=== PATIENT | male | born 1955 | race Caucasian/White ===

== ENCOUNTER 2020-04-12 | Outpatient (REF) | payer MEDICARE, OTHER, SELFPAY ==
[2020-04-12 10:28] LABS: MANUAL DIFF FLAG NO
[2020-04-12 10:44] LABS: Basophils Percent Auto 0.4 % (0-2); Eosinophils Absolute Auto 0.3 X10*3/uL (0.0-0.4); Eosinophils Percent Auto 4.6 % (0-4); Hematocrit 39.9 % (42-52); Hemoglobin 12.8 g/dl (14.0-18.0); Imm Gran Abs Auto 0.03 X10*3/uL (0.00-0.03); Imm Gran Pct Auto 0.4 % (0.0-0.4); Lymphocytes Absolute Auto 0.9 X10*3/uL (1.2-4.9); Lymphocytes Percent Auto 13.4 % (20-40); Mean Corpuscular HGB Conc 32.1 g/dl (31.0-36.0); Mean Corpuscular Hemoglobin 34.2 pg (27.0-33.0); Mean Corpuscular Volume 106.7 fL (80-98); Mean Platelet Volume 11.4 fL (9.4-12.4); Monocytes Absolute Auto 0.6 X10*3/uL (0.1-1.2); Monocytes Percent Auto 8.8 % (2-11); Neutrophils Percent Auto 72.4 % (45-73); Platelet Count 146 X10*3/uL (160-400); Red Blood Count 3.74 X10*6/uL (4.60-5.80); Red Cell Distribution Width 13.9 % (11.0-16.0); White Blood Count 6.9 X10*3/uL (4.8-10.8)
[2020-04-12 11:10] LABS: Alanine Aminotransferase 16 U/L (0-40); Albumin Level 3.7 g/dL (3.5-5.0); Alkaline Phosphatase 77 U/L (39-117); Anion Gap 10 (12-20); Aspartate Amino Transferase 17 U/L (5-37); Bilirubin Direct 0.4 mg/dL (0.0-0.5); Bilirubin Total 0.8 mg/dL (0.0-1.0); Blood Urea Nitrogen 13 mg/dL (9-16); Calcium 8.7 mg/dL (8.4-10.2); Carbon Dioxide 35 mmol/L (22-29); Chloride 98 mmol/L (96-108); Estimated Average Glucose 117 mg/dL; Estimated Glomerular Filt Rate > 60; Glucose Random 106 mg/dL (60-115); Hemoglobin A1c % 5.7 %; Sodium 139 mmol/L (135-145); Total Protein 6.7 g/dL (6.5-8.0); Uric Acid 4.1 mg/dL (3.4-7.0)
== END 2020-04-12 00:01 ==
LOC: HO.LHD
PROVIDERS: Visit Provider Internal Medicine
DX: R53.83 Other fatigue (principal); E11.9 Type 2 diabetes mellitus without complications; M10.9 Gout, unspecified
CPT/HCPCS: 36415; 80053; 80076; 83036; 84550; 85025

== ENCOUNTER 2020-06-13 07:25 | Outpatient (REF) | payer MEDICARE, OTHER, SELFPAY ==
[2020-06-13 11:54] LABS: Basophils Percent Auto 0.3 % (0-2); Eosinophils Absolute Auto 0.1 X10*3/uL (0.0-0.4); Eosinophils Percent Auto 1.6 % (0-4); Hematocrit 37.2 % (42-52); Hemoglobin 12.2 g/dl (14.0-18.0); Imm Gran Abs Auto 0.02 X10*3/uL (0.00-0.03); Imm Gran Pct Auto 0.3 % (0.0-0.4); Lymphocytes Absolute Auto 0.6 X10*3/uL (1.2-4.9); Lymphocytes Percent Auto 8.1 % (20-40); MANUAL DIFF FLAG SCAN; Mean Corpuscular HGB Conc 32.8 g/dl (31.0-36.0); Mean Corpuscular Hemoglobin 34.6 pg (27.0-33.0); Mean Corpuscular Volume 105.4 fL (80-98); Mean Platelet Volume 11.5 fL (9.4-12.4); Monocytes Absolute Auto 0.6 X10*3/uL (0.1-1.2); Monocytes Percent Auto 8.7 % (2-11); Neutrophils Absolute Auto 5.7 X10*3/uL (2.0-8.3); Platelet Count 159 X10*3/uL (160-400); Red Blood Count 3.53 X10*6/uL (4.60-5.80); Red Cell Distribution Width 14.3 % (11.0-16.0); SCAN SMEAR FLAG 1
[2020-06-13 12:22] LABS: Alanine Aminotransferase 15 U/L (0-40); Albumin Level 3.3 g/dL (3.5-5.0); Alkaline Phosphatase 77 U/L (39-117); Anion Gap 13 (12-20); Aspartate Amino Transferase 17 U/L (5-37); Bilirubin Total 0.7 mg/dL (0.0-1.0); Blood Urea Nitrogen 19 mg/dL (9-16); Calcium 8.6 mg/dL (8.4-10.2); Carbon Dioxide 34 mmol/L (22-29); Chloride 92 mmol/L (96-108); Estimated Glomerular Filt Rate > 60; Glucose Random 142 mg/dL (60-115); Potassium 4.5 mmol/L (3.3-5.1); Sodium 134 mmol/L (135-145); Total Protein 6.1 g/dL (6.5-8.0)
[2020-06-13 12:34] LABS: SLIDE REVIEW VERIFIED
== END 2020-06-13 07:26 | disposition home or self-care (01) ==
LOC: HO.LHD 07:25
PROVIDERS: Visit Provider Internal Medicine
DX: Z13.89 Encounter for screening for other disorder (principal)
CPT/HCPCS: 36415; 80053; 85025

== ENCOUNTER 2020-06-16 11:39 | Inpatient (IN) | payer MEDICARE, MEDICAID, SELFPAY ==
[2020-06-16] VITALS (17 sets, daily range): BP systolic 109–163; BP diastolic 54–116; PULSE 64–96; RESP 13–40; TEMP 35.6–36.7; O2SAT 80–99; BMI 64.2; BMI 65.3
--- NOTE | ~2020-06-16 | XR_ITS ---
EXAMINATION: XR ABDOMEN KUB CLINICAL INDICATION: Abdominal distention COMPARISON: None TECHNIQUE: AP view of the abdomen. XR/XR KUB FINDINGS/IMPRESSION: The study is nondiagnostic due to patient body habitus. The upper abdomen is not visualized. No definite evidence of obstruction in the lower abdomen and pelvis.
--- NOTE | ~2020-06-16 | XR_ITS ---
EXAMINATION: XR CHEST CLINICAL INFORMATION: SOB. Cardiomegaly. COMPARISON: None TECHNIQUE: Frontal view of the chest was obtained. FINDINGS: There is moderate to significant cardiomegaly with increased vascularity consistent CHF. The upper lungs are clear. There is moderate opacity left lung base likely effusion. No gross bony abnormality seen. XR/XR chest 1V IMPRESSION: Cardiomegaly with CHF.
[2020-06-16] MEDS: Furosemide 40 MG/4 ML VIAL IVPUSH (11:55)
--- NOTE | 2020-06-16 11:56 | ECG_ITS ---
Test Reason : DYSPNEA Blood Pressure : / mmHG Vent. Rate : 077 BPM Atrial Rate : 375 BPM P-R Int : 000 ms QRS Dur : 094 ms QT Int : 392 ms P-R-T Axes : 000 060 -14 degrees QTc Int : 443 ms Atrial fibrillation Low voltage QRS Cannot rule out Anterior infarct , age undetermined Abnormal ECG When compared with ECG of 11-JAN-2016 20:01, Minimal criteria for Anterior infarct are now Present Nonspecific T wave abnormality no longer evident in Lateral leads Referred By: Carlie Sutton Electronically Signed By:Barry Rae
[2020-06-16 12:06] LABS: Basophils Percent Auto 0.1 % (0-2); Eosinophils Percent Auto 0.1 % (0-4); Hematocrit 41.7 % (42-52); Hemoglobin 13.7 g/dl (14.0-18.0); Imm Gran Abs Auto 0.05 X10*3/uL (0.00-0.03); Imm Gran Pct Auto 0.5 % (0.0-0.4); Lymphocytes Absolute Auto 0.5 X10*3/uL (1.2-4.9); Lymphocytes Percent Auto 4.8 % (20-40); MANUAL DIFF FLAG SCAN; Mean Corpuscular HGB Conc 32.9 g/dl (31.0-36.0); Mean Corpuscular Hemoglobin 34.6 pg (27.0-33.0); Mean Corpuscular Volume 105.3 fL (80-98); Mean Platelet Volume 11.4 fL (9.4-12.4); Monocytes Absolute Auto 0.6 X10*3/uL (0.1-1.2); Neutrophils Absolute Auto 9.2 X10*3/uL (2.0-8.3); Neutrophils Percent Auto 88.5 % (45-73); Platelet Count 208 X10*3/uL (160-400); Red Blood Count 3.96 X10*6/uL (4.60-5.80); Red Cell Distribution Width 14.3 % (11.0-16.0); SCAN SMEAR FLAG 1; White Blood Count 10.4 X10*3/uL (4.8-10.8)
--- NOTE | 2020-06-16 12:07 | PC.NURSE ---
patient awake/alert, editor applied, ekg performed, iv access obtained/labs drawn, daughter at bedside states pt is a daily drinker of significant amounts of alcohol, 40 iv lasix given per verbal order by dr. stanton, RT at bedside, will continue to monitor.
[2020-06-16 12:12] LABS: VBG Base Excess 8.9 mmol/L; VBG HCO3 39 mmol/L (22-26); VBG pCO2 81 mmHg; VBG pH 7.29 (7.32-7.43); VBG pO2 40 mmHg
[2020-06-16 12:13] LABS: Venous Blood Gas Refer to POC result
[2020-06-16 12:20] LABS: Prothrombin Time 70.2 SEC (10.8-13.0)
[2020-06-16 12:22] LABS: INTERNATIONAL NORM RATIO 5.8 (0.9-1.1)
[2020-06-16 12:23] LABS: D Dimer < 200 NG/ML
[2020-06-16 12:29] LABS: SLIDE REVIEW VERIFIED
[2020-06-16 12:35] LABS: Alanine Aminotransferase 17 U/L (0-40); Albumin Level 3.8 g/dL (3.5-5.0); Alkaline Phosphatase 84 U/L (39-117); Anion Gap 14 (12-20); Aspartate Amino Transferase 22 U/L (5-37); Bilirubin Direct 0.3 mg/dL (0.0-0.5); Bilirubin Total 0.5 mg/dL (0.0-1.0); Blood Urea Nitrogen 17 mg/dL (9-16); Carbon Dioxide 34 mmol/L (22-29); Chloride 90 mmol/L (96-108); Creatinine Clr Calc Pharmacy 181.3; Estimated Glomerular Filt Rate > 60; Glucose Random 137 mg/dL (60-115); Potassium 4.7 mmol/L (3.3-5.1); Sodium 133 mmol/L (135-145); Total Protein 7.1 g/dL (6.5-8.0)
[2020-06-16 12:41] LABS: B Type Natriuretic Peptide 722 pg/mL (<100); Troponin-I High Sensitivity 58.8 ng/L (<3.5-35.0)
--- NOTE | 2020-06-16 12:54 | ED.GENADULT ---
HPI - General Adult General Chief complaint: Upper Respiratory Symptoms Stated complaint: SOB ON CPAP,NO COVID CONCERN Time Seen by Provider: 06/16/20 11:53 Source: EMS Mode of arrival: EMS Limitations: other History of Present Illness HPI narrative: Patient comes to emergency room complaining of shortness of breath. Patient is brought by EMS. Patient has history of CHF, denies history of COPD. Per EMS, patient was found at home, oxygen saturation in the high 70s, started on CPAP. Patient is awake and alert, denies chest pain, only complaining of shortness of breath. Related Data Home Medications Medication Instructions Recorded Confirmed allopurinol 1 tab PO DAILY 06/16/20 06/16/20 diltiazem HCl 180 mg PO BID 06/16/20 06/16/20 furosemide 1 tab PO DAILY 06/16/20 06/16/20 lisinopril 1 tab PO DAILY 06/16/20 06/16/20 lorazepam 1 tab PO TID PRN 06/16/20 06/16/20 metformin 1 tab PO BID 06/16/20 06/16/20 metoprolol tartrate 1 tab PO BID 06/16/20 06/16/20 oxycodone 5 tab PO NEEDED 06/16/20 06/16/20 oxycodone [OxyContin] 1 tab PO BID 06/16/20 06/16/20 oxycodone myristate [Xtampza ER] 1 cap PO BID 06/16/20 06/16/20 simvastatin 1 tab PO BEDTIME 06/16/20 06/16/20 warfarin 1 tab PO BEDTIME 06/16/20 06/16/20 warfarin 2 mg PO BEDTIME 06/16/20 06/16/20 Allergies Allergy/AdvReac Type Severity Reaction Status Date / Time codeine [Codeine] Allergy Intermediate RASH Verified 06/16/20 11:48 Review of Systems Review of Systems: Constitutional : No Weight loss, No Fever, No Chills ENT/Mouth : No Hearing loss, No Ear Pain, No Nasal Congestion, No Sinus Pain, No Hoarseness, No sore throat, No Rhinorrhea, No Swallowing Difficulty Eyes: No Eye Pain, No Swelling, No Redness, No Foreign Body, No Discharge, No Vision Changes Cardiovascular : No Chest Pain, complaining of shortness of breath, worsening orthopnea, decrease exercise tolerance Respiratory : No Cough, No Sputum, No Wheezing, No Smoke Exposure, complaining of dyspnea Gastrointestinal : No Nausea, No Vomiting, No Diarrhea, No Constipation, No abdominal Pain, No Hematochezia, No Melena Genitourinary : no irregular bleeding, No Dysuria, No Urinary Frequency, No Hematuria, No Urinary Incontinence, No Urgency, No Flank Pain, No Urinary Flow Changes, No Hesitancy Musculoskeletal : No joint pain, No Myalgias, No Joint Swelling Skin : No Skin Lesions, No rash Neuro : Complaining of chronic paresthesias in lower extremities Psych : No Anxiety/Panic, No Depression, No SI/HI Heme/Lymph: Easy bruising, patient on Coumadin Endocrine :No Temperature Intolerance PMFSH Past Medical History Medical History Afib Back pain with history of spinal surgery CHF (congestive heart failure) Diabetes History of gout HTN (hypertension) Hypercholesterolemia Knee osteoarthritis Morbid obesity Peripheral neuropathy Social History Social History Alcohol intake: current Alcohol intake frequency: 3 or more drinks per day Smoking Status: Never smoker Use of substances other than those prescribed or required for medical reasons: No Advance Directives: No Advance Directives Information Provided: No Physical Exam Vital Signs: Vital Signs: Last Vital Signs Temp 98.0 F 06/16/20 16:00 Pulse 73 06/16/20 16:00 Resp 30 H 06/16/20 16:00 BP 146/65 H 06/16/20 16:00 Pulse Ox 96 06/16/20 16:00 Body Mass Index 65.3 Appearance: Alert. Oriented X3. In mild to moderate respiratory distress, on BiPAP states he feels much better Eyes: Pupils equal, round and reactive to light. ENT: Pharynx normal. Neck: Normal inspection. Neck supple. CVS: S1-S2, occasional runs of AFib with RVR lasting approximately 10-20 seconds and self resolve Respiratory: In [id number] respiratory distress. Bibasilar crackles, No Wheezing. No rales Abdomen: Soft and nontender. No rigidity. No distention. good BS x4 Skin: Skin warm and dry. Extremities: +3 pitting edema bilaterally. Neuro: Cranial nerves 2-12 grossly intact Course Course Course Narrative: The patient and EMS, patient does not have history of asthma or COPD. Patient was put on BiPAP initially and given 60 mg of Lasix which improved his oxygen saturation and his mental status.. Patient was on BiPAP for 1 hour, patient is more alert, awake. Patient on 6 L. lactic acid and blood culture still pending. Patient's daughter is at bedside, she confirmed that the patient does not have history of COPD or asthma. Chest x-ray shows CHF with cardiomegaly, no suspicion of pneumonia or sepsis at this time. After the 1 hour of BiPAP, patient was on 4-6 L of nasal cannula. Patient gradually became more somnolent. Oxygen remained stable, oxygen 93% on 4 L nasal cannula, blood pressure 116/78, sepsis not suspected. Patient is once again is on BiPAP. I discussed the patient with Dr. Hinton, patient admitted to the ICU. Troponin of 58 likely secondary to demand ischemia. Troponin 2. Is pending On physical exam it was noted that the patient has abdominal distension, no abdominal tenderness. The KUB was nondiagnostic due to patient's body habitus. Patient does not fit through either of our CT scans, patient to be monitored clinically. Until now, patient has not been complaining of abdominal pain. Medical Decision Making Lab Data Result diagrams: 06/16/20 15:35 06/16/20 11:59 Labs: Lab Results 06/16/20 06/16/20 06/16/20 Range/Units 11:59 11:59 11:59 WBC 10.4 (4.8-10.8) X10*3/uL RBC 3.96 L (4.60-5.80) X10*6/uL Hgb 13.7 L (14.0-18.0) g/dl Hct 41.7 L (42-52) % MCV 105.3 H (80-98) fL MCH 34.6 H (27.0-33.0) pg MCHC 32.9 (31.0-36.0) g/dl RDW 14.3 (11.0-16.0) % Plt Count 208 D (160-400) X10*3/uL MPV 11.4 (9.4-12.4) fL Immature Gran % (Auto) 0.5 H (0.0-0.4) % Neut % (Auto) 88.5 H (45-73) % Lymph % (Auto) 4.8 L (20-40) % [place] % (Auto) 6.0 (2-11) % Eos % (Auto) 0.1 (0-4) % Baso % (Auto) 0.1 (0-2) % Lymph # (Auto) 0.5 L (1.2-4.9) X10*3/uL [place] # (Auto) 0.6 (0.1-1.2) X10*3/uL Eos # (Auto) 0.0 (0.0-0.4) X10*3/uL Baso # (Auto) 0.0 (0.0-0.2) X10*3/uL Abs Immat Gran (auto) 0.05 H (0.00-0.03) X10*3/uL Absolute Neuts (auto) 9.2 H (2.0-8.3) X10*3/uL Absolute Nucleated RBC 0.000 (0.0-0.012) X10*3/uL Nucleated RBC % (auto) 0.0 (0.0-0.2) /100WBC Smear Tech's Comments VERIFIED PT 70.2 H (10.8-13.0) SEC INR 5.8 H* (0.9-1.1) D-Dimer < 200 NG/ML VBG pH VBG pCO2 mmHg VBG pO2 mmHg VBG HCO3 (22-26) mmol/L VBG O2 Saturation % VBG Base Excess mmol/L Sodium 133 L (135-145) mmol/L Potassium 4.7 (3.3-5.1) mmol/L Chloride 90 L (96-108) mmol/L Carbon Dioxide 34 H (22-29) mmol/L Anion Gap 14 (12-20) BUN 17 H (9-16) mg/dL Creatinine 0.79 (0.5-1.4) mg/dL Estim Creat Clear Calc 181.3 Estimated GFR > 60 Random Glucose 137 H (60-115) mg/dL Lactic Acid (0.5-2.0) mmol/L Calcium 9.0 (8.4-10.2) mg/dL Total Bilirubin 0.5 (0.0-1.0) mg/dL Direct Bilirubin 0.3 (0.0-0.5) mg/dL AST 22 (5-37) U/L ALT 17 (0-40) U/L Alkaline Phosphatase 84 (39-117) U/L Troponin I High Sens (<3.5-35.0) ng/L B-Natriuretic Peptide (<100) pg/mL Total Protein 7.1 (6.5-8.0) g/dL Albumin 3.8 (3.5-5.0) g/dL Urine Color Urine Appearance Urine pH (5.0-8.0) Ur Specific [place] (1.005-1.025) Urine Protein (NEG-TRACE) MG/DL Urine Glucose (UA) (NEG) MG/DL Urine Ketones (NEG) MG/DL Urine Blood (NEG) Urine Nitrite (NEG) Ur Leukocyte Esterase (NEG) Urine RBC (0) /HPF Urine WBC (0-4) /HPF Ur Squamous Epith Cells /LPF Urine Bacteria /LPF Urine Mucus /LPF Ethyl Alcohol mg/dL Coronavirus (PCR) (Negative) Influenza Type A (PCR) (Negative) Influenza Type B (PCR) (Negative) RSV RNA Qual (PCR) (Negative) 06/16/20 06/16/20 06/16/20 Range/Units 11:59 11:59 12:02 WBC (4.8-10.8) X10*3/uL RBC (4.60-5.80) X10*6/uL Hgb (14.0-18.0) g/dl Hct (42-52) % MCV (80-98) fL MCH (27.0-33.0) pg MCHC (31.0-36.0) g/dl RDW (11.0-16.0) % Plt Count (160-400) X10*3/uL MPV (9.4-12.4) fL Immature Gran % (Auto) (0.0-0.4) % Neut % (Auto) (45-73) % Lymph % (Auto) (20-40) % [place] % (Auto) (2-11) % Eos % (Auto) (0-4) % Baso % (Auto) (0-2) % Lymph # (Auto) (1.2-4.9) X10*3/uL [place] # (Auto) (0.1-1.2) X10*3/uL Eos # (Auto) (0.0-0.4) X10*3/uL Baso # (Auto) (0.0-0.2) X10*3/uL Abs Immat Gran (auto) (0.00-0.03) X10*3/uL Absolute Neuts (auto) (2.0-8.3) X10*3/uL Absolute Nucleated RBC (0.0-0.012) X10*3/uL Nucleated RBC % (auto) (0.0-0.2) /100WBC Smear Tech's Comments PT (10.8-13.0) SEC INR (0.9-1.1) D-Dimer NG/ML VBG pH Cancelled VBG pCO2 mmHg VBG pO2 mmHg VBG HCO3 (22-26) mmol/L VBG O2 Saturation % VBG Base Excess mmol/L Sodium (135-145) mmol/L Potassium (3.3-5.1) mmol/L Chloride (96-108) mmol/L Carbon Dioxide (22-29) mmol/L Anion Gap (12-20) BUN (9-16) mg/dL Creatinine (0.5-1.4) mg/dL Estim Creat Clear Calc Estimated GFR Random Glucose (60-115) mg/dL Lactic Acid (0.5-2.0) mmol/L Calcium (8.4-10.2) mg/dL Total Bilirubin (0.0-1.0) mg/dL Direct Bilirubin (0.0-0.5) mg/dL AST (5-37) U/L ALT (0-40) U/L Alkaline Phosphatase (39-117) U/L Troponin I High Sens 58.8 H (<3.5-35.0) ng/L B-Natriuretic Peptide 722 H (<100) pg/mL Total Protein (6.5-8.0) g/dL Albumin (3.5-5.0) g/dL Urine Color Urine Appearance Urine pH (5.0-8.0) Ur Specific [place] (1.005-1.025) Urine Protein (NEG-TRACE) MG/DL Urine Glucose (UA) (NEG) MG/DL Urine Ketones (NEG) MG/DL Urine Blood (NEG) Urine Nitrite (NEG) Ur Leukocyte Esterase (NEG) Urine RBC (0) /HPF Urine WBC (0-4) /HPF Ur Squamous Epith Cells /LPF Urine Bacteria /LPF Urine Mucus /LPF Ethyl Alcohol < 10 mg/dL Coronavirus (PCR) (Negative) Influenza Type A (PCR) (Negative) Influenza Type B (PCR) (Negative) RSV RNA Qual (PCR) (Negative) 06/16/20 06/16/20 06/16/20 Range/Units 12:04 12:45 13:12 WBC (4.8-10.8) X10*3/uL RBC (4.60-5.80) X10*6/uL Hgb (14.0-18.0) g/dl Hct (42-52) % MCV (80-98) fL MCH (27.0-33.0) pg MCHC (31.0-36.0) g/dl RDW (11.0-16.0) % Plt Count (160-400) X10*3/uL MPV (9.4-12.4) fL Immature Gran % (Auto) (0.0-0.4) % Neut % (Auto) (45-73) % Lymph % (Auto) (20-40) % [place] % (Auto) (2-11) % Eos % (Auto) (0-4) % Baso % (Auto) (0-2) % Lymph # (Auto) (1.2-4.9) X10*3/uL [place] # (Auto) (0.1-1.2) X10*3/uL Eos # (Auto) (0.0-0.4) X10*3/uL Baso # (Auto) (0.0-0.2) X10*3/uL Abs Immat Gran (auto) (0.00-0.03) X10*3/uL Absolute Neuts (auto) (2.0-8.3) X10*3/uL Absolute Nucleated RBC (0.0-0.012) X10*3/uL Nucleated RBC % (auto) (0.0-0.2) /100WBC Smear Tech's Comments PT (10.8-13.0) SEC INR (0.9-1.1) D-Dimer NG/ML VBG pH 7.29 L VBG pCO2 81 mmHg VBG pO2 40 mmHg VBG HCO3 39 H (22-26) mmol/L VBG O2 Saturation 61.0 % VBG Base Excess 8.9 mmol/L Sodium (135-145) mmol/L Potassium (3.3-5.1) mmol/L Chloride (96-108) mmol/L Carbon Dioxide (22-29) mmol/L Anion Gap (12-20) BUN (9-16) mg/dL Creatinine (0.5-1.4) mg/dL Estim Creat Clear Calc Estimated GFR Random Glucose (60-115) mg/dL Lactic Acid (0.5-2.0) mmol/L Calcium (8.4-10.2) mg/dL Total Bilirubin (0.0-1.0) mg/dL Direct Bilirubin (0.0-0.5) mg/dL AST (5-37) U/L ALT (0-40) U/L Alkaline Phosphatase (39-117) U/L Troponin I High Sens (<3.5-35.0) ng/L B-Natriuretic Peptide (<100) pg/mL Total Protein (6.5-8.0) g/dL Albumin (3.5-5.0) g/dL Urine Color YELLOW Urine Appearance CLEAR Urine pH 6.5 (5.0-8.0) Ur Specific [place] 1.025 (1.005-1.025) Urine Protein TRACE (NEG-TRACE) MG/DL Urine Glucose (UA) NEG (NEG) MG/DL Urine Ketones NEG (NEG) MG/DL Urine Blood NEG (NEG) Urine Nitrite NEG (NEG) Ur Leukocyte Esterase NEG (NEG) Urine RBC 0 (0) /HPF Urine WBC 0-2 (0-4) /HPF Ur Squamous Epith Cells 1+ /LPF Urine Bacteria NONE /LPF Urine Mucus TRACE /LPF Ethyl Alcohol mg/dL Coronavirus (PCR) NEGATIVE (Negative) Influenza Type A (PCR) NEGATIVE (Negative) Influenza Type B (PCR) NEGATIVE (Negative) RSV RNA Qual (PCR) NEGATIVE (Negative) 06/16/20 06/16/20 Range/Units 14:18 14:22 WBC (4.8-10.8) X10*3/uL RBC (4.60-5.80) X10*6/uL Hgb (14.0-18.0) g/dl Hct (42-52) % MCV (80-98) fL MCH (27.0-33.0) pg MCHC (31.0-36.0) g/dl RDW (11.0-16.0) % Plt Count (160-400) X10*3/uL MPV (9.4-12.4) fL Immature Gran % (Auto) (0.0-0.4) % Neut % (Auto) (45-73) % Lymph % (Auto) (20-40) % [place] % (Auto) (2-11) % Eos % (Auto) (0-4) % Baso % (Auto) (0-2) % Lymph # (Auto) (1.2-4.9) X10*3/uL [place] # (Auto) (0.1-1.2) X10*3/uL Eos # (Auto) (0.0-0.4) X10*3/uL Baso # (Auto) (0.0-0.2) X10*3/uL Abs Immat Gran (auto) (0.00-0.03) X10*3/uL Absolute Neuts (auto) (2.0-8.3) X10*3/uL Absolute Nucleated RBC (0.0-0.012) X10*3/uL Nucleated RBC % (auto) (0.0-0.2) /100WBC Smear Tech's Comments PT (10.8-13.0) SEC INR (0.9-1.1) D-Dimer NG/ML VBG pH 7.29 L VBG pCO2 75 mmHg VBG pO2 45 mmHg VBG HCO3 37 H (22-26) mmol/L VBG O2 Saturation 71.0 % VBG Base Excess 7.1 mmol/L Sodium (135-145) mmol/L Potassium (3.3-5.1) mmol/L Chloride (96-108) mmol/L Carbon Dioxide (22-29) mmol/L Anion Gap (12-20) BUN (9-16) mg/dL Creatinine (0.5-1.4) mg/dL Estim Creat Clear Calc Estimated GFR Random Glucose (60-115) mg/dL Lactic Acid 1.7 (0.5-2.0) mmol/L Calcium (8.4-10.2) mg/dL Total Bilirubin (0.0-1.0) mg/dL Direct Bilirubin (0.0-0.5) mg/dL AST (5-37) U/L ALT (0-40) U/L Alkaline Phosphatase (39-117) U/L Troponin I High Sens (<3.5-35.0) ng/L B-Natriuretic Peptide (<100) pg/mL Total Protein (6.5-8.0) g/dL Albumin (3.5-5.0) g/dL Urine Color Urine Appearance Urine pH (5.0-8.0) Ur Specific [place] (1.005-1.025) Urine Protein (NEG-TRACE) MG/DL Urine Glucose (UA) (NEG) MG/DL Urine Ketones (NEG) MG/DL Urine Blood (NEG) Urine Nitrite (NEG) Ur Leukocyte Esterase (NEG) Urine RBC (0) /HPF Urine WBC (0-4) /HPF Ur Squamous Epith Cells /LPF Urine Bacteria /LPF Urine Mucus /LPF Ethyl Alcohol mg/dL Coronavirus (PCR) (Negative) Influenza Type A (PCR) (Negative) Influenza Type B (PCR) (Negative) RSV RNA Qual (PCR) (Negative) Imaging Data Chest x-ray: Radiologist's impression: FINDINGS: There is moderate to significant cardiomegaly with increased vascularity consistent CHF. The upper lungs are clear. There is moderate opacity left lung base likely effusion. No gross bony abnormality seen. XR/XR chest 1V IMPRESSION: Cardiomegaly with CHF. ECG Data Attestation: I personally reviewed and interpreted this ECG as follows: (Inhalation, heart rate 77, no ST segment depression or elevation) Critical Care Time Critical Care Time Total Critical Care Time: 120 Discharge Plan Discharge Clinical Impression: Respiratory failure CHF (congestive heart failure) Qualifiers: Heart failure type: other Qualified Code(s): I50.9 - Heart failure, unspecified Patient Disposition: Admitted As Inpatient
[2020-06-16 13:20] LABS: Glucose Urine UA NEG (NEG); Leukocyte Esterase Urine NEG (NEG); Nitrite Urine NEG (NEG); PH 6.5 (5.0-8.0); Specific Gravity - Urine 1.025 (1.005-1.025); Urine Blood NEG (NEG); Urine Ketones NEG (NEG); Urine Protein TRACE MG/DL (NEG-TRACE)
[2020-06-16 13:21] LABS: Appearance Urine CLEAR; Color Urine YELLOW
[2020-06-16] MEDS: LORazepam 1 MG TABLET PO (13:22)
[2020-06-16] MEDS: oxyCODONE HCl Immed Release 5 MG TABLET PO (13:22)
[2020-06-16 13:26] LABS: Mucus Urine TRACE /LPF; RBC Urine 0 /HPF (0); Squamous Epithelial Cell Urine 1+ /LPF; WBC Urine 0-2 /HPF (0-4)
[2020-06-16 13:28] LABS: Influenza A PCR NEGATIVE (Negative); Influenza B PCR NEGATIVE (Negative); Resp Syncy Virus RNA Qual PCR NEGATIVE (Negative); SARS COV2 PCR INHOUSE NEGATIVE (Negative)
--- NOTE | 2020-06-16 14:22 | PC.NURSE ---
patient a&ox3, daughter at bedside pt afib 60s-80s on organizational development specialist, 91% on NC, labs drawn by phlebotomy, will continue to monitor.
[2020-06-16 14:27] LABS: Venous Blood Gas Refer to POC result
[2020-06-16 14:29] LABS: VBG Base Excess 7.1 mmol/L; VBG HCO3 37 mmol/L (22-26); VBG pCO2 75 mmHg; VBG pH 7.29 (7.32-7.43); VBG pO2 45 mmHg
[2020-06-16 14:42] LABS: Lactic Acid 1.7 mmol/L (0.5-2.0)
[2020-06-16 15:45] LABS: Hematocrit 40.9 % (42-52); Hemoglobin 13.3 g/dl (14.0-18.0); Imm Gran Abs Auto 0.04 X10*3/uL (0.00-0.03); Imm Gran Pct Auto 0.4 % (0.0-0.4); Lymphocytes Absolute Auto 0.4 X10*3/uL (1.2-4.9); Lymphocytes Percent Auto 4.2 % (20-40); MANUAL DIFF FLAG SCAN; Mean Corpuscular HGB Conc 32.5 g/dl (31.0-36.0); Mean Corpuscular Hemoglobin 34.5 pg (27.0-33.0); Mean Corpuscular Volume 106.2 fL (80-98); Mean Platelet Volume 11.1 fL (9.4-12.4); Monocytes Absolute Auto 0.5 X10*3/uL (0.1-1.2); Monocytes Percent Auto 4.9 % (2-11); Neutrophils Absolute Auto 9.5 X10*3/uL (2.0-8.3); Neutrophils Percent Auto 90.5 % (45-73); Platelet Count 203 X10*3/uL (160-400); Red Blood Count 3.85 X10*6/uL (4.60-5.80); Red Cell Distribution Width 14.2 % (11.0-16.0); SCAN SMEAR FLAG 1; White Blood Count 10.5 X10*3/uL (4.8-10.8)
[2020-06-16 15:52] LABS: Ethanol < 10 mg/dL
[2020-06-16] MEDS: Heparin Sodium,Porcine 5,000 UNIT/ML VIAL 5000 UNIT SUBCUT (16:10)
--- NOTE | 2020-06-16 16:16 | PC.NURSE ---
patients daughter left, girlfriend isaiah now in room, patient put back on bipap by RT, pvc monitor afib 70s, vitals stable, chong cath inserted and emptied/documented to begin 1hr I&O, will continue to monitor.
[2020-06-16 16:26] LABS: Troponin-I High Sensitivity 60.4 ng/L (<3.5-35.0)
[2020-06-16] MEDS: Furosemide 500 MG in Container,Empty 0 ML IVCONT (17:44)
--- NOTE | 2020-06-16 17:45 | PC.NURSE ---
pharmacy mixed furosomide and brought to ed, now hanging per order
--- NOTE | 2020-06-16 19:05 | PC.NURSE ---
patient currently sleeping, son at bedside, pt afib on monitor ranging [id number], vss, chong cath patient/draining, will continue to monitor.
[2020-06-16 19:10] LABS: VBG HCO3 39 mmol/L (22-26); VBG pCO2 80 mmHg; VBG pH 7.29 (7.32-7.43); VBG pO2 40 mmHg
[2020-06-16 19:10] LABS: Venous Blood Gas Refer to POC result
--- NOTE | 2020-06-16 19:32 | PC.NURSE ---
poc 100, insulin held, SUGAR LABORATORY ASSISTANT in ICU aware, son at bedside spoke with SUGAR LABORATORY ASSISTANT, will continue to monitor.
[2020-06-16 19:38] LABS: Glucose, Whole Blood 100 mg/dL (60-115)
--- NOTE | 2020-06-16 20:10 | P.HPCC_ITS ---
History of Present Illness Date of Service: 06/16/20 Chief Complaint: Shortness of breath This is a 64-year-old male with a past medical history of congestive heart failure ( last known echo EF 55-60%), atrial fibrillation ( Coumadin), morbid obesity, COPD, diabetes mellitus, hypertension, peripheral neuropathy and osteoarthritis Who presented to the emergency room after family called EMS due to patient being extremely short of breath. Per EMS patient saturations were in the 70s at home, was placed on CPAP. VBGS: 7.29/81/40/39. Laboratory date significant: Na133, Chloride 90, Bicarb 34, BNP 722. Imaging: Chest Xray: Consisted with CHF exacerbation ABD Xray: no acute abnormality In the ER he received Lasix 40 mg and placed on BiPAP. He will be admitted into the ICU for management of Congestive heart failure exacerbation require BiPAP support. Review of Systems Review of Systems: Patient on BiPAP not able to performed PMFSH Past Medical History Medical History Afib Back pain with history of spinal surgery CHF (congestive heart failure) Diabetes History of gout HTN (hypertension) Hypercholesterolemia Knee osteoarthritis Morbid obesity Peripheral neuropathy Social History Social History Alcohol intake: current Alcohol intake frequency: 3 or more drinks per day Smoking Status: Never smoker Use of substances other than those prescribed or required for medical reasons: No Advance Directives: No Advance Directives Information Provided: No Meds Allergies Allergy/AdvReac Type Severity Reaction Status Date / Time codeine [Codeine] Allergy Intermediate RASH Verified 06/16/20 11:48 Active Medications: Current Medications Generic Name Dose Route Start Last Admin Trade Name Jakeq PRN Reason Stop Dose Admin Heparin Sodium (Porcine) 5,000 unit 06/16/20 16:00 06/16/20 16:10 Heparin Sodium,Porcine 5,000 Unit/Ml Vial SUBCUT 5,000 unit Q8H MARIANELA Administration Furosemide 500 mg/ IV 50 mls @ 0.5 mls/hr 06/16/20 15:30 06/16/20 17:44 Miscellaneous Supplies IVCONT 5 mg/hr .Q24H MARIANELA 0.5 mls/hr Administration 5 MG/HR Insulin Human Lispro 0 unit 06/16/20 18:00 06/16/20 19:32 Insulin Lispro 100 Unit/Ml 3 Ml Vial SUBCUT Not Given Q6H MARIANELA Protocol Ondansetron HCl 4 mg 06/16/20 15:21 Ondansetron Hcl 4 Mg/2 Ml Vial IVPUSH Q8H PRN Nausea Pharmacy Consult 1 each 06/16/20 14:54 Consult Rx Perform Med Rec MISCELLANE ONCE PRN Consult order Home Medications Medication Instructions Recorded Confirmed Last Taken Type allopurinol 1 tab PO DAILY 06/16/20 06/16/20 Unknown History diltiazem HCl 180 mg PO BID 06/16/20 06/16/20 Unknown History furosemide 1 tab PO DAILY 06/16/20 06/16/20 Unknown History lisinopril 1 tab PO DAILY 06/16/20 06/16/20 Unknown History lorazepam 1 tab PO TID PRN 06/16/20 06/16/20 Unknown History metformin 1 tab PO BID 06/16/20 06/16/20 Unknown History metoprolol tartrate 1 tab PO BID 06/16/20 06/16/20 Unknown History oxycodone 5 tab PO NEEDED 06/16/20 06/16/20 Unknown History oxycodone [OxyContin] 1 tab PO BID 06/16/20 06/16/20 Unknown History oxycodone myristate [Xtampza ER] 1 cap PO BID 06/16/20 06/16/20 Unknown History simvastatin 1 tab PO BEDTIME 06/16/20 06/16/20 Unknown History warfarin 1 tab PO BEDTIME 06/16/20 06/16/20 Unknown History warfarin 2 mg PO BEDTIME 06/16/20 06/16/20 Unknown History Physical Exam Vital Signs: Vital Signs: Last Vital Signs Temp 96.1 F L 06/16/20 17:02 Pulse 89 06/16/20 18:58 Resp 24 H 06/16/20 18:58 BP 140/55 H 06/16/20 18:58 Pulse Ox 95 06/16/20 18:58 Body Mass Index 65.3 General: comfortable on BIPAP, A&Ox3 Head: Normocephalic. Eyes: Pupils are equal, round and reactive to light. Extraocular muscles intact. Ear, Nose and Throat: mucous membranes moist. Ears and nose without masses, lesions or deformities. Trachea midline. Neck: Supple, Full range of motion. Respiratory: Lungs with rhonchi throughout. On BIPAP Cardiovascular: S1 S2 regular. No murmurs, rubs or gallops. Gastrointestinal: Abdomen potruding but soft, non-tender. Normal bowel sounds. Genitourinary: Joaquin catheter Extremities: Lymphedema in bilateral lower extremities Results Labs CBC and Chem 7: 06/16/20 15:35 06/16/20 11:59 Labs: Laboratory Results - last 24 hr 06/16/20 06/16/20 06/16/20 11:59 11:59 11:59 MCV 105.3 H MCH 34.6 H MCHC 32.9 RDW 14.3 Plt Count 208 D MPV 11.4 Immature Gran % (Auto) 0.5 H Neut % (Auto) 88.5 H Lymph % (Auto) 4.8 L Blaine % (Auto) 6.0 Eos % (Auto) 0.1 Baso % (Auto) 0.1 Lymph # (Auto) 0.5 L Blaine # (Auto) 0.6 Eos # (Auto) 0.0 Baso # (Auto) 0.0 Abs Immat Gran (auto) 0.05 H Absolute Neuts (auto) 9.2 H Absolute Nucleated RBC 0.000 Nucleated RBC % (auto) 0.0 Smear Tech's Comments VERIFIED PT 70.2 H INR 5.8 H* D-Dimer < 200 VBG pH VBG pCO2 VBG pO2 VBG HCO3 VBG O2 Saturation VBG Base Excess Anion Gap 14 Estim Creat Clear Calc 181.3 Estimated GFR > 60 POC Glucose Random Glucose 137 H Lactic Acid Calcium 9.0 Total Bilirubin 0.5 Direct Bilirubin 0.3 AST 22 ALT 17 Alkaline Phosphatase 84 Troponin I High Sens B-Natriuretic Peptide Total Protein 7.1 Albumin 3.8 Urine Color Urine Appearance Urine pH Ur Specific [place] Urine Protein Urine Glucose (UA) Urine Ketones Urine Blood Urine Nitrite Ur Leukocyte Esterase Urine RBC Urine WBC Ur Squamous Epith Cells Urine Bacteria Urine Mucus Ethyl Alcohol Coronavirus (PCR) Influenza Type A (PCR) Influenza Type B (PCR) RSV RNA Qual (PCR) 06/16/20 06/16/20 06/16/20 11:59 11:59 12:02 MCV MCH MCHC RDW Plt Count MPV Immature Gran % (Auto) Neut % (Auto) Lymph % (Auto) Blaine % (Auto) Eos % (Auto) Baso % (Auto) Lymph # (Auto) Blaine # (Auto) Eos # (Auto) Baso # (Auto) Abs Immat Gran (auto) Absolute Neuts (auto) Absolute Nucleated RBC Nucleated RBC % (auto) Smear Tech's Comments PT INR D-Dimer VBG pH Cancelled VBG pCO2 VBG pO2 VBG HCO3 VBG O2 Saturation VBG Base Excess Anion Gap Estim Creat Clear Calc Estimated GFR POC Glucose Random Glucose Lactic Acid Calcium Total Bilirubin Direct Bilirubin AST ALT Alkaline Phosphatase Troponin I High Sens 58.8 H B-Natriuretic Peptide 722 H Total Protein Albumin Urine Color Urine Appearance Urine pH Ur Specific [place] Urine Protein Urine Glucose (UA) Urine Ketones Urine Blood Urine Nitrite Ur Leukocyte Esterase Urine RBC Urine WBC Ur Squamous Epith Cells Urine Bacteria Urine Mucus Ethyl Alcohol < 10 Coronavirus (PCR) Influenza Type A (PCR) Influenza Type B (PCR) RSV RNA Qual (PCR) 06/16/20 06/16/20 06/16/20 12:04 12:45 13:12 MCV MCH MCHC RDW Plt Count MPV Immature Gran % (Auto) Neut % (Auto) Lymph % (Auto) [place] % (Auto) Eos % (Auto) Baso % (Auto) Lymph # (Auto) [place] # (Auto) Eos # (Auto) Baso # (Auto) Abs Immat Gran (auto) Absolute Neuts (auto) Absolute Nucleated RBC Nucleated RBC % (auto) Smear Tech's Comments PT INR D-Dimer VBG pH 7.29 L VBG pCO2 81 VBG pO2 40 VBG HCO3 39 H VBG O2 Saturation 61.0 VBG Base Excess 8.9 Anion Gap Estim Creat Clear Calc Estimated GFR POC Glucose Random Glucose Lactic Acid Calcium Total Bilirubin Direct Bilirubin AST ALT Alkaline Phosphatase Troponin I High Sens B-Natriuretic Peptide Total Protein Albumin Urine Color YELLOW Urine Appearance CLEAR Urine pH 6.5 Ur Specific [place] 1.025 Urine Protein TRACE Urine Glucose (UA) NEG Urine Ketones NEG Urine Blood NEG Urine Nitrite NEG Ur Leukocyte Esterase NEG Urine RBC 0 Urine WBC 0-2 Ur Squamous Epith Cells 1+ Urine Bacteria NONE Urine Mucus TRACE Ethyl Alcohol Coronavirus (PCR) NEGATIVE Influenza Type A (PCR) NEGATIVE Influenza Type B (PCR) NEGATIVE RSV RNA Qual (PCR) NEGATIVE 06/16/20 06/16/20 06/16/20 14:18 14:22 15:35 MCV MCH MCHC RDW Plt Count MPV Immature Gran % (Auto) Neut % (Auto) Lymph % (Auto) [place] % (Auto) Eos % (Auto) Baso % (Auto) Lymph # (Auto) [place] # (Auto) Eos # (Auto) Baso # (Auto) Abs Immat Gran (auto) Absolute Neuts (auto) Absolute Nucleated RBC Nucleated RBC % (auto) Smear Tech's Comments PT INR D-Dimer VBG pH 7.29 L VBG pCO2 75 VBG pO2 45 VBG HCO3 37 H VBG O2 Saturation 71.0 VBG Base Excess 7.1 Anion Gap Estim Creat Clear Calc Estimated GFR POC Glucose Random Glucose Lactic Acid 1.7 Calcium Total Bilirubin Direct Bilirubin AST ALT Alkaline Phosphatase Troponin I High Sens 60.4 H B-Natriuretic Peptide Total Protein Albumin Urine Color Urine Appearance Urine pH Ur Specific [place] Urine Protein Urine Glucose (UA) Urine Ketones Urine Blood Urine Nitrite Ur Leukocyte Esterase Urine RBC Urine WBC Ur Squamous Epith Cells Urine Bacteria Urine Mucus Ethyl Alcohol Coronavirus (PCR) Influenza Type A (PCR) Influenza Type B (PCR) RSV RNA Qual (PCR) 06/16/20 06/16/20 06/16/20 15:35 19:01 19:29 MCV 106.2 H MCH 34.5 H MCHC 32.5 RDW 14.2 Plt Count 203 MPV 11.1 Immature Gran % (Auto) 0.4 Neut % (Auto) 90.5 H Lymph % (Auto) 4.2 L [place] % (Auto) 4.9 Eos % (Auto) 0.0 Baso % (Auto) 0.0 Lymph # (Auto) 0.4 L [place] # (Auto) 0.5 Eos # (Auto) 0.0 Baso # (Auto) 0.0 Abs Immat Gran (auto) 0.04 H Absolute Neuts (auto) 9.5 H Absolute Nucleated RBC 0.000 Nucleated RBC % (auto) 0.0 Smear Tech's Comments PT INR D-Dimer VBG pH 7.29 L VBG pCO2 80 VBG pO2 40 VBG HCO3 39 H VBG O2 Saturation 67.0 VBG Base Excess 9.0 Anion Gap Estim Creat Clear Calc Estimated GFR POC Glucose 100 Random Glucose Lactic Acid Calcium Total Bilirubin Direct Bilirubin AST ALT Alkaline Phosphatase Troponin I High Sens B-Natriuretic Peptide Total Protein Albumin Urine Color Urine Appearance Urine pH Ur Specific [place] Urine Protein Urine Glucose (UA) Urine Ketones Urine Blood Urine Nitrite Ur Leukocyte Esterase Urine RBC Urine WBC Ur Squamous Epith Cells Urine Bacteria Urine Mucus Ethyl Alcohol Coronavirus (PCR) Influenza Type A (PCR) Influenza Type B (PCR) RSV RNA Qual (PCR) Imaging Radiologist's Impressions: Impressions Chest X-Ray 06/16/20 11:56 IMPRESSION: Cardiomegaly with CHF. KUB X-Ray 06/16/20 16:17 FINDINGS/IMPRESSION: The study is nondiagnostic due to patient body habitus. The upper abdomen is not visualized. No definite evidence of obstruction in the lower abdomen and pelvis. Assessment and Plan (1) CHF (congestive heart failure): Qualifiers: Heart failure type: other Qualified Code(s): I50.9 - Heart failure, unspecified Status: Acute 64-year-old male with a history of noncompliance, now with Congestive heart failure exacerbation Plan: Neuro: No acute issues Cardiac: Congestive heart failure exacerbation- Elevated BNP, no significant abnormalities in laboratory data. According to son, he is very non compliant wit h medication regimen. chest x-ray does show some congestion. Last recorded echo from January of 2016 it did show EF of 55-60%. Will place on lasix drip. Echo in the morning Pulmonary: Acute hypercapnic respiratory failure- Patient was in acute respiratory distress whe arrived to ED. Placed on BiPAP. Will cont to diuresed and wean from BiPAP as tolerated/ Renal: No acute issues Endo: No acute issues. GI: No acute issues. Heme/Onc: No acute issues. Psych: No acute issues. Miscellaneous: No acute issues. Prophylaxis: Heparin diet : NPO CODE: FULL VERONICA Critical care time: x 60 min of critical care (2) Morbid obesity: Status: Acute (3) Hypercapnic respiratory failure: Status: Acute (4) Uncontrolled hypertension: Status: Acute
[2020-06-16 21:10] LABS: Glucose, Whole Blood 131 mg/dL (60-115)
--- NOTE | 2020-06-16 21:45 | PC.NURSE ---
This RN called daughter Maxim to give an update at [id number]. Mailbox on cell phone is full.
[2020-06-16] MEDS: Nystatin Powder 15 GM BOTTLE 1 APPL TOPICAL (22:22)
[2020-06-17] VITALS (25 sets, daily range): BP systolic 118–170; BP diastolic 47–95; PULSE 48–111; RESP 18–35; TEMP 35.6–36.8; O2SAT 87–97
[2020-06-17 00:01] LABS: Glucose, Whole Blood 115 mg/dL (60-115)
[2020-06-17 06:13] LABS: VBG Base Excess 10.1 mmol/L; VBG HCO3 37 mmol/L (22-26); VBG pCO2 63 mmHg; VBG pH 7.38 (7.32-7.43); VBG pO2 51 mmHg
[2020-06-17 06:14] LABS: Glucose, Whole Blood 94 mg/dL (60-115)
[2020-06-17 06:16] LABS: Venous Blood Gas Refer to POC result
[2020-06-17 06:29] LABS: Prothrombin Time 92.5 SEC (10.8-13.0)
[2020-06-17 06:34] LABS: INTERNATIONAL NORM RATIO 7.6 (0.9-1.1)
[2020-06-17 06:47] LABS: Alanine Aminotransferase 15 U/L (0-40); Albumin Level 3.4 g/dL (3.5-5.0); Alkaline Phosphatase 73 U/L (39-117); Anion Gap 12 (12-20); Aspartate Amino Transferase 17 U/L (5-37); Bilirubin Total 0.4 mg/dL (0.0-1.0); Blood Urea Nitrogen 17 mg/dL (9-16); Calcium 8.9 mg/dL (8.4-10.2); Carbon Dioxide 38 mmol/L (22-29); Chloride 93 mmol/L (96-108); Creatinine Clr Calc Pharmacy 181.3; Estimated Glomerular Filt Rate > 60; Glucose Random 109 mg/dL (60-115); Magnesium 1.4 mg/dL (1.6-2.6); Phosphorus 3.8 mg/dL (2.7-4.5); Potassium 4.6 mmol/L (3.3-5.1); Sodium 138 mmol/L (135-145); Total Protein 6.3 g/dL (6.5-8.0)
[2020-06-17] MEDS: Phytonadione (Vit K1) 5 MG in 0.9 % Sodium Chloride 50 ML 50.5 MG IV (07:20)
[2020-06-17 07:56] LABS: Glucose, Whole Blood 105 mg/dL (60-115)
[2020-06-17] MEDS: Nystatin Powder 15 GM BOTTLE 1 APPL TOPICAL ×2 (08:08→20:04)
--- NOTE | 2020-06-17 08:41 | MHC.CM.PN ---
CM spoke with adiel Pan by phone [phone] who reports patient lives with S.O., amb with a walker and uses a scooter for distance. No HCP on file, patient is not able to sign one today r/t Bipap and sedated. Discussed discharge plan which will be home no services. Family will provide transport. CM will continue to follow for discharge needs.
[2020-06-17] MEDS: Magnesium Sulfate/H2O 2 GM/50 ML PIGGYBACK IV ×2 (09:40→20:13)
--- NOTE | 2020-06-17 11:08 | P.PNCC_ITS ---
Subjective Subjective Date of Service: 06/17/20 Interval History: 64-year-old gentleman with underlying history of morbid obesity, diabetes, hypertension, congestive heart failure, COPD, peripheral neuropathy admitted on 06/16/2020 with several day history of progressive dyspnea secondary to exacerbation of underlying congestive heart failure initially requiring BiPAP support and coagulopathy. Patient has been started on diuretic and transferred to intensive care unit. Overnight he has been titrated off BiPAP. He has received vitamin K and FFP correction of his underlying elevated INR. Physical Exam Vital Signs: Vital Signs: Last Vital Signs Temp 97.7 F 06/17/20 10:23 Pulse 107 H 06/17/20 10:23 Resp 31 H 06/17/20 10:23 BP 131/64 06/17/20 10:23 Pulse Ox 89 L 06/17/20 10:23 Body Mass Index 65.3 Const: General: no acute distress, alert and awake Nutritional Appearance: obese and Edematous Eyes: Sclerae: sclerae normal EOM: EOMs intact bilaterally Neck: Neck: Yes no lymphadenopathy, Yes trachea midline and Yes supple Resp: Effort & Inspection: normal respiratory effort and no respiratory distress Auscultation: crackles (Diffuse bilateral) Cardio: Rate: tachycardic Rhythm: abnormal rhythm irregularly irregular Heart sounds: no gallops, no murmurs and no rubs GI: Palpation (GI): Soft to palpation and Other GI palpation findings present ( Nontender) Auscultation: normal bowel sounds Extrem: General: No clubbing, No cyanosis and Yes pedal edema (2+ bilateral) Objective Data Labs CBC & Chem 7: 06/16/20 15:35 06/17/20 05:52 Labs: Laboratory Results - last 24 hr 06/16/20 06/16/20 06/16/20 11:59 11:59 11:59 WBC 10.4 RBC 3.96 L Hgb 13.7 L Hct 41.7 L MCV 105.3 H MCH 34.6 H MCHC 32.9 RDW 14.3 Plt Count 208 D MPV 11.4 Immature Gran % (Auto) 0.5 H Neut % (Auto) 88.5 H Lymph % (Auto) 4.8 L [place] % (Auto) 6.0 Eos % (Auto) 0.1 Baso % (Auto) 0.1 Lymph # (Auto) 0.5 L [place] # (Auto) 0.6 Eos # (Auto) 0.0 Baso # (Auto) 0.0 Abs Immat Gran (auto) 0.05 H Absolute Neuts (auto) 9.2 H Absolute Nucleated RBC 0.000 Nucleated RBC % (auto) 0.0 Smear Tech's Comments VERIFIED PT 70.2 H INR 5.8 H* D-Dimer < 200 VBG pH VBG pCO2 VBG pO2 VBG HCO3 VBG O2 Saturation VBG Base Excess Sodium 133 L Potassium 4.7 Chloride 90 L Carbon Dioxide 34 H Anion Gap 14 BUN 17 H Creatinine 0.79 Estim Creat Clear Calc 181.3 Estimated GFR > 60 POC Glucose Random Glucose 137 H Lactic Acid Calcium 9.0 Phosphorus Magnesium Total Bilirubin 0.5 Direct Bilirubin 0.3 AST 22 ALT 17 Alkaline Phosphatase 84 Troponin I High Sens B-Natriuretic Peptide Total Protein 7.1 Albumin 3.8 Urine Color Urine Appearance Urine pH Ur Specific [place] Urine Protein Urine Glucose (UA) Urine Ketones Urine Blood Urine Nitrite Ur Leukocyte Esterase Urine RBC Urine WBC Ur Squamous Epith Cells Urine Bacteria Urine Mucus Ethyl Alcohol Coronavirus (PCR) Influenza Type A (PCR) Influenza Type B (PCR) RSV RNA Qual (PCR) Blood Type Antibody Screen 06/16/20 06/16/20 06/16/20 11:59 11:59 12:02 WBC RBC Hgb Hct MCV MCH MCHC RDW Plt Count MPV Immature Gran % (Auto) Neut % (Auto) Lymph % (Auto) [place] % (Auto) Eos % (Auto) Baso % (Auto) Lymph # (Auto) [place] # (Auto) Eos # (Auto) Baso # (Auto) Abs Immat Gran (auto) Absolute Neuts (auto) Absolute Nucleated RBC Nucleated RBC % (auto) Smear Tech's Comments PT INR D-Dimer VBG pH Cancelled VBG pCO2 VBG pO2 VBG HCO3 VBG O2 Saturation VBG Base Excess Sodium Potassium Chloride Carbon Dioxide Anion Gap BUN Creatinine Estim Creat Clear Calc Estimated GFR POC Glucose Random Glucose Lactic Acid Calcium Phosphorus Magnesium Total Bilirubin Direct Bilirubin AST ALT Alkaline Phosphatase Troponin I High Sens 58.8 H B-Natriuretic Peptide 722 H Total Protein Albumin Urine Color Urine Appearance Urine pH Ur Specific [place] Urine Protein Urine Glucose (UA) Urine Ketones Urine Blood Urine Nitrite Ur Leukocyte Esterase Urine RBC Urine WBC Ur Squamous Epith Cells Urine Bacteria Urine Mucus Ethyl Alcohol < 10 Coronavirus (PCR) Influenza Type A (PCR) Influenza Type B (PCR) RSV RNA Qual (PCR) Blood Type Antibody Screen 06/16/20 06/16/20 06/16/20 12:04 12:45 13:12 WBC RBC Hgb Hct MCV MCH MCHC RDW Plt Count MPV Immature Gran % (Auto) Neut % (Auto) Lymph % (Auto) [place] % (Auto) Eos % (Auto) Baso % (Auto) Lymph # (Auto) [place] # (Auto) Eos # (Auto) Baso # (Auto) Abs Immat Gran (auto) Absolute Neuts (auto) Absolute Nucleated RBC Nucleated RBC % (auto) Smear Tech's Comments PT INR D-Dimer VBG pH 7.29 L VBG pCO2 81 VBG pO2 40 VBG HCO3 39 H VBG O2 Saturation 61.0 VBG Base Excess 8.9 Sodium Potassium Chloride Carbon Dioxide Anion Gap BUN Creatinine Estim Creat Clear Calc Estimated GFR POC Glucose Random Glucose Lactic Acid Calcium Phosphorus Magnesium Total Bilirubin Direct Bilirubin AST ALT Alkaline Phosphatase Troponin I High Sens B-Natriuretic Peptide Total Protein Albumin Urine Color YELLOW Urine Appearance CLEAR Urine pH 6.5 Ur Specific [place] 1.025 Urine Protein TRACE Urine Glucose (UA) NEG Urine Ketones NEG Urine Blood NEG Urine Nitrite NEG Ur Leukocyte Esterase NEG Urine RBC 0 Urine WBC 0-2 Ur Squamous Epith Cells 1+ Urine Bacteria NONE Urine Mucus TRACE Ethyl Alcohol Coronavirus (PCR) NEGATIVE Influenza Type A (PCR) NEGATIVE Influenza Type B (PCR) NEGATIVE RSV RNA Qual (PCR) NEGATIVE Blood Type Antibody Screen 06/16/20 06/16/20 06/16/20 14:18 14:22 15:35 WBC RBC Hgb Hct MCV MCH MCHC RDW Plt Count MPV Immature Gran % (Auto) Neut % (Auto) Lymph % (Auto) [place] % (Auto) Eos % (Auto) Baso % (Auto) Lymph # (Auto) [place] # (Auto) Eos # (Auto) Baso # (Auto) Abs Immat Gran (auto) Absolute Neuts (auto) Absolute Nucleated RBC Nucleated RBC % (auto) Smear Tech's Comments PT INR D-Dimer VBG pH 7.29 L VBG pCO2 75 VBG pO2 45 VBG HCO3 37 H VBG O2 Saturation 71.0 VBG Base Excess 7.1 Sodium Potassium Chloride Carbon Dioxide Anion Gap BUN Creatinine Estim Creat Clear Calc Estimated GFR POC Glucose Random Glucose Lactic Acid 1.7 Calcium Phosphorus Magnesium Total Bilirubin Direct Bilirubin AST ALT Alkaline Phosphatase Troponin I High Sens 60.4 H B-Natriuretic Peptide Total Protein Albumin Urine Color Urine Appearance Urine pH Ur Specific [place] Urine Protein Urine Glucose (UA) Urine Ketones Urine Blood Urine Nitrite Ur Leukocyte Esterase Urine RBC Urine WBC Ur Squamous Epith Cells Urine Bacteria Urine Mucus Ethyl Alcohol Coronavirus (PCR) Influenza Type A (PCR) Influenza Type B (PCR) RSV RNA Qual (PCR) Blood Type Antibody Screen 06/16/20 06/16/20 06/16/20 15:35 19:01 19:29 WBC 10.5 RBC 3.85 L Hgb 13.3 L Hct 40.9 L MCV 106.2 H MCH 34.5 H MCHC 32.5 RDW 14.2 Plt Count 203 MPV 11.1 Immature Gran % (Auto) 0.4 Neut % (Auto) 90.5 H Lymph % (Auto) 4.2 L [place] % (Auto) 4.9 Eos % (Auto) 0.0 Baso % (Auto) 0.0 Lymph # (Auto) 0.4 L [place] # (Auto) 0.5 Eos # (Auto) 0.0 Baso # (Auto) 0.0 Abs Immat Gran (auto) 0.04 H Absolute Neuts (auto) 9.5 H Absolute Nucleated RBC 0.000 Nucleated RBC % (auto) 0.0 Smear Tech's Comments PT INR D-Dimer VBG pH 7.29 L VBG pCO2 80 VBG pO2 40 VBG HCO3 39 H VBG O2 Saturation 67.0 VBG Base Excess 9.0 Sodium Potassium Chloride Carbon Dioxide Anion Gap BUN Creatinine Estim Creat Clear Calc Estimated GFR POC Glucose 100 Random Glucose Lactic Acid Calcium Phosphorus Magnesium Total Bilirubin Direct Bilirubin AST ALT Alkaline Phosphatase Troponin I High Sens B-Natriuretic Peptide Total Protein Albumin Urine Color Urine Appearance Urine pH Ur Specific [place] Urine Protein Urine Glucose (UA) Urine Ketones Urine Blood Urine Nitrite Ur Leukocyte Esterase Urine RBC Urine WBC Ur Squamous Epith Cells Urine Bacteria Urine Mucus Ethyl Alcohol Coronavirus (PCR) Influenza Type A (PCR) Influenza Type B (PCR) RSV RNA Qual (PCR) Blood Type Antibody Screen 06/16/20 06/16/20 06/17/20 21:06 23:57 05:52 WBC RBC Hgb Hct MCV MCH MCHC RDW Plt Count MPV Immature Gran % (Auto) Neut % (Auto) Lymph % (Auto) [place] % (Auto) Eos % (Auto) Baso % (Auto) Lymph # (Auto) [place] # (Auto) Eos # (Auto) Baso # (Auto) Abs Immat Gran (auto) Absolute Neuts (auto) Absolute Nucleated RBC Nucleated RBC % (auto) Smear Tech's Comments PT INR D-Dimer VBG pH VBG pCO2 VBG pO2 VBG HCO3 VBG O2 Saturation VBG Base Excess Sodium 138 Potassium 4.6 Chloride 93 L Carbon Dioxide 38 H Anion Gap 12 BUN 17 H Creatinine 0.79 Estim Creat Clear Calc 181.3 Estimated GFR > 60 POC Glucose 131 H 115 Random Glucose 109 Lactic Acid Calcium 8.9 Phosphorus 3.8 Magnesium 1.4 L* Total Bilirubin 0.4 Direct Bilirubin AST 17 ALT 15 Alkaline Phosphatase 73 Troponin I High Sens B-Natriuretic Peptide Total Protein 6.3 L Albumin 3.4 L Urine Color Urine Appearance Urine pH Ur Specific [place] Urine Protein Urine Glucose (UA) Urine Ketones Urine Blood Urine Nitrite Ur Leukocyte Esterase Urine RBC Urine WBC Ur Squamous Epith Cells Urine Bacteria Urine Mucus Ethyl Alcohol Coronavirus (PCR) Influenza Type A (PCR) Influenza Type B (PCR) RSV RNA Qual (PCR) Blood Type Antibody Screen 06/17/20 06/17/20 06/17/20 05:52 06:06 06:11 WBC RBC Hgb Hct MCV MCH MCHC RDW Plt Count MPV Immature Gran % (Auto) Neut % (Auto) Lymph % (Auto) [place] % (Auto) Eos % (Auto) Baso % (Auto) Lymph # (Auto) [place] # (Auto) Eos # (Auto) Baso # (Auto) Abs Immat Gran (auto) Absolute Neuts (auto) Absolute Nucleated RBC Nucleated RBC % (auto) Smear Tech's Comments PT 92.5 H D INR 7.6 H* D D-Dimer VBG pH 7.38 VBG pCO2 63 VBG pO2 51 VBG HCO3 37 H VBG O2 Saturation 85.0 VBG Base Excess 10.1 Sodium Potassium Chloride Carbon Dioxide Anion Gap BUN Creatinine Estim Creat Clear Calc Estimated GFR POC Glucose 94 Random Glucose Lactic Acid Calcium Phosphorus Magnesium Total Bilirubin Direct Bilirubin AST ALT Alkaline Phosphatase Troponin I High Sens B-Natriuretic Peptide Total Protein Albumin Urine Color Urine Appearance Urine pH Ur Specific [place] Urine Protein Urine Glucose (UA) Urine Ketones Urine Blood Urine Nitrite Ur Leukocyte Esterase Urine RBC Urine WBC Ur Squamous Epith Cells Urine Bacteria Urine Mucus Ethyl Alcohol Coronavirus (PCR) Influenza Type A (PCR) Influenza Type B (PCR) RSV RNA Qual (PCR) Blood Type Antibody Screen 06/17/20 06/17/20 07:53 07:54 WBC RBC Hgb Hct MCV MCH MCHC RDW Plt Count MPV Immature Gran % (Auto) Neut % (Auto) Lymph % (Auto) [place] % (Auto) Eos % (Auto) Baso % (Auto) Lymph # (Auto) [place] # (Auto) Eos # (Auto) Baso # (Auto) Abs Immat Gran (auto) Absolute Neuts (auto) Absolute Nucleated RBC Nucleated RBC % (auto) Smear Tech's Comments PT INR D-Dimer VBG pH VBG pCO2 VBG pO2 VBG HCO3 VBG O2 Saturation VBG Base Excess Sodium Potassium Chloride Carbon Dioxide Anion Gap BUN Creatinine Estim Creat Clear Calc Estimated GFR POC Glucose 105 Random Glucose Lactic Acid Calcium Phosphorus Magnesium Total Bilirubin Direct Bilirubin AST ALT Alkaline Phosphatase Troponin I High Sens B-Natriuretic Peptide Total Protein Albumin Urine Color Urine Appearance Urine pH Ur Specific [place] Urine Protein Urine Glucose (UA) Urine Ketones Urine Blood Urine Nitrite Ur Leukocyte Esterase Urine RBC Urine WBC Ur Squamous Epith Cells Urine Bacteria Urine Mucus Ethyl Alcohol Coronavirus (PCR) Influenza Type A (PCR) Influenza Type B (PCR) RSV RNA Qual (PCR) Blood Type AB Negative Antibody Screen NEGATIVE Progress Note: A&P Assessment and plan (1) Acute respiratory failure with hypoxia and hypercapnia: Status: Acute Assessment and Plan: Assessment: 64-year-old gentleman with underlying morbid obesity, AFib, congestive heart failure, NATI, diabetes mellitus admitted with progressive dyspnea secondary to acute exacerbation of underlying chronic congestive heart failure and coagulopathy. Plan: Neuro: No acute issues. Cardiac: Acute on chronic congestive heart failure improving with diuresis. 2D echocardiogram is pending. Underlying AFib, continue rate controlled, Coumadin held secondary to supratherapeutic INR. Pulmonary: Acute hypoxic and hypercapnic respiratory failure secondary to exacerbation of underlying congestive heart failure. Titrated off BiPAP. Underlying obstructive sleep apnea, continue with CPAP as needed for naps and at night. Renal: No acute issues. Endo: No acute issues. GI: No acute issues. ID: No acute issues Heme/Onc: Coagulopathy with elevated INR. Coumadin held. FFP and vitamin K given. Continue to monitor. Psych: No acute issues. Miscellaneous: No acute issues. Prophylaxis: INR is supratherapeutic Diet: Cardiac / diabetic Critical care time spent: 60 (2) Obstructive sleep apnea: Status: Acute (3) CHF (congestive heart failure): Status: Acute (4) Hypertension: Status: Acute (5) Morbid obesity: Status: Acute (6) Afib: Status: Acute (7) Diabetes: Status: Acute (8) Coagulopathy: Status: Acute Time Spent With Patient Total time spent with greater than 50% in coordination of care (as documented) at patient's floor/unit and/or counseling patient:: 0 Critical Care Time Critical Care Time (minutes): 60
[2020-06-17] MEDS: dilTIAZem HCL CD 240 MG CAP.ER.DEG PO (11:31)
[2020-06-17] MEDS: traMADoL HCL 50 MG TABLET PO ×2 (11:32→18:00)
[2020-06-17 12:24] LABS: Glucose, Whole Blood 105 mg/dL (60-115)
[2020-06-17 18:02] LABS: Glucose, Whole Blood 114 mg/dL (60-115)
[2020-06-17 19:17] LABS: Magnesium 1.5 mg/dL (1.6-2.6)
[2020-06-17 19:26] LABS: Anion Gap 13 (12-20); Blood Urea Nitrogen 15 mg/dL (9-16); Calcium 8.5 mg/dL (8.4-10.2); Carbon Dioxide 35 mmol/L (22-29); Chloride 93 mmol/L (96-108); Estimated Glomerular Filt Rate > 60; Glucose Random 104 mg/dL (60-115); Sodium 137 mmol/L (135-145)
[2020-06-17 23:47] LABS: Glucose, Whole Blood 107 mg/dL (60-115)
[2020-06-18] VITALS (12 sets, daily range): BP systolic 112–164; BP diastolic 65–93; PULSE 101–112; RESP 18–22; TEMP 36.1–36.9; O2SAT 93–95; BMI 63.9
[2020-06-18] MEDS: traMADoL HCL 50 MG TABLET PO ×2 (00:56→07:56)
[2020-06-18 05:51] LABS: Glucose, Whole Blood 92 mg/dL (60-115)
[2020-06-18 06:13] LABS: Basophils Percent Auto 0.4 % (0-2); Eosinophils Percent Auto 0.5 % (0-4); Hematocrit 38.5 % (42-52); Hemoglobin 12.7 g/dl (14.0-18.0); Imm Gran Abs Auto 0.03 X10*3/uL (0.00-0.03); Imm Gran Pct Auto 0.4 % (0.0-0.4); Lymphocytes Absolute Auto 0.7 X10*3/uL (1.2-4.9); Lymphocytes Percent Auto 8.3 % (20-40); MANUAL DIFF FLAG SCAN; Mean Corpuscular Hemoglobin 34.6 pg (27.0-33.0); Mean Corpuscular Volume 104.9 fL (80-98); Mean Platelet Volume 10.8 fL (9.4-12.4); Monocytes Absolute Auto 0.8 X10*3/uL (0.1-1.2); Monocytes Percent Auto 9.7 % (2-11); Neutrophils Absolute Auto 6.7 X10*3/uL (2.0-8.3); Neutrophils Percent Auto 80.7 % (45-73); Platelet Count 190 X10*3/uL (160-400); Red Blood Count 3.67 X10*6/uL (4.60-5.80); Red Cell Distribution Width 14.1 % (11.0-16.0); SCAN SMEAR FLAG 1; White Blood Count 8.3 X10*3/uL (4.8-10.8)
[2020-06-18 06:16] LABS: Venous Blood Gas Refer to POC result
[2020-06-18 06:17] LABS: VBG Base Excess 17.6 mmol/L; VBG HCO3 42 mmol/L (22-26); VBG pCO2 50 mmHg; VBG pH 7.53 (7.32-7.43); VBG pO2 72 mmHg
[2020-06-18 06:38] LABS: SLIDE REVIEW VERIFIED
[2020-06-18 06:46] LABS: Albumin Level 3.1 g/dL (3.5-5.0); Anion Gap 15 (12-20); Blood Urea Nitrogen 14 mg/dL (9-16); Calcium 8.3 mg/dL (8.4-10.2); Carbon Dioxide 36 mmol/L (22-29); Chloride 92 mmol/L (96-108); Creatinine Clr Calc Pharmacy 190.8; Estimated Glomerular Filt Rate > 60; Glucose Random 100 mg/dL (60-115); Magnesium 1.4 mg/dL (1.6-2.6); Phosphorus 2.9 mg/dL (2.7-4.5); Potassium 4.6 mmol/L (3.3-5.1); Sodium 138 mmol/L (135-145)
[2020-06-18] MEDS: dilTIAZem HCL CD 240 MG CAP.ER.DEG PO (07:50)
[2020-06-18] MEDS: Magnesium Sulfate/H2O 2 GM/50 ML PIGGYBACK IV (07:50)
[2020-06-18] MEDS: oxyCODONE HCl ER 10 MG TAB.ER.12H 20 MG PO ×2 (09:27→21:01)
[2020-06-18 09:30] LABS: INTERNATIONAL NORM RATIO 1.4 (0.9-1.1); Prothrombin Time 16.8 SEC (10.8-13.0)
[2020-06-18] MEDS: Nystatin Powder 15 GM BOTTLE 1 APPL TOPICAL ×2 (10:08→21:02)
--- NOTE | 2020-06-18 10:55 | P.CONCA_ITS ---
History of Present Illness History of Present Illness Date of Service: 06/18/20 Requesting physician: Juan J Gruber Consult reason: atrial fibrillation and congestive heart failure Chief complaint: acute hypercapnic respiratory failure Narrative: Thank you for inviting us in consult on Juan for congestive heart failure and atrial fibrillation. He is a pleasant 64-year-old man who was brought into the hospital 2 days ago with respiratory failure both hypoxic and hypercapnic with decompensated congestive heart failure. He was then admitted to ICU treated with BiPAP and diuresed and has diuresed about 8 L since admission with improving clinical status. He was then transferred to cardiac floor yesterday for further management. Remains on IV Lasix drip at 5 mg an hour diuresing adequately. Remains in atrial fibrillation with slightly rapid ventricular response. He continues to be short of breath but denies any shortness of breath. He says he has been short of breath for many years with minimal exertion. He is minimally functional at home especially in the last 3 weeks not been able to walk too much because of significant weight gain of about 60 lb in the last 5 months. He has had significantly worsening leg edema over the last few months progressing to his presentation. He says recently his OxyContin was switched to another medication and after starting this medications he started having hallucinations and altered mental status and was therefore brought to the emergency room. Currently hemodynamically stable. He says that he has had atrial fibrillation since 1986 and had initially tried cardioversion but this has failed. He has been morbidly obese all his life. He says he has not been diagnosed with sleep apnea. He has had prior history of congestive heart failure on 20 mg of Lasix. He is chronically anticoagulated with warfarin, he said this has been very difficult to manage as outpatient with mu ltiple testing and labile INRs Review of Systems 2 Constitutional: Constitutional: Denies body ache(s), Denies chills, Reports daytime sleepiness, Reports fatigue, Denies fever(s) and Reports lethargy Cardiovascular: Cardiovascular: Reports Abdominal Distension, Denies chest pain, Reports leg edema, Denies lightheadedness, Denies Loss of Consciousness, Denies palpitations, Reports dyspnea on exertion and Denies orthopnea Respiratory: Respiratory: Denies chest congestion and Reports dyspnea on exertion Gastrointestinal: Gastrointestinal: Reports no additional gastrointestinal complaints Genitourinary: Genitourinary: Reports no additional male genitourinary complaints Musculoskeletal: Musculoskeletal: Reports no additional musculoskeletal complaints Neurologic: Reports system reviewed and no additional complaints, except as documented Psychiatric: Psychiatric: Reports no additional psychiatric complaints Endocrine: Endocrine: Reports no additional endocrine complaints, Reports fatigue and Denies palpitations Hematologic/Lymphatic: Hematologic/Lymphatic: Reports no additional hematologic/lymphatic complaints [facility] Past Medical History Medical History Afib Back pain with history of spinal surgery CHF (congestive heart failure) Diabetes History of gout HTN (hypertension) Hypercholesterolemia Knee osteoarthritis Morbid obesity Peripheral neuropathy Social History Social History Household Members: Significant Other Household Members Other:: girl friend Unable to assess alcohol history related to: Unable to respond Alcohol intake: current Alcohol intake frequency: 3 or more drinks per day Smoking Status: Never smoker Use of substances other than those prescribed or required for medical reasons: Unable to respond Currently Displaying Signs/Symptoms of Drug Intoxication Withdrawal: No Advance Directives: No Advance Directives Information Provided: No Do you have thoughts of harming others: None Do you have a plan to hurt others: No Plan Recently lost weight without trying: Unsure service: No Current occupational status: disabled Meds Allergies Allergy/AdvReac Type Severity Reaction Status Date / Time codeine [Codeine] Allergy Intermediate RASH Verified 06/16/20 11:48 Active Medications: Current Medications Generic Name Dose Route Start Last Admin Trade Name Freq PRN Reason Stop Dose Admin Diltiazem HCl 240 mg 06/17/20 11:20 06/18/20 07:50 Diltiazem Hcl Cd 240 Mg Cap.Er.Deg PO 240 mg DAILY MARIANELA Administration Protocol Furosemide 500 mg/ IV 50 mls @ 0.5 mls/hr 06/16/20 15:30 06/17/20 16:40 Miscellaneous Supplies IVCONT Not Given .Q24H MARIANELA 5 MG/HR Insulin Human Lispro 0 unit 06/16/20 18:00 06/18/20 05:48 Insulin Lispro 100 Unit/Ml 3 Ml Vial SUBCUT Not Given Q6H MARIANELA Protocol Nystatin 1 appl 06/16/20 21:00 06/18/20 10:08 Nystatin Powder 15 Gm Bottle TOPICAL 1 appl BID MARIANELA Administration Protocol Ondansetron HCl 4 mg 06/16/20 15:21 Ondansetron Hcl 4 Mg/2 Ml Vial IVPUSH Q8H PRN Nausea Oxycodone HCl 20 mg 06/18/20 09:00 06/18/20 09:27 Oxycodone Hcl Er 10 Mg Tab.Er.12h PO 20 mg BID MARIANELA Administration Oxycodone HCl 10 mg 06/18/20 08:53 Oxycodone Hcl Immed Release 5 Mg Tablet PO Q6H PRN breakthrough pain Pharmacy Consult 1 each 06/16/20 14:54 Consult Rx Perform Med Rec MISCELLANE ONCE PRN Consult order Tramadol HCl 50 mg 06/17/20 11:07 06/18/20 07:56 Tramadol Hcl 50 Mg Tablet PO 50 mg Q6H PRN Administration Pain, Moderate (Pain Scale 4-6 Home Medications Medication Instructions Recorded Confirmed Last Taken Type allopurinol 1 tab PO DAILY 06/16/20 06/16/20 Unknown History diltiazem HCl 180 mg PO BID 06/16/20 06/16/20 Unknown History furosemide 1 tab PO DAILY 06/16/20 06/16/20 Unknown History lisinopril 1 tab PO DAILY 06/16/20 06/16/20 Unknown History lorazepam 1 tab PO TID PRN 06/16/20 06/16/20 Unknown History metformin 1 tab PO BID 06/16/20 06/16/20 Unknown History metoprolol tartrate 1 tab PO BID 06/16/20 06/16/20 Unknown History oxycodone 5 tab PO NEEDED 06/16/20 06/16/20 Unknown History oxycodone [OxyContin] 1 tab PO BID 06/16/20 06/16/20 Unknown History oxycodone myristate [Xtampza ER] 1 cap PO BID 06/16/20 06/16/20 Unknown History simvastatin 1 tab PO BEDTIME 06/16/20 06/16/20 Unknown History warfarin 1 tab PO BEDTIME 06/16/20 06/16/20 Unknown History warfarin 2 mg PO BEDTIME 06/16/20 06/16/20 Unknown History Physical Exam Vital Signs: Vital Signs: Last Vital Signs Temp 98 F 06/18/20 07:04 Pulse 101 H 06/18/20 07:50 Resp 22 H 06/18/20 07:04 BP 143/85 H 06/18/20 07:50 Pulse Ox 95 06/18/20 07:04 Body Mass Index 63.9 Const: General: cooperative, alert, awake and acute distress mild and respiratory Nutritional Appearance: obese morbidly obese Orientation/ consciousness: patient oriented x3 HENMT: Head: Yes normocephalic and Yes atraumatic Neck: Neck: Yes trachea midline, Yes supple and Yes JVD (Difficult to evaluate but appears to the angle of jaw) Chest: Chest palpation & inspection: normal inspection of the chest Resp: Effort & Inspection: decreased respiratory effort and other (Limited evaluation patient could not sit up in bed, no rales or wheezing an) Cardio: Jugular venous distension: JVD Rate: tachycardic Rhythm: abnormal rhythm irregularly irregular Heart sounds: S1 normal heart sound present and S2 normal heart sound present GI: Inspection: Yes distended and Yes other (Abdominal wall edema) Auscultation: normal bowel sounds Skin: General skin exam: no rashes or lesions noted Neuro: General: patient oriented x3 Extrem: General: Yes edema (Significant bilateral edema) and Yes venous stasis dermatitis Psych: Appearance: grossly normal Results Labs and Meds Result diagrams: 06/18/20 06:05 06/18/20 06:05 Lab results: Laboratory Results - last 24 hr 06/17/20 06/17/20 06/17/20 07:54 12:19 17:58 WBC RBC Hgb Hct MCV MCH MCHC RDW Plt Count MPV Immature Gran % (Auto) Neut % (Auto) Lymph % (Auto) [place] % (Auto) Eos % (Auto) Baso % (Auto) Lymph # (Auto) [place] # (Auto) Eos # (Auto) Baso # (Auto) Abs Immat Gran (auto) Absolute Neuts (auto) Absolute Nucleated RBC Nucleated RBC % (auto) Smear Tech's Comments PT INR VBG pH VBG pCO2 VBG pO2 VBG HCO3 VBG O2 Saturation VBG Base Excess Sodium Potassium Chloride Carbon Dioxide Anion Gap BUN Creatinine Estim Creat Clear Calc Estimated GFR POC Glucose 105 114 Random Glucose Calcium Phosphorus Magnesium Albumin Blood Type AB Negative Antibody Screen NEGATIVE 06/17/20 06/17/20 06/18/20 18:25 23:42 05:47 WBC RBC Hgb Hct MCV MCH MCHC RDW Plt Count MPV Immature Gran % (Auto) Neut % (Auto) Lymph % (Auto) [place] % (Auto) Eos % (Auto) Baso % (Auto) Lymph # (Auto) [place] # (Auto) Eos # (Auto) Baso # (Auto) Abs Immat Gran (auto) Absolute Neuts (auto) Absolute Nucleated RBC Nucleated RBC % (auto) Smear Tech's Comments PT INR VBG pH VBG pCO2 VBG pO2 VBG HCO3 VBG O2 Saturation VBG Base Excess Sodium 137 Potassium 4.0 Chloride 93 L Carbon Dioxide 35 H Anion Gap 13 BUN 15 Creatinine 0.77 Estim Creat Clear Calc 186.0 Estimated GFR > 60 POC Glucose 107 92 Random Glucose 104 Calcium 8.5 Phosphorus Magnesium 1.5 L Albumin Blood Type Antibody Screen 06/18/20 06/18/20 06/18/20 06:05 06:05 06:11 WBC 8.3 RBC 3.67 L Hgb 12.7 L Hct 38.5 L MCV 104.9 H MCH 34.6 H MCHC 33.0 RDW 14.1 Plt Count 190 MPV 10.8 Immature Gran % (Auto) 0.4 Neut % (Auto) 80.7 H Lymph % (Auto) 8.3 L [place] % (Auto) 9.7 Eos % (Auto) 0.5 Baso % (Auto) 0.4 Lymph # (Auto) 0.7 L [place] # (Auto) 0.8 Eos # (Auto) 0.0 Baso # (Auto) 0.0 Abs Immat Gran (auto) 0.03 Absolute Neuts (auto) 6.7 Absolute Nucleated RBC 0.000 Nucleated RBC % (auto) 0.0 Smear Tech's Comments VERIFIED PT INR VBG pH 7.53 H VBG pCO2 50 VBG pO2 72 VBG HCO3 42 H VBG O2 Saturation 94.0 VBG Base Excess 17.6 Sodium 138 Potassium 4.6 Chloride 92 L Carbon Dioxide 36 H Anion Gap 15 BUN 14 Creatinine 0.74 Estim Creat Clear Calc 190.8 Estimated GFR > 60 POC Glucose Random Glucose 100 Calcium 8.3 L Phosphorus 2.9 Magnesium 1.4 L* Albumin 3.1 L Blood Type Antibody Screen 06/18/20 09:08 WBC RBC Hgb Hct MCV MCH MCHC RDW Plt Count MPV Immature Gran % (Auto) Neut % (Auto) Lymph % (Auto) [place] % (Auto) Eos % (Auto) Baso % (Auto) Lymph # (Auto) [place] # (Auto) Eos # (Auto) Baso # (Auto) Abs Immat Gran (auto) Absolute Neuts (auto) Absolute Nucleated RBC Nucleated RBC % (auto) Smear Tech's Comments PT 16.8 H D INR 1.4 H VBG pH VBG pCO2 VBG pO2 VBG HCO3 VBG O2 Saturation VBG Base Excess Sodium Potassium Chloride Carbon Dioxide Anion Gap BUN Creatinine Estim Creat Clear Calc Estimated GFR POC Glucose Random Glucose Calcium Phosphorus Magnesium Albumin Blood Type Antibody Screen Assessment and Plan (1) CHF (congestive heart failure): Qualifiers: Heart failure type: other Qualified Code(s): I50.9 - Heart failure, unspecified Status: Acute Decompensated congestive heart failure gradually progressive with about 60 lb weight gain over the last 5 months most likely fluid gain as per the patient has responded well to IV Lasix drip and has diuresed about 8 L over the last 2 days. Predominant heart failure is right-sided which is not surprising given his significant Pickwickian body habitus as well as chronic atrial fibrillation likelihood of underlying sleep apnea, highly likely that he has significant RV enlargement and dysfunction as well as possibly secondary tricuspid regurgitation with biatrial enlargement. He remains significantly fluid overloaded at current time. Will continue IV Lasix drip at 5 mg an hour. CHF education should be provided. Strict intake and output chart along with daily weights should be pursued. Please get him out of bed to chair if possible if not physical therapy consult will need to be obtained eventually once his fluid status has improved. Given his significant heart failure syndrome, would add Aldactone 25 mg to his regimen which has shown with some benefit in patients with diastolic heart failure. Echocardiogram with definity will need to be obtained later today. Will need workup for sleep apnea and most likely require CPAP/BiPAP therapy as outpatient. Also with recent data I think he would benefit with Jardiance therapy at 10 mg as a diuretic agent and to avoid hospitalization future. Management of heart failure was discussed with patient detail as he shows some understanding. Please provide him with educational material. (2) Respiratory failure: Status: Acute Respiratory failure most likely due to underlying significant pulmonary restrictive disorder related to significant obesity. He most likely has underlying Pickwickian syndrome and with chronic cor pulmonale with right-sided heart failure. Would require eventually CPAP BiPAP therapy for significant slee p apnea. Management from pulmonary perspective. In the long run would benefit from significant weight loss. (3) Afib: Status: Acute Atrial fibrillation which is chronic and as per him since 1986. Unlikely to have rhythm control approach in this gentleman. Better rate control should be pursued. His rate is slightly elevated current point in time would consider digitalization with digoxin 0.25 mg IV q.6 x3 doses. Gradually uptitrate metoprolol therapy. He has had been on warfarin for many years and has had labile INRs. Switch him to direct oral anticoagulant with Xarelto 20 mg daily for more predictable oral anticoagulation. This was discussed with him. He is agreeable. Will follow with the patient.
--- NOTE | 2020-06-18 11:00 | P.CDIC_ITS ---
CDI Concurrent Query Service Date: 08/04/20 Documentation Clarification: Please clarify if you are treating a proba ble/suspected/likely or confirmed: Acute on Chronic Diastolic CHF Acute on Chronic Systolic CHF Acute on Chronic Diastolic and Systolic CHF Provider Response: Acute on Chronic Diastolic and/or Systolic CHF PLEASE DO NOT DELETE/MODIFY EXISTING CONTENT Additional information is needed in order to code to the highest accuracy and appropriate Severity of Illness (SOI). Please clarify the information noted below in your progress notes and discharge summary. Risk Factors/Clinical Indicators/Treatments 64 year old male admitted with upper respiratory symptoms, shortness of breath SAT 70s. PMH: CHF, Atrial Fibrillation, DM, Morbid Obesity, HTN CXR: CHF with cardiomegaly Treated with BiPAP, CPAP, Lasix drip Elevated INR ECHO pending CDS: Dee Wilkinson RN Contact Number: [phone] Please Review the information above and exercise your independent professional judgment in responding to the query. If you concur, pleas document in the PROGRESS NOTES and DISCHARGE SUMMARY. If you do not agree with the query, please document in the query above. THIS QUERY IS PART OF THE PERMANENT MEDICAL RECORD
--- NOTE | 2020-06-18 11:11 | CA_ITS ---
Transthoracic Echocardiogram Patient (Last, First, Middle): Juan Chester M Gender: Male Date of : 1955 Age: 64 Procedure Date: 06/18/2020 Procedure Type: Transthoracic Echocardiogram [place] [facility] [place]: 182.88 cm Weight: 183.71 kg BSA: 2.88 m2 Heart Rate: bpm BP: 118 / 60 mmHg Wet Pour Mixer: Referring MD: Aguila Hinton MD [employer] Room Servicer: Carl Gorman MD Symptoms: DOCKERY Study Quality: Technically Difficult due to obesity ECG Rhythm: Atrial Fibrillation Conclusions: - 1. Technically extremely limited study despite use of definity due to body habitus and off axis views 2. LV systolic function appears marginally depressed with LVEF of 45-50%, diastolic function is not well characterized 3. Limited evaluation of remainder of the cardiac chambers especially right sided chambers. 4. Severely dilated left atrium 5. Limited evaluation of cardiac valves 6. Significantly elevated right atrial pressures as noted by significantly dilated IVC with no collapse Findings Procedure Information Contrast agent, definity, is being given per protocol without apparent complications. Left Ventricle The left ventricle was not well visualized. The visually estimated ejection fraction is between 45-50%. Diastolic function is indeterminate on the basis of available data. Right Ventricle The right ventricle was not well visualized. Atria The left atrium is severely dilated. Interatrial shunt cannot be excluded. The right atrium was not well visualized. Aortic Valve The aortic valve was not well visualized. There is no aortic valve stenosis. There is no aortic valve regurgitation. Mitral Valve The mitral valve was not well visualized. There is no mitral valve regurgitation. There is no mitral valve stenosis. Pulmonic Valve The pulmonic valve was not well visualized. Tricuspid Valve The tricuspid valve was not well visualized. Significantly elevated right atrial pressure. Great Vessels The aorta was not well visualized. The pulmonary artery was not well visualized. Venous The inferior vena cava is severely dilated and does not collapse with inspiration. Pericardium/Pleural The pericardium was not well visualized. Prior Study Comparison No prior study available for comparison. Measurements 2D Linear Measurements IVSd: 1.52 0.6-0.9/0.6-1.0 cm LVIDd: 5.49 3.9-5.3/4.2-5.9 cm LVIDd Index: 1.91 2.4-3.2/2.2-3.1 cm/m2 LVIDs: 4.15 2.0-3.6 cm LVPWd: 1.43 0.7-1.1 cm Ao Root: 3.50 2.1-3.5 cm LA Diam: 6.40 2.7-3.8/3.0-4.0 cm LAIDs Index: 2.22 1.5-2.3 cm/m2 LV Mass: 453.17 67-162/88-224 g LV Mass Index: 157.35 43-95/49-115 g/m2 LVOT Diam: 2.10 3.0+(-)1.3 cm Mitral Valve MV Pk E: 0.66 MV Decel Time: 180.00 E'Medial: 7.64 E/E' Med: 8.60 PHT: 53.00 MVA PHT: 4.15 Decel Williams: 3.66 Aortic Valve AoV Pk Nils: 1.44 AoV Mn Nils: 0.91 AoV VTI: 0.25 AoV Pk Grad: 8.00 Aov Mn Grad: 4.00 LIZ Cont.VTI: 1.72 LVOT LVOT Pk Nils: 0.66 LVOT Mn Nils: 0.45 LVOT VTI: 0.12 LVOT Pk Grad: 2.00 LVOT Mn Grad: 1.00 LVOT Diam: 2.10 LVOT Area: 3.46 Diastolic Function MV Pk E: 0.66 E'Medial: 7.64 E/E' Med: 8.60 Tricuspid Valve TR Pk Nils: 1.62 TR Pk Grad: 10.00 Great Vessels Aorta Ao Root-2D: 3.50 2.0-3.7 cm Pulmonary Valve PV Pk Nils: 0.98 Peak PV Grad: 4.00 Updated in Other Vendor System with Status of Final Carl Gorman MD electronically signed on 06/18/2020 1:52:34 PM with status of Final
[2020-06-18 11:33] LABS: Glucose, Whole Blood 108 mg/dL (60-115)
--- NOTE | 2020-06-18 11:36 | MHC.CM.PN ---
Per ROUNDS discussion, Patient is not yet medically cleared for dc (IV Digoxin, IV Lasix). The goal for dc is to return home, and CM will continue to follow for possible need to adjust the dc plan.
[2020-06-18] MEDS: Digoxin 0.5 MG/2 ML AMPUL 0.25 MG IVPUSH ×3 (12:08→23:16)
[2020-06-18] MEDS: Rivaroxaban 20 MG TABLET PO (12:08)
[2020-06-18] MEDS: Spironolactone 25 MG TABLET PO (12:09)
[2020-06-18] MEDS: Furosemide 500 MG in Container,Empty 0 ML IVCONT (16:23)
--- NOTE | 2020-06-18 16:23 | HO.PM.IMPN ---
Subjective Subjective Date of Service: 06/18/20 Interval History: stepped down from ICU to [facility] yesterday breathing improved remains on furosemide gtt and -8L this admission so far no chest pain significant edema Physical Exam Vital Signs: Vital Signs: Last Vital Signs Temp 97.7 F 06/18/20 15:50 Pulse 108 H 06/18/20 15:50 Resp 20 06/18/20 15:50 BP 112/80 06/18/20 15:50 Pulse Ox 93 06/18/20 15:50 Body Mass Index 63.9 Gen: mild respiratory distress HEENT: sclera anicteric, moist mucus membranes Neck: supple Lungs: diminished air entry at bases bilaterally Heart: irregular, distant heart sounds due to body habitus Abd: morbidly obese Ext: 3+ bilateral lower extremity edema Skin: warm/well-perfused, chronic venous stasis dermatitis Neuro: alert and oriented x3, no focal findings Psych: appropriate affect Objective Data Current Medications Generic Name Dose Route Start Last Admin Trade Name Freq PRN Reason Stop Dose Admin Digoxin 0.25 mg 06/18/20 11:15 06/18/20 12:08 Digoxin 0.5 Mg/2 Ml Ampul IVPUSH 06/18/20 23:16 0.25 mg Q6H MARIANELA Administration Diltiazem HCl 240 mg 06/17/20 11:20 06/18/20 07:50 Diltiazem Hcl Cd 240 Mg Cap.Er.Deg PO 240 mg DAILY MARIANELA Administration Protocol Furosemide 500 mg/ IV 50 mls @ 0.5 mls/hr 06/16/20 15:30 06/17/20 16:40 Miscellaneous Supplies IVCONT Not Given .Q24H MARIANELA 5 MG/HR Insulin Human Lispro 0 unit 06/16/20 18:00 06/18/20 12:16 Insulin Lispro 100 Unit/Ml 3 Ml Vial SUBCUT Not Given Q6H MARIANELA Protocol Nystatin 1 appl 06/16/20 21:00 06/18/20 10:08 Nystatin Powder 15 Gm Bottle TOPICAL 1 appl BID MARIANELA Administration Protocol Ondansetron HCl 4 mg 06/16/20 15:21 Ondansetron Hcl 4 Mg/2 Ml Vial IVPUSH Q8H PRN Nausea Oxycodone HCl 20 mg 06/18/20 09:00 06/18/20 09:27 Oxycodone Hcl Er 10 Mg Tab.Er.12h PO 20 mg BID MARIANELA Administration Oxycodone HCl 10 mg 06/18/20 08:53 Oxycodone Hcl Immed Release 5 Mg Tablet PO Q6H PRN breakthrough pain Pharmacy Consult 1 each 06/16/20 14:54 Consult Rx Perform Med Rec MISCELLANE ONCE PRN Consult order Rivaroxaban 20 mg 06/18/20 11:15 06/18/20 12:08 Rivaroxaban 20 Mg Tablet PO 20 mg DAILY MARIANELA Administration Spironolactone 25 mg 06/18/20 11:15 06/18/20 12:09 Spironolactone 25 Mg Tablet PO 25 mg DAILY MARIANELA Administration Protocol Tramadol HCl 50 mg 06/17/20 11:07 06/18/20 07:56 Tramadol Hcl 50 Mg Tablet PO 50 mg Q6H PRN Administration Pain, Moderate (Pain Scale 4-6 Labs CBC & Chem 7: 06/18/20 06:05 06/18/20 06:05 Labs: Laboratory Results - last 24 hr 06/17/20 06/17/20 06/17/20 07:54 17:58 18:25 WBC RBC Hgb Hct MCV MCH MCHC RDW Plt Count MPV Immature Gran % (Auto) Neut % (Auto) Lymph % (Auto) [place] % (Auto) Eos % (Auto) Baso % (Auto) Lymph # (Auto) [place] # (Auto) Eos # (Auto) Baso # (Auto) Abs Immat Gran (auto) Absolute Neuts (auto) Absolute Nucleated RBC Nucleated RBC % (auto) Smear Tech's Comments PT INR VBG pH VBG pCO2 VBG pO2 VBG HCO3 VBG O2 Saturation VBG Base Excess Sodium 137 Potassium 4.0 Chloride 93 L Carbon Dioxide 35 H Anion Gap 13 BUN 15 Creatinine 0.77 Estim Creat Clear Calc 186.0 Estimated GFR > 60 POC Glucose 114 Random Glucose 104 Calcium 8.5 Phosphorus Magnesium 1.5 L Albumin Blood Type AB Negative Antibody Screen NEGATIVE 06/17/20 06/18/20 06/18/20 23:42 05:47 06:05 WBC 8.3 RBC 3.67 L Hgb 12.7 L Hct 38.5 L MCV 104.9 H MCH 34.6 H MCHC 33.0 RDW 14.1 Plt Count 190 MPV 10.8 Immature Gran % (Auto) 0.4 Neut % (Auto) 80.7 H Lymph % (Auto) 8.3 L [place] % (Auto) 9.7 Eos % (Auto) 0.5 Baso % (Auto) 0.4 Lymph # (Auto) 0.7 L [place] # (Auto) 0.8 Eos # (Auto) 0.0 Baso # (Auto) 0.0 Abs Immat Gran (auto) 0.03 Absolute Neuts (auto) 6.7 Absolute Nucleated RBC 0.000 Nucleated RBC % (auto) 0.0 Smear Tech's Comments VERIFIED PT INR VBG pH VBG pCO2 VBG pO2 VBG HCO3 VBG O2 Saturation VBG Base Excess Sodium Potassium Chloride Carbon Dioxide Anion Gap BUN Creatinine Estim Creat Clear Calc Estimated GFR POC Glucose 107 92 Random Glucose Calcium Phosphorus Magnesium Albumin Blood Type Antibody Screen 06/18/20 06/18/20 06/18/20 06:05 06:11 09:08 WBC RBC Hgb Hct MCV MCH MCHC RDW Plt Count MPV Immature Gran % (Auto) Neut % (Auto) Lymph % (Auto) [place] % (Auto) Eos % (Auto) Baso % (Auto) Lymph # (Auto) [place] # (Auto) Eos # (Auto) Baso # (Auto) Abs Immat Gran (auto) Absolute Neuts (auto) Absolute Nucleated RBC Nucleated RBC % (auto) Smear Tech's Comments PT 16.8 H D INR 1.4 H VBG pH 7.53 H VBG pCO2 50 VBG pO2 72 VBG HCO3 42 H VBG O2 Saturation 94.0 VBG Base Excess 17.6 Sodium 138 Potassium 4.6 Chloride 92 L Carbon Dioxide 36 H Anion Gap 15 BUN 14 Creatinine 0.74 Estim Creat Clear Calc 190.8 Estimated GFR > 60 POC Glucose Random Glucose 100 Calcium 8.3 L Phosphorus 2.9 Magnesium 1.4 L* Albumin 3.1 L Blood Type Antibody Screen 06/18/20 11:00 WBC RBC Hgb Hct MCV MCH MCHC RDW Plt Count MPV Immature Gran % (Auto) Neut % (Auto) Lymph % (Auto) [place] % (Auto) Eos % (Auto) Baso % (Auto) Lymph # (Auto) [place] # (Auto) Eos # (Auto) Baso # (Auto) Abs Immat Gran (auto) Absolute Neuts (auto) Absolute Nucleated RBC Nucleated RBC % (auto) Smear Tech's Comments PT INR VBG pH VBG pCO2 VBG pO2 VBG HCO3 VBG O2 Saturation VBG Base Excess Sodium Potassium Chloride Carbon Dioxide Anion Gap BUN Creatinine Estim Creat Clear Calc Estimated GFR POC Glucose 108 Random Glucose Calcium Phosphorus Magnesium Albumin Blood Type Antibody Screen Microbiology Microbiology Results: Microbiology 06/16/20 14:30 Blood - Venous Blood Culture - Preliminary No growth after 24 hours. 06/16/20 14:15 Blood - Venous Blood Culture - Preliminary No growth after 24 hours. Assessment and Plan (1) Acute respiratory failure with hypoxia and hypercapnia: Status: Acute (2) Afib: Status: Acute (3) CHF (congestive heart failure): Status: Acute Assessment and Plan: hospital d#3 64yo M with CHF, AF, morbid obesity, DM, HTN, peripheral neuropathy, chronic back pain admitted to ICU with acute hypercapneic respiratory failure and acute decompensated HF, placed on BiPAP + furosemide gtt [place] [facility] [place] # ADHF - TTE today. 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 continue BiPAP at night, will need outpt sleep study # morbid obesity - consider outpt bariatrics evaluation # hypoMg - replete # gout - continue allopurinol # DM2 - correction-dose lispro, check A1c # VTE ppx - rivaroxaban # dispo - PT eval
[2020-06-18 16:36] LABS: Glucose, Whole Blood 90 mg/dL (60-115)
[2020-06-18] MEDS: oxyCODONE HCl Immed Release 5 MG TABLET 10 MG PO (18:01)
--- NOTE | 2020-06-18 18:32 | PC.NURSE ---
Patient complaining of 15/10 pain to his right lower extremity this morning; hospitalist notified, Oxycodone ordered to reflect baseline medication use at home. Patient reports relief with oxycodone, about a 9/10 pain level, which is acceptable to the patient. Bariatric bed supplied to patient to increase comfort so that patient may roll more freely. Patient in a-fib with pulse in the 110s-120s. Patient had de-sat episode while sleeping while on 2L of O2; O2 as low as 83%; patient awoken, patient reported no distress, and encouraged to deep breathe; O2 SAT back to 93%. No further issues.
[2020-06-18] MEDS: Atorvastatin Calcium 20 MG TABLET PO (21:01)
[2020-06-18 21:17] LABS: Glucose, Whole Blood 119 mg/dL (60-115)
[2020-06-18 23:25] LABS: Glucose, Whole Blood 98 mg/dL (60-115)
[2020-06-19] VITALS (13 sets, daily range): BP systolic 107–174; BP diastolic 62–96; PULSE 80–106; RESP 17–24; TEMP 36.2–36.8; O2SAT 93–98; BMI 67.8
[2020-06-19 05:22] LABS: Glucose, Whole Blood 110 mg/dL (60-115)
[2020-06-19 07:54] LABS: B Type Natriuretic Peptide 281 pg/mL (<100)
[2020-06-19 08:03] LABS: Estimated Average Glucose 126 mg/dL
[2020-06-19] MEDS: Rivaroxaban 20 MG TABLET PO (08:12)
[2020-06-19] MEDS: lisinopriL 5 MG TABLET PO (08:12)
[2020-06-19] MEDS: Nystatin Powder 15 GM BOTTLE 1 APPL TOPICAL ×2 (08:13→21:46)
[2020-06-19] MEDS: Spironolactone 25 MG TABLET PO (08:13)
[2020-06-19] MEDS: oxyCODONE HCl ER 10 MG TAB.ER.12H 20 MG PO ×2 (08:13→21:45)
[2020-06-19] MEDS: allopurinoL 300 MG TABLET PO (08:13)
[2020-06-19] MEDS: Metoprolol Tartrate 25 MG TABLET PO ×4 (08:13→21:41)
[2020-06-19 08:24] LABS: Anion Gap 15 (12-20); Blood Urea Nitrogen 14 mg/dL (9-16); Calcium 8.5 mg/dL (8.4-10.2); Carbon Dioxide 41 mmol/L (22-29); Chloride 89 mmol/L (96-108); Creatinine Clr Calc Pharmacy 176.9; Estimated Glomerular Filt Rate > 60; Glucose Random 89 mg/dL (60-115); Magnesium 1.2 mg/dL (1.6-2.6); Potassium 3.9 mmol/L (3.3-5.1); Sodium 141 mmol/L (135-145)
--- NOTE | 2020-06-19 08:57 | PM.PNCARD ---
Subjective Subjective Date of Service: 06/19/20 <AUGUSTINE Monroe - Last Filed: 06/19/20 16:11> 06/19/20 <Carl Gorman MD - Last Filed: 06/19/20 16:17> Principal diagnosis: CHF, Resp failure, chronic afib, HTN, orbid obesity <AUGUSTINE Monroe - Last Filed: 06/19/20 16:11> Interval history: Cardiology follow up for the above. Seen at 0850. Today he reports that breathing is comfortable at rest, wearing O2 cannula. Has sob with activity. Did not wear CPAP during night. Says he slept well. Feels his abdomen and legs are still swollen. No chest pains, no palpitation. Not lightheaded with standing. Has been up to commode during night. Joaquin cath in place. at bedside this am. <AUGUSTINE Monroe - Last Filed: 06/19/20 16:11> Review of Systems Review of Systems as above <AUGUSTINE Monroe - Last Filed: 06/19/20 16:11> Yes all other systems are reviewed and are negative <AUGUSTINE Monroe - Last Filed: 06/19/20 16:11> Physical Exam Vital Signs: Last Vital Signs Temp 98.3 F 06/19/20 07:15 Pulse 106 H 06/19/20 08:13 Resp 24 H 06/19/20 07:15 BP 174/86 H 06/19/20 08:13 Pulse Ox 97 06/19/20 07:15 Body Mass Index 67.8 <AUGUSTINE Monroe - Last Filed: 06/19/20 16:11> Const General: cooperative, no acute distress, alert and awake <AUGUSTINE Monroe - Last Filed: 06/19/20 16:11> Orientation/consciousness: patient oriented x3 <AUGUSTINE Monroe - Last Filed: 06/19/20 16:11> Neck Neck: Yes normal visual inspection and Yes no JVD <AUGUSTINE Monroe - Last Filed: 06/19/20 16:11> Resp Other: Lungs with scattered rales and expiratory wheezes noted posteriorly. Sat 97% on 2 liters. <Bell Martinez ZHAO Barr-C - Last Filed: 06/19/20 16:11> Effort & Inspection: normal respiratory effort, able to speak in complete sentences and not labored <Bell BarrZHAO-C - Last Filed: 06/19/20 16:11> Auscultation: no rhonchi <Bell MomoZHAO-C - Last Filed: 06/19/20 16:11> Cardio Other: Heart tones irregularly irregular, no murmur noted, rate elevated <Bell MomoZHAO-C - Last Filed: 06/19/20 16:11> Rate: regular rate <Bell MomoZHAO-C - Last Filed: 06/19/20 16:11> Heart sounds: S1 normal heart sound present and S2 normal heart sound present <Bell MomoZHOA-C - Last Filed: 06/19/20 16:11> GI Other: Morbidly obese abdomen, round, firm <Bell ZHAO Barr-C - Last Filed: 06/19/20 16:11> Neuro General: patient oriented x3 <Bell ZHAO Barr-C - Last Filed: 06/19/20 16:11> Extrem Other: Lower extremties with mildly pitting edema, venous stasis changes noted to skin color <Bell Martinez ZHAO Barr-C - Last Filed: 06/19/20 16:11> Results Labs and Meds Result diagrams: : 06/18/20 06:05 06/19/20 06:00 <Bell Martinez ZHAO Barr-C - Last Filed: 06/19/20 16:11> Lab results: Laboratory Results - last 24 hr 06/18/20 06/18/20 06/18/20 09:08 11:00 16:26 PT 16.8 H D INR 1.4 H Sodium Potassium Chloride Carbon Dioxide Anion Gap BUN Creatinine Estim Creat Clear Calc Estimated GFR POC Glucose 108 90 Random Glucose Estimat Average Glucose Hemoglobin A1c % Calcium Magnesium B-Natriuretic Peptide 06/18/20 06/18/20 06/19/20 20:36 23:21 05:18 PT INR Sodium Potassium Chloride Carbon Dioxide Anion Gap BUN Creatinine Estim Creat Clear Calc Estimated GFR POC Glucose 119 H 98 110 Random Glucose Estimat Average Glucose Hemoglobin A1c % Calcium Magnesium B-Natriuretic Peptide 06/19/20 06/19/20 06/19/20 06:00 06:00 06:00 PT INR Sodium 141 Potassium 3.9 Chloride 89 L Carbon Dioxide 41 H* Anion Gap 15 BUN 14 Creatinine 0.83 Estim Creat Clear Calc 176.9 Estimated GFR > 60 POC Glucose Random Glucose 89 Estimat Average Glucose 126 Hemoglobin A1c % 6.0 Calcium 8.5 Magnesium 1.2 L* B-Natriuretic Peptide 281 H <AUGUSTINE Monroe - Last Filed: 06/19/20 16:11> Progress Note: A&P Assessment and plan (1) Acute respiratory failure with hypoxia and hypercapnia: Status: Acute <AUGUSTINE Monroe - Last Filed: 06/19/20 16:11> Assessment and Plan: Admit with sob, decompensated acute congestive heart failure with hypoxic and hypercarbic respiratory failure. He has been undergoing diuresis and fluid balance neg 10.7 liters since admit. Echo yesterday shows TDS, EF 45-50%, severe LA dilation, RV difficult to assess, dilated IVC. Breathing comfortable at rest and still sob with activity. Has LE edema and rales/ wheezes on exam. O2 2liters with sat 97%. 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 Continue to diurese with IV lasix drip. Strict I+O monitoring. Close monitoring of electrolyte and kidney function with electrolyte replacement as warranted. Daily weights. CHF education prior to discharge. Will need outpt sleep study. Aldactone added yesterday. We will follow. <AUGUSTINE Monroe - Last Filed: 06/19/20 16:11> (2) CHF (congestive heart failure): Status: Acute <AUGUSTINE Monroe - Last Filed: 06/19/20 16:11> Assessment and Plan: Patient seen and examined, case discussed with Bell Barr. Patient is feeling better. Patient is diuresing well. Tolerating current medications. Slowly improving congestive heart failure still fluid overloaded. Continue Lasix drip. Agree with Diamox due to elevated CO2. Continue spironolactone therapy. Continue strict I&Os Q shift. Trend BMP and BNP. 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 Consider BiPAP therapy. Will follow with you of <Carl Gorman MD - Last Filed: 06/19/20 16:17> (3) Obstructive sleep apnea: Status: Acute <AUGUSTINE Monroe - Last Filed: 06/19/20 16:11> Assessment and Plan: Presumed, will need further eval as outpt <AUGUSTINE Monroe - Last Filed: 06/19/20 16:11> (4) Afib: Status: Acute <AUGUSTINE Monroe - Last Filed: 06/19/20 16:11> Assessment and Plan: Chronic afib. Does not follow with cardiology. Rates elevated this admit. Home Diltiazem stopped due to HF. Home Metoprolol increased from BID up to QID. Recieved Digoxin load in last day. Tele shows afib rates 100-110 this am. No report of palpitation. Home Coumadin stopped due to Labile INRs. Has been started on Xarelto for anticoagulation. Continue current metoprolol and ongoing tele monitoring. Will start on daily Digoxin. <AUGUSTINE Monroe - Last Filed: 06/19/20 16:11> Chronic atrial fibrillation, or borderline rate control. Agree with maximizing metoprolol therapy. Switch to p.o. digoxin 0.25 mg daily. Continue full oral anticoagulation as prescribed. Will follow with you <Carl Gorman MD - Last Filed: 06/19/20 16:17> (5) Uncontrolled hypertension: Status: Acute <AUGUSTINE Monroe - Last Filed: 06/19/20 16:11> Assessment and Plan: Hx HTN. Home diltiazem was stopped. Aldactone 25mg daily was added. Metoprolol increased and continues on Lisinopril 5mg daily. BP elevated in last 12+ hours. This am 174/86. - now with improved readings. Continue to follow BP. <AUGUSTINE Monroe - Last Filed: 06/19/20 16:11> (6) Morbid obesity: Status: Acute <AUGUSTINE Monroe - Last Filed: 06/19/20 16:11> Fall Risk Details Current Medications: Current Medications Generic Name Dose Route Start Last Admin Trade Name Freq PRN Reason Stop Dose Admin Acetazolamide 250 mg 06/19/20 09:00 Acetazolamide 250 Mg Tablet PO BID [facility] Allopurinol 300 mg 06/19/20 09:00 06/19/20 08:13 Allopurinol 300 Mg Tablet PO 300 mg DAILY MARIANELA Administration Atorvastatin Calcium 20 mg 06/18/20 21:00 06/18/20 21:01 Atorvastatin Calcium 20 Mg Tablet PO 20 mg BEDTIME MARIANELA Administration Furosemide 500 mg/ IV 50 mls @ 0.5 mls/hr 06/16/20 15:30 06/18/20 16:23 Miscellaneous Supplies IVCONT 5 mg/hr .Q24H MARIANELA 0.5 mls/hr Administration 5 MG/HR Magnesium Sulfate 2 gm in 50 mls @ 25 mls/hr 06/19/20 08:33 IV 06/19/20 10:32 ONCE ONE Insulin Human Lispro 0 unit 06/16/20 18:00 06/19/20 05:19 Insulin Lispro 100 Unit/Ml 3 Ml Vial SUBCUT Not Given Q6H [facility] Protocol Lisinopril 5 mg 06/19/20 09:00 06/19/20 08:12 Lisinopril 5 Mg Tablet PO 5 mg DAILY MARIANELA Administration Protocol Lorazepam 0.5 mg 06/18/20 16:34 Lorazepam 0.5 Mg Tablet PO TID PRN Anxiety Magnesium Oxide 400 mg 06/19/20 17:30 Magnesium Oxide 400 Mg Tablet PO BIDPC [facility] Metoprolol Tartrate 25 mg 06/19/20 09:00 06/19/20 08:13 Metoprolol Tartrate 25 Mg Tablet PO 25 mg QID MARIANELA Administration Protocol Nystatin 1 appl 06/16/20 21:00 06/19/20 08:13 Nystatin Powder 15 Gm Bottle TOPICAL 1 appl BID [facility] Administration Protocol Ondansetron HCl 4 mg 06/16/20 15:21 Ondansetron Hcl 4 Mg/2 Ml Vial IVPUSH Q8H PRN Nausea Oxycodone HCl 20 mg 06/18/20 09:00 06/19/20 08:13 Oxycodone Hcl Er 10 Mg Tab.Er.12h PO 20 mg BID MARIANELA Administration Oxycodone HCl 10 mg 06/18/20 08:53 06/18/20 18:01 Oxycodone Hcl Immed Release 5 Mg Tablet PO 10 mg Q6H PRN Administration breakthrough pain Pharmacy Consult 1 each 06/16/20 14:54 Consult Rx Perform Med Rec MISCELLANE ONCE PRN Consult order Rivaroxaban 20 mg 06/18/20 11:15 06/19/20 08:12 Rivaroxaban 20 Mg Tablet PO 20 mg DAILY MARIANELA Administration Spironolactone 25 mg 06/18/20 11:15 06/19/20 08:13 Spironolactone 25 Mg Tablet PO 25 mg DAILY MARIANELA Administration Protocol Tramadol HCl 50 mg 06/17/20 11:07 06/18/20 07:56 Tramadol Hcl 50 Mg Tablet PO 50 mg Q6H PRN Administration Pain, Moderate (Pain Scale 4-6 <AUGUSTINE Monroe - Last Filed: 06/19/20 16:11> Time Spent With Patient Time: Total time spent is greater than 50% in coordination of care (as documented) at patient's floor/unit and/or counseling patient: 18 <AUGUSTINE Monroe - Last Filed: 06/19/20 16:11> Time with patient: 15 - 24 minutes <AUGUSTINE Monroe - Last Filed: 06/19/20 16:11>
[2020-06-19] MEDS: acetaZOLAMIDE 250 MG TABLET PO ×2 (09:35→21:41)
[2020-06-19] MEDS: Magnesium Sulfate/H2O 2 GM/50 ML PIGGYBACK IV (09:37)
[2020-06-19 12:19] LABS: Glucose, Whole Blood 97 mg/dL (60-115)
[2020-06-19] MEDS: Furosemide 500 MG in Container,Empty 0 ML IVCONT (14:50)
--- NOTE | 2020-06-19 15:28 | P.PNIM_ITS ---
Subjective Subjective Date of Service: 06/19/20 Interval History: breathing improved still quite swollen no chest pain Physical Exam Vital Signs: Vital Signs: Last Vital Signs Temp 97.7 F 06/19/20 15:15 Pulse 80 06/19/20 15:15 Resp 18 06/19/20 15:15 BP 141/62 H 06/19/20 15:15 Pulse Ox 98 06/19/20 15:15 Body Mass Index 67.8 Gen: mild respiratory distress HEENT: sclera anicteric, moist mucus membranes Neck: supple Lungs: diminished air entry at bases bilaterally Heart: irregular, distant heart sounds due to body habitus Abd: morbidly obese Ext: 2+ bilateral lower extremity edema Skin: warm/well-perfused, chronic venous stasis dermatitis Neuro: alert and oriented x3, no focal findings Psych: appropriate affect Objective Data Current Medications Generic Name Dose Route Start Last Admin Trade Name Freq PRN Reason Stop Dose Admin Acetazolamide 250 mg 06/19/20 09:00 06/19/20 09:35 Acetazolamide 250 Mg Tablet PO 250 mg BID MARIANELA Administration Allopurinol 300 mg 06/19/20 09:00 06/19/20 08:13 Allopurinol 300 Mg Tablet PO 300 mg DAILY MARIANELA Administration Atorvastatin Calcium 20 mg 06/18/20 21:00 06/18/20 21:01 Atorvastatin Calcium 20 Mg Tablet PO 20 mg BEDTIME MARIANELA Administration Furosemide 500 mg/ IV 50 mls @ 0.5 mls/hr 06/16/20 15:30 06/19/20 14:50 Miscellaneous Supplies IVCONT 5 mg/hr .Q24H MARIANELA 0.5 mls/hr Administration 5 MG/HR Insulin Human Lispro 0 unit 06/16/20 18:00 06/19/20 12:42 Insulin Lispro 100 Unit/Ml 3 Ml Vial SUBCUT Not Given Q6H MARIANELA Protocol Lisinopril 5 mg 06/19/20 09:00 06/19/20 08:12 Lisinopril 5 Mg Tablet PO 5 mg DAILY MARIANELA Administration Protocol Lorazepam 0.5 mg 06/18/20 16:34 Lorazepam 0.5 Mg Tablet PO TID PRN Anxiety Magnesium Oxide 400 mg 06/19/20 17:30 Magnesium Oxide 400 Mg Tablet PO BIDPC MARIANELA Metoprolol Tartrate 25 mg 06/19/20 09:00 06/19/20 13:11 Metoprolol Tartrate 25 Mg Tablet PO 25 mg QID MARIANELA Administration Protocol Nystatin 1 appl 06/16/20 21:00 06/19/20 08:13 Nystatin Powder 15 Gm Bottle TOPICAL 1 appl BID MARIANELA Administration Protocol Ondansetron HCl 4 mg 06/16/20 15:21 Ondansetron Hcl 4 Mg/2 Ml Vial IVPUSH Q8H PRN Nausea Oxycodone HCl 20 mg 06/18/20 09:00 06/19/20 08:13 Oxycodone Hcl Er 10 Mg Tab.Er.12h PO 20 mg BID MARIANELA Administration Oxycodone HCl 10 mg 06/18/20 08:53 06/18/20 18:01 Oxycodone Hcl Immed Release 5 Mg Tablet PO 10 mg Q6H PRN Administration breakthrough pain Pharmacy Consult 1 each 06/16/20 14:54 Consult Rx Perform Med Rec MISCELLANE ONCE PRN Consult order Rivaroxaban 20 mg 06/18/20 11:15 06/19/20 08:12 Rivaroxaban 20 Mg Tablet PO 20 mg DAILY MARIANELA Administration Spironolactone 25 mg 06/18/20 11:15 06/19/20 08:13 Spironolactone 25 Mg Tablet PO 25 mg DAILY [facility] Administration Protocol Tramadol HCl 50 mg 06/17/20 11:07 06/18/20 07:56 Tramadol Hcl 50 Mg Tablet PO 50 mg Q6H PRN Administration Pain, Moderate (Pain Scale 4-6 Labs CBC & Chem 7: 06/18/20 06:05 06/19/20 06:00 Labs: Laboratory Results - last 24 hr 06/18/20 06/18/20 06/18/20 16:26 20:36 23:21 Sodium Potassium Chloride Carbon Dioxide Anion Gap BUN Creatinine Estim Creat Clear Calc Estimated GFR POC Glucose 90 119 H 98 Random Glucose Estimat Average Glucose Hemoglobin A1c % Calcium Magnesium B-Natriuretic Peptide 06/19/20 06/19/20 06/19/20 05:18 06:00 06:00 Sodium 141 Potassium 3.9 Chloride 89 L Carbon Dioxide 41 H* Anion Gap 15 BUN 14 Creatinine 0.83 Estim Creat Clear Calc 176.9 Estimated GFR > 60 POC Glucose 110 Random Glucose 89 Estimat Average Glucose Hemoglobin A1c % Calcium 8.5 Magnesium 1.2 L* B-Natriuretic Peptide 281 H 06/19/20 06/19/20 06:00 12:15 Sodium Potassium Chloride Carbon Dioxide Anion Gap BUN Creatinine Estim Creat Clear Calc Estimated GFR POC Glucose 97 Random Glucose Estimat Average Glucose 126 Hemoglobin A1c % 6.0 Calcium Magnesium B-Natriuretic Peptide TTE 06/18/20 1. Technically extremely limited study despite use of definity due to body habitus and off axis views 2. LV systolic function appears marginally depressed with LVEF of 45-50%, diastolic function is not well characterized 3. Limited evaluation of remainder of the cardiac chambers especially right sided chambers. 4. Severely dilated left atrium 5. Limited evaluation of cardiac valves 6. Significantly elevated right atrial pressures as noted by significantly dilated IVC with no collapse Microbiology Microbiology Results: Microbiology 06/16/20 14:15 Blood - Venous Blood Culture - Preliminary No growth after 48 hours. 06/16/20 14:30 Blood - Venous Blood Culture - Preliminary No growth after 48 hours. Assessment and Plan (1) Acute respiratory failure with hypoxia and hypercapnia: Status: Acute (2) Afib: Status: Acute (3) CHF (congestive heart failure): Status: Acute Assessment and Plan: hospital d#4 64yo M with CHF, AF, morbid obesity, DM, HTN, peripheral neuropathy, chronic back pain admitted to ICU with acute hypercapneic respiratory failure and acute decompensated HF, placed on BiPAP + furosemide gtt stepped down to [facility] 06/17/20 # ADHF - continue furosemide gtt, overall negative 10.8 this admission - continue spironolactone - SGLT2 inhibitor [not on hospital formulary- will prescribe upon discharge empagliflozin 10 mg daily] - strict I/O, trend BNP, monitor BMP/Mg, low-Na diet - continue lisinopril, metoprolol # AF, chronic, with RVR # labile INR; changed AC from warfarin to rivaroxaban - digitalizated yesterday; increase metoprolol # acute/chronic hypercarbic respiratory failure - 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 continue BiPAP at night, will need outpt sleep study # morbid obesity - consider outpt bariatrics evaluation # hypoMg - replete PO+IV, recheck # metabolic alkalosis - acetazolamide # gout - continue allopurinol # DM2, HbA1c 6 - correction-dose lispro # VTE ppx - rivaroxaban # dispo - likely home with VNA once euvolemic
[2020-06-19] MEDS: Magnesium Oxide 400 MG TABLET PO (17:07)
[2020-06-19 17:09] LABS: Glucose, Whole Blood 109 mg/dL (60-115)
--- NOTE | 2020-06-19 17:19 | PM.EVENT ---
Event Note Date of Service: 06/19/20 Event Note: This 64 years old gentleman with morbid obesity, has been treated for acute on chronic diastolic congestive heart failure and also respiratory failure , He has typical features of obstructive sleep apnea/ chronic Hypoventilation syndrome. And probably has aggravation of congestive heart failure due to on treated NATI/HYPOVENTILATION SYNDROME . He claims that he remains physically active at home., has no sleep problem, and has not been told about sleep apnea before. ABGs have improved and his last pCO2 is 50. Venous blood gas sample shows metabolic alkalosis. Complete note to be dictated. Plan is to start him on Diamox 250 mg b.i.d., repeat a venous blood gas in the morning, if pCO2 is still elevated, then will tried to qualify him for BiPAP use. Otherwise we will need to do a complete polysomnogram study as soon as he is discharge from the hospital . He would definitely need to be on noninvasive ventilatory support at night times.
[2020-06-19 18:02] LABS: Venous Blood Gas Refer to POC result
[2020-06-19 18:04] LABS: VBG Base Excess 22.5 mmol/L; VBG HCO3 55 mmol/L (22-26); VBG pCO2 99 mmHg; VBG pH 7.35 (7.32-7.43); VBG pO2 35 mmHg
[2020-06-19] MEDS: Albuterol/Iprat 2.5/0.5MG 3 ML AMPUL.NEB INHALE (18:49)
[2020-06-19] MEDS: oxyCODONE HCl Immed Release 5 MG TABLET 10 MG PO (19:22)
[2020-06-19 19:53] LABS: Glucose, Whole Blood 113 mg/dL (60-115)
--- NOTE | 2020-06-19 20:24 | PC.NURSE ---
15:00-19:00; Upon assessment, pt denies sob, chest pain or dizziness. Pt obb in the recliner, assisted pt back to bed, and pt became very short of breath, wheezing noted, lung sounds dim throughout. made aware, new orders in for Duoneb and given by RT, with improvement. Joaquin cath in place, hematuria noted in Joaquin bag. New for patient. Pt on xarelto for afib. Dr. Gruber notified. Received orders for Urology consult and d/c xarelto. Orders placed by this RN. Report given to next nurse.
[2020-06-19] MEDS: Atorvastatin Calcium 20 MG TABLET PO (21:41)
[2020-06-19 23:58] LABS: Glucose, Whole Blood 111 mg/dL (60-115)
[2020-06-20] VITALS (13 sets, daily range): BP systolic 113–146; BP diastolic 62–91; PULSE 83–105; RESP 18–28; TEMP 36.6–37.1; O2SAT 93–102; BMI 67.2
[2020-06-20 05:49] LABS: Glucose, Whole Blood 82 mg/dL (60-115)
[2020-06-20 06:19] LABS: Venous Blood Gas Refer to POC result
[2020-06-20 06:20] LABS: VBG Base Excess 16.5 mmol/L; VBG HCO3 47 mmol/L (22-26); VBG pCO2 83 mmHg; VBG pH 7.35 (7.32-7.43); VBG pO2 31 mmHg
[2020-06-20 06:50] LABS: B Type Natriuretic Peptide 346 pg/mL (<100)
[2020-06-20 07:34] LABS: Anion Gap 12 (12-20); Blood Urea Nitrogen 18 mg/dL (9-16); Calcium 8.8 mg/dL (8.4-10.2); Carbon Dioxide 42 mmol/L (22-29); Chloride 89 mmol/L (96-108); Estimated Glomerular Filt Rate > 60; Glucose Random 92 mg/dL (60-115); Magnesium 1.5 mg/dL (1.6-2.6); Potassium 3.7 mmol/L (3.3-5.1); Sodium 139 mmol/L (135-145)
[2020-06-20 07:40] LABS: Glucose, Whole Blood 91 mg/dL (60-115)
[2020-06-20] MEDS: Magnesium Oxide 400 MG TABLET PO ×2 (09:02→16:35)
[2020-06-20] MEDS: Metoprolol Tartrate 25 MG TABLET PO ×4 (09:02→20:53)
[2020-06-20] MEDS: allopurinoL 300 MG TABLET PO (09:02)
[2020-06-20] MEDS: acetaZOLAMIDE 250 MG TABLET PO ×2 (09:03→20:53)
[2020-06-20] MEDS: oxyCODONE HCl ER 10 MG TAB.ER.12H 20 MG PO ×2 (09:03→20:53)
[2020-06-20] MEDS: lisinopriL 5 MG TABLET PO (09:03)
[2020-06-20] MEDS: Digoxin 0.25 MG TABLET PO (09:03)
[2020-06-20] MEDS: Spironolactone 25 MG TABLET PO (09:03)
[2020-06-20] MEDS: Nystatin Powder 15 GM BOTTLE 1 APPL TOPICAL ×2 (09:04→22:42)
[2020-06-20] MEDS: Magnesium Sulfate/H2O 2 GM/50 ML PIGGYBACK IV (09:05)
[2020-06-20 11:20] LABS: Glucose, Whole Blood 100 mg/dL (60-115)
--- NOTE | 2020-06-20 11:53 | PM.PNPUL ---
Subjective Subjective Date of Service: 06/20/20 Principal diagnosis: CHF, Resp failure, chronic afib, HTN, orbid obesity Interval history: Patient seen for pulmonary follow-up. He claims that he used BiPAP at night. Claims that it is somewhat uncomfortable but he was able to keep it on. He claims that his breathing is better, Denies any chest pain fever or chills. Remains generally weak and short of breath. His activity level is markedly limited, just between the bed and bedside recliner at this time. Objective Data Labs CBC & Chem 7: 06/18/20 06:05 06/20/20 06:08 Labs: Laboratory Results - last 24 hr 06/19/20 06/19/20 06/19/20 12:15 17:06 17:54 VBG pH 7.35 VBG pCO2 99 VBG pO2 35 VBG HCO3 55 H VBG O2 Saturation 57.0 VBG Base Excess 22.5 Sodium Potassium Chloride Carbon Dioxide Anion Gap BUN Creatinine Estim Creat Clear Calc Estimated GFR POC Glucose 97 109 Random Glucose Calcium Magnesium B-Natriuretic Peptide 06/19/20 06/19/20 06/20/20 19:49 23:54 05:45 VBG pH VBG pCO2 VBG pO2 VBG HCO3 VBG O2 Saturation VBG Base Excess Sodium Potassium Chloride Carbon Dioxide Anion Gap BUN Creatinine Estim Creat Clear Calc Estimated GFR POC Glucose 113 111 82 Random Glucose Calcium Magnesium B-Natriuretic Peptide 06/20/20 06/20/20 06/20/20 06:08 06:08 06:14 VBG pH 7.35 VBG pCO2 83 VBG pO2 31 VBG HCO3 47 H VBG O2 Saturation 50.0 VBG Base Excess 16.5 Sodium 139 Potassium 3.7 Chloride 89 L Carbon Dioxide 42 H* Anion Gap 12 BUN 18 H Creatinine 0.98 Estim Creat Clear Calc 149.0 Estimated GFR > 60 POC Glucose Random Glucose 92 Calcium 8.8 Magnesium 1.5 L B-Natriuretic Peptide 346 H 06/20/20 06/20/20 07:25 11:00 VBG pH VBG pCO2 VBG pO2 VBG HCO3 VBG O2 Saturation VBG Base Excess Sodium Potassium Chloride Carbon Dioxide Anion Gap BUN Creatinine Estim Creat Clear Calc Estimated GFR POC Glucose 91 100 Random Glucose Calcium Magnesium B-Natriuretic Peptide Microbiology Microbiology Results: Microbiology 06/16/20 14:15 Blood - Venous Blood Culture - Preliminary No growth after 48 hours. 06/16/20 14:30 Blood - Venous Blood Culture - Preliminary No growth after 48 hours. Review of Systems Review of Systems Yes all other systems are reviewed and are negative Constitutional: Denies snoring Reports system reviewed and no additional complaints, except as documented Cardiovascular: Reports leg edema and Reports dyspnea Respiratory: Reports dyspnea, Denies snoring, Denies stridor and Denies wheezing Gastrointestinal: Denies dyspepsia and Denies heartburn Musculoskeletal: Reports back pain and Reports myalgias Reports system reviewed and no additional complaints, except as documented Allergic/Immunologic: Denies wheezing Physical Exam Vital Signs: Vital Signs: Last Vital Signs Temp 97.9 F 06/20/20 10:57 Pulse 90 06/20/20 10:57 Resp 28 H 06/20/20 10:57 BP 113/62 06/20/20 10:57 Pulse Ox 93 06/20/20 10:57 Body Mass Index 67.2 Const: Other: He is morbidly obese, BMI 67 General: comfortable, no acute distress, alert and awake Orientation/consciousness: patient oriented x3 HENMT: Head: Yes normal to inspection General nose exam: No nasal polyps present and No nasal discharge present Face and sinus: Yes sinuses nontender Mouth: oropharynx abnormals (Oropharynx is very crowded, Mallampati class 4) Throat: Yes posterior oropharynx normal Eyes: General: appearance normal, both eyes and all related structures Neck: Neck: Yes normal visual inspection, Yes no lymphadenopathy, Yes trachea midline, Yes no JVD and Yes other (Neck size is 20 in. Extremely obese.) Thyroid: Thyroid normal Chest: Chest palpation & inspection: normal inspection of the chest and normal palpation of entire chest wall Resp: Other: Is breath sounds are greatly diminished because of gross obesity, but no wheezes rhonchi or crepitations are heard. Cardio: Palpation: PMI normal (PMI is not palpable.) Rate: regular rate Rhythm: regular rhythm Heart sounds: no gallops and no murmurs GI: Other: He has the very obese and protuberant abdomen Palpation (GI): Soft to palpation, nontender, No hepatosplenomegaly present and no masses Auscultation: normal bowel sounds Back/Spine/Pelvis: Other: Could not examine the spine because he is in bed in supine position. Skin: General skin exam: no rashes or lesions noted Neuro: General: patient oriented x3 and no focal motor deficits Cranial nerves: Yes CN's II-XII intact bilaterally Extrem: General: Yes normal to inspection, Yes no calf tenderness, Yes edema (1 + edema of legs .) and No venous stasis dermatitis Psych: Appearance: grossly normal Speech and movement: Normal speech and movement present Assessment and Plan Assessment and plan (1) Obstructive sleep apnea: Problem details: This patient has classical features suggesting that he has obstructive sleep apnea/hypoventilation syndrome. He is being educated about this condition on a daily basis. Status: Acute (2) Morbid obesity: Problem details: He has been morbidly obese over the course of many years. Once the acute condition is under control he would need to participate in some aggressive weight management program. Status: Acute (3) Acute respiratory failure with hypoxia and hypercapnia: Problem details: Patient has features of hypoventilation syndrome, with hypercapnia and hypoxemia. It had improved with the use of BiPAP. As he did not use BiPAP for 1 night his CO2, did climb up again. This morning venous blood gas shows pH 7.35 pCO2 83 and PE you to 31, bicarb level 47 is consistent with longstanding her respiratory failure. [place] ; patient needs to use BiPAP at least for 8 hours every day . He is educated and understand well. This the use of BiPAP, some oxygen supplementation, and weight loss is going to be his mainstay treatment. He is being educated as much as possible. Before he is ready for discharge to a rehab facility are home, will try to qualify him for BiPAP at home. This will require overnight oximetry recording on his usual FiO2 or at least 2 L/minutes . Status: Acute Time Spent With Patient Time: Total time spent is greater than 50% in coordination of care (as documented) at patient's floor/unit and/or counseling patient: Time with patient: 25 - 35 minutes
--- NOTE | 2020-06-20 12:25 | PC.NURSE ---
Patient stated he wanted to take a nap. Attempted to put Bipap machine on. Patient started coughing and refused Bipap. Educated on importance and need for Bipap machine. Patient verbalized understanding however still refused Bipap. Patient stated he will wait on taking a nap. Patient currently stating at 92% on 2.5L. No complaints of shortness of breath or difficulty breathing. Will reassess and reeducate patient on importance. Patient has no further complaints at this time.
[2020-06-20] MEDS: oxyCODONE HCl Immed Release 5 MG TABLET 10 MG PO (12:47)
--- NOTE | 2020-06-20 13:30 | P.PNCA_ITS ---
Subjective Subjective Date of Service: 06/20/20 <AUGUSTINE Monroe - Last Filed: 06/20/20 13:40> 06/20/20 <Carl Gorman MD - Last Filed: 06/20/20 15:25> Principal diagnosis: CHF, Resp failure, chronic afib, HTN, morbid obesity <TAINA Monroe - Last Filed: 06/20/20 13:40> Interval history: Cardiology follow up for the above. Seen at 0910. Today he reports not feeling as well as he had been. He states he slept with the mask on and does not feel he slept as well. Breathing is comfortable at rest. wearing O2 2 liters. No chest pains, palpitations. Legs looking less swollen. <AUGUSTINE Monroe - Last Filed: 06/20/20 13:40> Review of Systems Review of Systems as above <AUGUSTINE Monroe - Last Filed: 06/20/20 13:40> Physical Exam Vital Signs: Last Vital Signs Temp 97.9 F 06/20/20 10:57 Pulse 105 H 06/20/20 12:46 Resp 28 H 06/20/20 10:57 BP 115/68 06/20/20 12:46 Pulse Ox 93 06/20/20 10:57 Body Mass Index 67.2 <AUGUSTINE Monroe - Last Filed: 06/20/20 13:40> Const General: cooperative, no acute distress, alert and awake <AUGUSTINE Monroe - Last Filed: 06/20/20 13:40> Orientation/consciousness: patient oriented x3 <TAINA MonroeC - Last Filed: 06/20/20 13:40> Neck Other: no noted JVD <AUGUSTINE Monroe - Last Filed: 06/20/20 13:40> Resp Other: Lungs diminshed with some expiratory wheezes noted <TAINA MonroeC - Last Filed: 06/20/20 13:40> Effort & Inspection: normal respiratory effort, able to speak in complete sentences and not labored <TAINA MonroeC - Last Filed: 06/20/20 13:40> Auscultation: no crackles and no rhonchi <Bellnicki BarrZHAOC - Last Filed: 06/20/20 13:40> Cardio Other: Heart tones irregular irregular, rapid <Bell MomoZHAOC - Last Filed: 06/20/20 13:40> Rate: regular rate <[facility] Momo [facility] - Last Filed: 06/20/20 13:40> Heart sounds: S1 normal heart sound present, S2 normal heart sound present and no murmurs <Bell Momo [facility] - Last Filed: 06/20/20 13:40> GI Other: obese, round, nontender <[facility] Momo [facility] - Last Filed: 06/20/20 13: 40> Inspection: Yes normal to inspection <Bell Momo [facility] - Last Filed: 06/20/20 13:40> Neuro General: patient oriented x3 <Bell Momo, [facility] - Last Filed: 06/20/20 13:40> Extrem Other: venous stasis changes of lower extremeties. Has pitting edema that seems improving. <Bell MomoHZAOC - Last Filed: 06/20/20 13:40> Results Labs and Meds Result diagrams: : 06/18/20 06:05 06/20/20 06:08 <Bell Barr REVIEW COORDINATOR-C - Last Filed: 06/20/20 13:40> Lab results: Laboratory Results - last 24 hr 06/19/20 06/19/20 06/19/20 17:06 17:54 19:49 VBG pH 7.35 VBG pCO2 99 VBG pO2 35 VBG HCO3 55 H VBG O2 Saturation 57.0 VBG Base Excess 22.5 Sodium Potassium Chloride Carbon Dioxide Anion Gap BUN Creatinine Estim Creat Clear Calc Estimated GFR POC Glucose 109 113 Random Glucose Calcium Magnesium B-Natriuretic Peptide 06/19/20 06/20/20 06/20/20 23:54 05:45 06:08 VBG pH VBG pCO2 VBG pO2 VBG HCO3 VBG O2 Saturation VBG Base Excess Sodium 139 Potassium 3.7 Chloride 89 L Carbon Dioxide 42 H* Anion Gap 12 BUN 18 H Creatinine 0.98 Estim Creat Clear Calc 149.0 Estimated GFR > 60 POC Glucose 111 82 Random Glucose 92 Calcium 8.8 Magnesium 1.5 L B-Natriuretic Peptide 06/20/20 06/20/20 06/20/20 06:08 06:14 07:25 VBG pH 7.35 VBG pCO2 83 VBG pO2 31 VBG HCO3 47 H VBG O2 Saturation 50.0 VBG Base Excess 16.5 Sodium Potassium Chloride Carbon Dioxide Anion Gap BUN Creatinine Estim Creat Clear Calc Estimated GFR POC Glucose 91 Random Glucose Calcium Magnesium B-Natriuretic Peptide 346 H 06/20/20 11:00 VBG pH VBG pCO2 VBG pO2 VBG HCO3 VBG O2 Saturation VBG Base Excess Sodium Potassium Chloride Carbon Dioxide Anion Gap BUN Creatinine Estim Creat Clear Calc Estimated GFR POC Glucose 100 Random Glucose Calcium Magnesium B-Natriuretic Peptide <AUGUSTINE Monroe - Last Filed: 06/20/20 13:40> Progress Note: A&P Assessment and plan (1) Acute respiratory failure with hypoxia and hypercapnia: Status: Acute <AUGUSTINE Monroe - Last Filed: 06/20/20 13:40> Assessment and Plan: Admit with sob, decompensated acute congestive heart failure with hy poxic and hypercarbic respiratory failure. He has been undergoing diuresis and fluid balance neg 13 liters since admit. Echo 06/18 shows TDS, EF 45-50%, severe LA dilation, RV difficult to assess, dilated IVC. Breathing comfortable at rest and still sob with activity. Has LE edema, which looks less, and wheezes on exam. O2 2liters with sat 97%. 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 Continue to diurese with IV lasix drip. Strict I+O monitoring. Close monitoring of electrolyte and kidney function with electrolyte replacement as warranted. Daily weights. CHF education prior to discharge. Will need outpt sleep study. Ald actone added this admit. Pulmonology added Diamox. We will follow <AUGUSTINE Meraz - Last Filed: 06/20/20 13:40> (2) CHF (congestive heart failure): Status: Acute <AUGUSTINE Monroe - Last Filed: 06/20/20 13:40> Assessment and Plan: as above <AUGUSTINE Monroe - Last Filed: 06/20/20 13:40> Congestive heart failure predominantly right-sided heart failure secondary to Pickwickian syndrome and chronic respiratory failure related to morbid obesity and possibly untreated sleep apnea. He requires BiPAP therapy. Aggressive treatment of obesity. He requires continues diuresis. Continue Aldactone therapy. Watch electrolytes closely. Prognosis is guarded. <Carl Gorman MD - Last Filed: 06/20/20 15:25> (3) Obstructive sleep apnea: Problem details: This patient has classical features suggesting that he has obstructive sleep apnea/hypoventilation syndrome <AUGUSTINE Monroe - Last Filed: 06/20/20 13:40> Status: Acute <AUGUSTINE Monroe - Last Filed: 06/20/20 13:40> (4) Afib: Status: Acute <AUGUSTINE Monroe - Last Filed: 06/20/20 13:40> Assessment and Plan: Chronic afib. Does not follow with cardiology prior to admit. Rates elevated this admit. Home Diltiazem stopped due to HF. Home Metoprolol increased from BID up to QID. Recieved Digoxin load and started on daily Dig. Tele shows afib rates 90s - 105 this am. No report of palpitation. Home Coumadin stopped due to Labile INRs. Has been started on Xarelto for anticoagulation. Continue current metoprolol and ongoing tele monitoring. <AUGUSTINE Monroe - Last Filed: 06/20/20 13:40> Atrial fibrillation rate controlled. Continue current rate control strategy. Continue full oral anticoagulation with Xarelto. Has failed rhythm control in the past. Will follow the patient <Carl Gorman MD - Last Filed: 06/20/20 15:25> (5) Morbid obesity: Problem details: He has been morbidly obese Once the acute condition is under control he would need to participate in some aggressive weight management program. <AUGUSTINE Monroe - Last Filed: 06/20/20 13:40> Status: Acute <AUGUSTINE Monroe - Last Filed: 06/20/20 13:40> Fall Risk Details Current Medications: Current Medications Generic Name Dose Route Start Last Admin Trade Name Freq PRN Reason Stop Dose Admin Acetazolamide 250 mg 06/19/20 09:00 06/20/20 09:03 Acetazolamide 250 Mg Tablet PO 250 mg BID MARIANELA Administration Albuterol/Ipratropium 3 ml 06/19/20 18:25 06/19/20 18:49 Albuterol/Iprat 2.5/0.5mg 3 Ml Ampul.Neb INHALE 3 ml Q4H PRN Administration Wheezing Allopurinol 300 mg 06/19/20 09:00 06/20/20 09:02 Allopurinol 300 Mg Tablet PO 300 mg DAILY MARIANELA Administration Atorvastatin Calcium 20 mg 06/18/20 21:00 06/19/20 21:41 Atorvastatin Calcium 20 Mg Tablet PO 20 mg BEDTIME MARIANELA Administration Digoxin 0.25 mg 06/20/20 09:00 06/20/20 09:03 Digoxin 0.25 Mg Tablet PO 0.25 mg DAILY MARIANELA Administration Furosemide 500 mg/ IV 50 mls @ 0.5 mls/hr 06/16/20 15:30 06/20/20 11:12 Miscellaneous Supplies IVCONT 5 mg/hr .Q24H MARIANELA 0.5 mls/hr Infusion 5 MG/HR Insulin Human Lispro 0 unit 06/20/20 11:30 06/20/20 11:24 Insulin Lispro 100 Unit/Ml 3 Ml Vial SUBCUT Not Given QIDACHS [facility] Protocol Lisinopril 5 mg 06/19/20 09:00 06/20/20 09:03 Lisinopril 5 Mg Tablet PO 5 mg DAILY MARIANELA Administration Protocol Lorazepam 0.5 mg 06/18/20 16:34 Lorazepam 0.5 Mg Tablet PO TID PRN Anxiety Magnesium Oxide 400 mg 06/19/20 17:30 06/20/20 09:02 Magnesium Oxide 400 Mg Tablet PO 400 mg BIDPC MARIANELA Administration Metoprolol Tartrate 25 mg 06/19/20 09:00 06/20/20 12:46 Metoprolol Tartrate 25 Mg Tablet PO 25 mg QID MARIANELA Administration Protocol Nystatin 1 appl 06/16/20 21:00 06/20/20 09:04 Nystatin Powder 15 Gm Bottle TOPICAL 1 appl BID MARIANELA Administration Protocol Ondansetron HCl 4 mg 06/16/20 15:21 Ondansetron Hcl 4 Mg/2 Ml Vial IVPUSH Q8H PRN Nausea Oxycodone HCl 20 mg 06/18/20 09:00 06/20/20 09:03 Oxycodone Hcl Er 10 Mg Tab.Er.12h PO 20 mg BID MARIANELA Administration Oxycodone HCl 10 mg 06/18/20 08:53 06/20/20 12:47 Oxycodone Hcl Immed Release 5 Mg Tablet PO 10 mg Q6H PRN Administration breakthrough pain Pharmacy Consult 1 each 06/16/20 14:54 Consult Rx Perform Med Rec MISCELLANE ONCE PRN Consult order Spironolactone 25 mg 06/18/20 11:15 06/20/20 09:03 Spironolactone 25 Mg Tablet PO 25 mg DAILY MARIANELA Administration Protocol Tramadol HCl 50 mg 06/17/20 11:07 06/18/20 07:56 Tramadol Hcl 50 Mg Tablet PO 50 mg Q6H PRN Administration Pain, Moderate (Pain Scale 4-6 <AUGUSTINE Monroe - Last Filed: 06/20/20 13:40> Time Spent With Patient Time: Total time spent is greater than 50% in coordination of care (as docum ented) at patient's floor/unit and/or counseling patient: 19 <AUGUSTINE Monroe - Last Filed: 06/20/20 13:40> Time with patient: 15 - 24 minutes <AUGUSTINE Monroe - Last Filed: 06/20/20 13:40>
--- NOTE | 2020-06-20 15:23 | HO.PM.IMPN ---
Subjective Subjective Date of Service: 06/20/20 Interval History: c/o fatigue but not short of breath edema improved no chest pain or lightheadedness Physical Exam Vital Signs: Vital Signs: Last Vital Signs Temp 98.2 F 06/20/20 15:15 Pulse 83 06/20/20 15:15 Resp 18 06/20/20 15:15 BP 140/70 H 06/20/20 15:15 Pulse Ox 93 06/20/20 15:15 Body Mass Index 67.2 Gen: NAD HEENT: sclera anicteric, moist mucus membranes Neck: supple Lungs: diminished air entry at bases bilaterally Heart: irregular, distant heart sounds due to body habitus Abd: morbidly obese Ext: 2+ bilateral lower extremity edema Skin: warm/well-perfused, chronic venous stasis dermatitis Neuro: alert and oriented x3, no focal findings Psych: appropriate affect Objective Data Current Medications Generic Name Dose Route Start Last Admin Trade Name Freq PRN Reason Stop Dose Admin Acetazolamide 250 mg 06/19/20 09:00 06/20/20 09:03 Acetazolamide 250 Mg Tablet PO 250 mg BID MARIANELA Administration Albuterol/Ipratropium 3 ml 06/19/20 18:25 06/19/20 18:49 Albuterol/Iprat 2.5/0.5mg 3 Ml Ampul.Neb INHALE 3 ml Q4H PRN Administration Wheezing Allopurinol 300 mg 06/19/20 09:00 06/20/20 09:02 Allopurinol 300 Mg Tablet PO 300 mg DAILY MARIANELA Administration Atorvastatin Calcium 20 mg 06/18/20 21:00 06/19/20 21:41 Atorvastatin Calcium 20 Mg Tablet PO 20 mg BEDTIME MARIANELA Administration Digoxin 0.25 mg 06/20/20 09:00 06/20/20 09:03 Digoxin 0.25 Mg Tablet PO 0.25 mg DAILY MARIANELA Administration Furosemide 500 mg/ IV 50 mls @ 0.5 mls/hr 06/16/20 15:30 06/20/20 11:12 Miscellaneous Supplies IVCONT 5 mg/hr .Q24H MARIANELA 0.5 mls/hr Infusion 5 MG/HR Insulin Human Lispro 0 unit 06/20/20 11:30 06/20/20 11:24 Insulin Lispro 100 Unit/Ml 3 Ml Vial SUBCUT Not Given QIDACHS [facility] Protocol Lisinopril 5 mg 06/19/20 09:00 06/20/20 09:03 Lisinopril 5 Mg Tablet PO 5 mg DAILY MARIANELA Administration Protocol Lorazepam 0.5 mg 06/18/20 16:34 Lorazepam 0.5 Mg Tablet PO TID PRN Anxiety Magnesium Oxide 400 mg 06/19/20 17:30 06/20/20 09:02 Magnesium Oxide 400 Mg Tablet PO 400 mg BIDPC MARIANELA Administration Metoprolol Tartrate 25 mg 06/19/20 09:00 06/20/20 12:46 Metoprolol Tartrate 25 Mg Tablet PO 25 mg QID MARIANELA Administration Protocol Nystatin 1 appl 06/16/20 21:00 06/20/20 09:04 Nystatin Powder 15 Gm Bottle TOPICAL 1 appl BID [facility] Administration Protocol Ondansetron HCl 4 mg 06/16/20 15:21 Ondansetron Hcl 4 Mg/2 Ml Vial IVPUSH Q8H PRN Nausea Oxycodone HCl 20 mg 06/18/20 09:00 06/20/20 09:03 Oxycodone Hcl Er 10 Mg Tab.Er.12h PO 20 mg BID MARIANELA Administration Oxycodone HCl 10 mg 06/18/20 08:53 06/20/20 12:47 Oxycodone Hcl Immed Release 5 Mg Tablet PO 10 mg Q6H PRN Administration breakthrough pain Pharmacy Consult 1 each 06/16/20 14:54 Consult Rx Perform Med Rec MISCELLANE ONCE PRN Consult order Spironolactone 25 mg 06/18/20 11:15 06/20/20 09:03 Spironolactone 25 Mg Tablet PO 25 mg DAILY [facility] Administration Protocol Tramadol HCl 50 mg 06/17/20 11:07 06/18/20 07:56 Tramadol Hcl 50 Mg Tablet PO 50 mg Q6H PRN Administration Pain, Moderate (Pain Scale 4-6 Labs CBC & Chem 7: 06/18/20 06:05 06/20/20 06:08 Labs: Laboratory Results - last 24 hr 06/19/20 06/19/20 06/19/20 17:06 17:54 19:49 VBG pH 7.35 VBG pCO2 99 VBG pO2 35 VBG HCO3 55 H VBG O2 Saturation 57.0 VBG Base Excess 22.5 Sodium Potassium Chloride Carbon Dioxide Anion Gap BUN Creatinine Estim Creat Clear Calc Estimated GFR POC Glucose 109 113 Random Glucose Calcium Magnesium B-Natriuretic Peptide 06/19/20 06/20/20 06/20/20 23:54 05:45 06:08 VBG pH VBG pCO2 VBG pO2 VBG HCO3 VBG O2 Saturation VBG Base Excess Sodium 139 Potassium 3.7 Chloride 89 L Carbon Dioxide 42 H* Anion Gap 12 BUN 18 H Creatinine 0.98 Estim Creat Clear Calc 149.0 Estimated GFR > 60 POC Glucose 111 82 Random Glucose 92 Calcium 8.8 Magnesium 1.5 L B-Natriuretic Peptide 06/20/20 06/20/20 06/20/20 06:08 06:14 07:25 VBG pH 7.35 VBG pCO2 83 VBG pO2 31 VBG HCO3 47 H VBG O2 Saturation 50.0 VBG Base Excess 16.5 Sodium Potassium Chloride Carbon Dioxide Anion Gap BUN Creatinine Estim Creat Clear Calc Estimated GFR POC Glucose 91 Random Glucose Calcium Magnesium B-Natriuretic Peptide 346 H 06/20/20 11:00 VBG pH VBG pCO2 VBG pO2 VBG HCO3 VBG O2 Saturation VBG Base Excess Sodium Potassium Chloride Carbon Dioxide Anion Gap BUN Creatinine Estim Creat Clear Calc Estimated GFR POC Glucose 100 Random Glucose Calcium Magnesium B-Natriuretic Peptide Microbiology Microbiology Results: Microbiology 06/16/20 14:15 Blood - Venous Blood Culture - Preliminary No growth after 48 hours. 06/16/20 14:30 Blood - Venous Blood Culture - Preliminary No growth after 48 hours. Assessment and Plan (1) Obstructive sleep apnea: Problem details: This patient has classical features suggesting that he has obstructive sleep apnea/hypoventilation syndrome Status: Acute Assessment and Plan: hospital d#5 64yo M with CHF, AF, morbid obesity, DM, HTN, peripheral neuropathy, chronic back pain admitted to ICU with acute hypercapneic respiratory failure and acute decompensated HF, placed on BiPAP + furosemide gtt stepped down to IMC 06/17/20 # ADHF - continue furosemide gtt, overall negative 13L this admission - continue spironolactone - SGLT2 inhibitor [not on hospital formulary- will prescribe upon discharge empagliflozin 10 mg daily] - strict I/O, trend BNP, monitor BMP/Mg, low-Na diet - continue lisinopril, metoprolol # AF, chronic, with RVR # labile INR; changed AC from warfarin to rivaroxaban- held briefly for blood-tinged Joaquin but cleared up, so will resume - metoprolol, digoxin maintenance # acute/chronic hypercarbic respiratory failure - 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 continue BiPAP at night for 8hr, overnight oximetry - acetazolamide # morbid obesity - consider outpt bariatrics evaluation # hypoMg - replete PO+IV, recheck # gout - continue allopurinol # DM2, HbA1c 6 - correction-dose lispro # VTE ppx - rivaroxaban # dispo - likely home with VNA once euvolemic
[2020-06-20 16:29] LABS: Glucose, Whole Blood 83 mg/dL (60-115)
[2020-06-20] MEDS: Furosemide 500 MG in Container,Empty 0 ML IVCONT (16:34)
--- NOTE | 2020-06-20 16:38 | CONS_ITS ---
DATE OF SERVICE: 06/19/2020 HISTORY OF PRESENT ILLNESS: 64-year-old gentleman, admitted 2 days ago with acute congestive heart failure and has chronic atrial fibrillation. On his presentation, he had acute ventilatory failure with arterial blood gases being grossly abnormal, pH 7.29, pCO2 of 81, and pO2 of 40. This patient was treated overnight in the intensive care unit with the use of BiPAP and also with diuresis. As his congestive heart failure improved with the use of BiPAP, his blood gases also did improve and pCO2 came down to 63. The patient has been transferred to intermediate medical care level and I was asked to see him for pulmonary evaluation and management. Historically, this gentleman has had morbid obesity for many years. He has not been evaluated for sleep apnea. The patient tells me that he is told about possibility of sleep apnea only when he gets admitted to the hospital and not in between. He claims that he sleeps well at night and he is not aware of any snoring or any respiratory distress. During the daytime, he stays well alert. His mobility is limited because of his morbid obesity and congestive heart failure. This patient is being treated for chronic atrial fibrillation and cardiomyopathy with congestive heart failure. At this time on admission, he had abnormally elevated INR, which has been corrected by holding the anticoagulation. The patient denies smoking. He does do moderate amount of drinking. He is retired and stays mostly at home. REVIEW OF SYSTEMS: As recorded in many notes, basically includes shortness of breath and minimal effort and generalized weakness due to his morbid obesity with limited locomotion. PHYSICAL EXAMINATION: GENERAL: This 64-year-old gentleman is morbidly obese. His current BMI is noted as 67. HEENT: He has a very big round face and head. NECK: Neck size is 20 inches. Oropharynx is crowded. Mallampati scale 4. CHEST: Grossly obese. Percussion note is not perceptible. LUNGS: Breath sounds are diminished all over. There are few inspiratory crackles over the basilar areas. No wheezes. CARDIAC: Sounds are also distant. Rhythm is irregular. HEART: Sounds are not distinctly audible. No murmur. ABDOMEN: Grossly obese and protuberant. EXTREMITIES: Chronic stasis edema is present on both legs. LABORATORY DATA: Arterial blood gases on admission; pH 7.29, pCO2 of 81, pO2 of 40. Venous blood gas shows pCO2 of 63. Chest x-ray, small lung volumes, some congestive changes over the basilar areas, but no pneumonia. CLINICAL IMPRESSION: This patient has classical features of obstructive sleep apnea. I think he has had long-standing hypoventilation syndrome with chronic respiratory failure. The patient has exacerbation of his congestive heart failure mainly due to untreated obstructive sleep apnea and hypoventilation syndrome. The patient also uses oxycodone 20 mg b.i.d., small dose p.r.n. and this may be contributing to his hypoventilation syndrome. RECOMMENDATIONS: Basically, this gentleman needs lot of education about his morbid obesity and obstructive sleep apnea/hypoventilation syndrome. He is going to need use of BiPAP on a daily basis at nighttime for about 6 to 8 hours at least. He may need oxygen supplementation for the time being to keep O2 saturation just above 90 and not over oxygenating. Once he is stabilized, he would need to join an aggressive weight reduction program. Because of his markedly elevated bicarb levels, he can be treated with Diamox 250 mg b.i.d. at this time. We will monitor his blood gases on a daily basis and before he is discharged, we will try to qualify him for the ongoing use of noninvasive ventilatory support at home. Thank you very much for asking me to see this patient. MD ZURI Manzo/KANDY / [phone]
[2020-06-20 20:18] LABS: Glucose, Whole Blood 115 mg/dL (60-115)
[2020-06-20] MEDS: Atorvastatin Calcium 20 MG TABLET PO (20:53)
[2020-06-21] VITALS (10 sets, daily range): BP systolic 94–149; BP diastolic 55–87; PULSE 90–111; RESP 17–20; TEMP 36.3–36.6; O2SAT 90–95; BMI 65.7
[2020-06-21 06:37] LABS: Venous Blood Gas Refer to POC result
[2020-06-21 06:38] LABS: VBG Base Excess 20.3 mmol/L; VBG HCO3 51 mmol/L (22-26); VBG pCO2 86 mmHg; VBG pH 7.38 (7.32-7.43); VBG pO2 32 mmHg
[2020-06-21 07:03] LABS: B Type Natriuretic Peptide 495 pg/mL (<100)
[2020-06-21 07:21] LABS: Glucose, Whole Blood 75 mg/dL (60-115)
[2020-06-21 07:22] LABS: Anion Gap 11 (12-20); Blood Urea Nitrogen 21 mg/dL (9-16); Calcium 8.8 mg/dL (8.4-10.2); Carbon Dioxide 42 mmol/L (22-29); Chloride 91 mmol/L (96-108); Estimated Glomerular Filt Rate > 60; Glucose Random 94 mg/dL (60-115); Magnesium 1.8 mg/dL (1.6-2.6); Potassium 4.4 mmol/L (3.3-5.1); Sodium 140 mmol/L (135-145)
[2020-06-21 08:48] LABS: VBG Base Excess 19.3 mmol/L; VBG HCO3 49 mmol/L (22-26); VBG pCO2 85 mmHg; VBG pH 7.37 (7.32-7.43); VBG pO2 39 mmHg
[2020-06-21 08:48] LABS: Venous Blood Gas Refer to POC result
[2020-06-21] MEDS: lisinopriL 5 MG TABLET PO (08:53)
[2020-06-21] MEDS: Spironolactone 25 MG TABLET PO (08:53)
[2020-06-21] MEDS: acetaZOLAMIDE 250 MG TABLET PO ×2 (08:53→22:04)
[2020-06-21] MEDS: oxyCODONE HCl ER 10 MG TAB.ER.12H 20 MG PO ×2 (08:53→22:03)
[2020-06-21] MEDS: Digoxin 0.25 MG TABLET PO (08:54)
[2020-06-21] MEDS: allopurinoL 300 MG TABLET PO (08:54)
[2020-06-21] MEDS: Magnesium Oxide 400 MG TABLET PO ×2 (08:54→17:39)
[2020-06-21] MEDS: Rivaroxaban 20 MG TABLET PO (08:54)
[2020-06-21] MEDS: Metoprolol Tartrate 25 MG TABLET PO (08:54)
[2020-06-21] MEDS: Nystatin Powder 15 GM BOTTLE 1 APPL TOPICAL ×2 (08:59→22:06)
--- NOTE | 2020-06-21 10:08 | P.PNPL_ITS ---
Subjective Subjective Date of Service: 06/21/20 Principal diagnosis: CHF, Resp failure, chronic afib, HTN, morbid obesity Interval history: PATIENT SEEN FOR PULMONARY FOLLOW-UP. HE IS LYING DOWN SUPINE IN BED. DENIES ANY DISTRESS, COMPLAINS ABOUT DISCOMFORT TO AND INCONVENIENCE FROM USE OF BIPAP LAST NIGHT. CLAIMS THAT HE KEPT IT ON FOR MOST OF THE NIGHT, AT LEAST FOR 7 HOURS. Objective Data Labs CBC & Chem 7: 06/18/20 06:05 06/21/20 06:22 Labs: Laboratory Results - last 24 hr 06/20/20 06/20/20 06/20/20 11:00 16:21 20:11 VBG pH VBG pCO2 VBG pO2 VBG HCO3 VBG O2 Saturation VBG Base Excess Sodium Potassium Chloride Carbon Dioxide Anion Gap BUN Creatinine Estim Creat Clear Calc Estimated GFR POC Glucose 100 83 115 Random Glucose Calcium Magnesium B-Natriuretic Peptide 06/21/20 06/21/20 06/21/20 06:22 06:22 06:32 VBG pH 7.38 VBG pCO2 86 VBG pO2 32 VBG HCO3 51 H VBG O2 Saturation 47.0 VBG Base Excess 20.3 Sodium 140 Potassium 4.4 Chloride 91 L Carbon Dioxide 42 H* Anion Gap 11 L BUN 21 H Creatinine 1.09 Estim Creat Clear Calc 132.0 Estimated GFR > 60 POC Glucose Random Glucose 94 Calcium 8.8 Magnesium 1.8 B-Natriuretic Peptide 495 H 06/21/20 06/21/20 07:17 08:42 VBG pH 7.37 VBG pCO2 85 VBG pO2 39 VBG HCO3 49 H VBG O2 Saturation 62.0 VBG Base Excess 19.3 Sodium Potassium Chloride Carbon Dioxide Anion Gap BUN Creatinine Estim Creat Clear Calc Estimated GFR POC Glucose 75 Random Glucose Calcium Magnesium B-Natriuretic Peptide Microbiology Microbiology Results: Microbiology 06/16/20 14:15 Blood - Venous Blood Culture - Preliminary No growth after 48 hours. 06/16/20 14:30 Blood - Venous Blood Culture - Preliminary No growth after 48 hours. Review of Systems Review of Systems Yes all other systems are reviewed and are negative Cardiovascular: Denies chest pain and Reports dyspnea Respiratory: Reports cough (MILD INTERMITTENT . ) and Reports dyspnea Gastrointestinal: Reports no additional gastrointestinal complaints Genitourinary: Reports no additional male genitourinary complaints Musculoskeletal: Reports back pain, Reports myalgias and Reports muscle weakness Reports Abnormal speech present Physical Exam Vital Signs: Vital Signs: Last Vital Signs Temp 97.8 F 06/21/20 03:59 Pulse 108 H 06/21/20 08:54 Resp 19 06/21/20 03:59 BP 149/71 H 06/21/20 08:54 Pulse Ox 95 06/21/20 03:59 Body Mass Index 65.7 Const: Other: PATIENT MORBIDLY OBESE WITH VERY ROUND FACE. General: co mfortable, no acute distress, alert and awake Orientation/consciousness: patient oriented x3 HENMT: Head: Yes normal to inspection General nose exam: No nasal polyps pr esent and No nasal discharge present Face and sinus: Yes sinuses nontender Mouth: oropharynx abnormals (VERY CROWDED OROPHARYNX, MALLAMPATI CLASS 4) Throat: Yes posterior oropharynx normal Eyes: General: appearance normal, both eyes and all related structures Neck: Neck: Yes normal visual inspection, Yes no lymphadenopathy, Yes trachea midline and Yes no JVD Thyroid: Thyroid normal Chest: Other: GROSSLY OBESE CHEST WALL, NO DEFORMITY AND NO LOCAL TENDERNESS Resp: Other: BREATH SOUNDS ARE DIMINISHED BECAUSE OF HIS GROSS OBESITY, ESPECIALLY OVER THE BASILAR AREAS BUT NO WHEEZES OR CREPITATIONS ARE HEARD Cardio: Palpation: PMI normal (PMI IS NOT PALPABLE) Rate: regular rate Rhythm: regular rhythm Heart sounds: no gallops and no murmurs Peripheral pulses: Peripheral pulses 2+ throughout GI: Other: ABDOMEN IS GROSSLY OBESE AND PROTUBERANT Palpation (GI): Soft to palpation, nontender, No hepatosplenomegaly present and no masses Auscultation: normal bowel sounds Back/Spine/Pelvis: Thoracic/Lumbar Spine: thoracic and lumbar spine normal to inspection Skin: General skin exam: no rashes or lesions noted Neuro: General: patient oriented x3 and no focal motor deficits Cranial nerves: Yes CN's II-XII intact bilaterally Speech: Abnormal speech present Extrem: General: Yes normal to inspection, Yes no calf tenderness, Yes edema (1 PLUS EDEMA OF LEGS . ) and Yes venous stasis dermatitis (CHRONIC .) Psych: Speech and movement: Normal speech and movement present Assessment and Plan Assessment and plan (1) Obstructive sleep apnea: Problem details: CLINICALLY THERE IS NO DOUBT THAT HE HAS RATHER SEVERE DEGREE OF OBSTRUCTIVE SLEEP APNEA. IN ADDITION HE ALSO HAS HYPOVENTILATION SYNDROME, RESULTING IN SEVERE RESPIRATORY FAILURE Status: Acute (2) Morbid obesity: Problem details: HE IS MORBIDLY OBESE Once the acute condition is under control he would need to participate in some aggressive weight management program. Status: Acute (3) Acute respiratory failure with hypoxia and hypercapnia: Problem details: HE HAS ACUTE ON CHRONIC RESPIRATORY FAILURE, WITH THE MARKED CO2 RETENTION. EVEN WITH THE USE OF BIPAP FOR 6-7 HOURS AT NIGHT HIS PCO2 LEVEL IS NOT IMPROVING MUCH. STRESS THAT HE SHOULD CONTINUE TO USE BIPAP MUCH POSSIBLE, MAY BE FOR A FEW HOURS DURING THE DAYTIME WELL. Status: Acute Time Spent With Patient Time: Total time spent is greater than 50% in coordination of care (as documented) at patient's floor/unit and/or counseling patient: Time with patient: 15 - 24 minutes
[2020-06-21 11:13] LABS: Glucose, Whole Blood 121 mg/dL (60-115)
--- NOTE | 2020-06-21 12:17 | PM.PNCARD ---
Subjective Subjective Date of Service: 06/21/20 <AUGUSTINE Monroe - Last Filed: 06/21/20 12:26> 06/21/20 <Carl Gorman MD - Last Filed: 06/21/20 14:55> Principal diagnosis: CHF, Resp failure, chronic afib, HTN, morbid obesity <AUGUSTINE Monroe - Last Filed: 06/21/20 12:26> Interval history: Cardiology follow up for the above. Seen at 0830. Today he reports that he did not sleep well. Has been trying to use the mask at night. He is still tired. Breathing is comfortable at rest. He continues to notice some sob with activity. He states his breathing is not normal yet. No chest pains, palpitations, lightheaded. Still has some pitting edema. Joaquin in place. <AUGUSTINE Monroe - Last Filed: 06/21/20 12:26> Review of Systems Review of Systems as above <AUGUSTINE Monroe - Last Filed: 06/21/20 12:26> Yes all other systems are reviewed and are negative <AUGUSTINE Monroe - Last Filed: 06/21/20 12:26> Physical Exam Vital Signs: Last Vital Signs Temp 98 F 06/21/20 11:06 Pulse 111 H 06/21/20 11:06 Resp 20 06/21/20 11:06 BP 112/65 06/21/20 11:06 Pulse Ox 90 L 06/21/20 11:06 Body Mass Index 65.7 <AUGUSTINE Monroe - Last Filed: 06/21/20 12:26> Const General: cooperative, alert and awake <AUGUSTINE Monroe - Last Filed: 06/21/20 12:26> Orientation/consciousness: patient oriented x3 <AUGUSTINE Monroe Last Filed: 06/21/20 12:26> Neck Neck: Yes normal visual inspection and Yes no JVD <AUGUSTINE Monroe - Last Filed: 06/21/20 12:26> Resp Other: Unlabored at rest, no cough. Wearing O2 with cannula. Lungs diminished with no clear rales appreciated. <AUGUSTINE Monroe Last Filed: 06/21/20 12:26> Effort & Inspection: normal respiratory effort, able to speak in complete sentences and not labored <Bell Juan TAINA BarrC - Last Filed: 06/21/20 12:26> Cardio Other: Heart tones rapid, irregularly irregular <Bell Martinez TAINA BarrC - Last Filed: 06/21/20 12:26> Heart sounds: S1 normal heart sound present and S2 normal heart sound present <Bell Juan TAINA BarrC - Last Filed: 06/21/20 12:26> GI Inspection: Yes normal to inspection <Bell uJan TAINA BarrC - Last Filed: 06/21/20 12:26> Neuro General: patient oriented x3 <Bell Juan TAINA BarrC - Last Filed: 06/21/20 12:26> Extrem Other: pitting edema still noted in posterior thighs, lower legs, posterior thorax venous stasis changes to skin of lower legs <TANIA MonroeC - Last Filed: 06/21/20 12:26> Results Labs and Meds Result diagrams: : 06/18/20 06:05 06/21/20 06:22 <Bell Juan TAINA BarrC - Last Filed: 06/21/20 12:26> Lab results: Laboratory Results - last 24 hr 06/20/20 06/20/20 06/21/20 16:21 20:11 06:22 VBG pH VBG pCO2 VBG pO2 VBG HCO3 VBG O2 Saturation VBG Base Excess Sodium 140 Potassium 4.4 Chloride 91 L Carbon Dioxide 42 H* Anion Gap 11 L BUN 21 H Creatinine 1.09 Estim Creat Clear Calc 132.0 Estimated GFR > 60 POC Glucose 83 115 Random Glucose 94 Calcium 8.8 Magnesium 1.8 B-Natriuretic Peptide 06/21/20 06/21/20 06/21/20 06:22 06:32 07:17 VBG pH 7.38 VBG pCO2 86 VBG pO2 32 VBG HCO3 51 H VBG O2 Saturation 47.0 VBG Base Excess 20.3 Sodium Potassium Chloride Carbon Dioxide Anion Gap BUN Creatinine Estim Creat Clear Calc Estimated GFR POC Glucose 75 Random Glucose Calcium Magnesium B-Natriuretic Peptide 495 H 06/21/20 06/21/20 08:42 11:06 VBG pH 7.37 VBG pCO2 85 VBG pO2 39 VBG HCO3 49 H VBG O2 Saturation 62.0 VBG Base Excess 19.3 Sodium Potassium Chloride Carbon Dioxide Anion Gap BUN Creatinine Estim Creat Clear Calc Estimated GFR POC Glucose 121 H Random Glucose Calcium Magnesium B-Natriuretic Peptide <AUGUSTINE Monroe - Last Filed: 06/21/20 12:26> Progress Note: A&P Assessment and plan (1) Acute respiratory failure with hypoxia and hypercapnia: Status: Acute <AUGUSTINE Monroe - Last Filed: 06/21/20 12:26> Assessment and Plan: Admit with sob, decompensated acute congestive heart failure with hypoxic and hypercarbic respiratory failure. He has been undergoing diuresis and fluid balance neg 15 liters since admit. Echo 06/18 shows TDS, EF 45-50%, severe LA dilation, RV difficult to assess, dilated IVC. Breathing comfortable at rest and still sob with activity. Has pitting edema, which is looks less, and wheezes on exam. O2 2liters with sat 95%. 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 Continue to diurese with IV lasix drip. Strict I+O monitoring. Close monitoring of electrolyte and kidney function with electrolyte replacement as warranted. Daily weights. CHF education prior to discharge. Will need outpt sleep study. Aldactone added this admit. Pulmonology added Diamox. We will follow <AUGUSTINE Monroe - Last Filed: 06/21/20 12:26> (2) CHF (congestive heart failure): Status: Acute <AUGUSTINE Monroe - Last Filed: 06/21/20 12:26> Assessment and Plan: Patient seen and examined. Case discussed with Bell Barr. Patient diuresing well with Lasix drip. Tolerating Aldactone therapy. Overall 15 L negative balance. Breathing better. Still remains fluid overloaded. Right heart failure syndrome secondary to Pickwickian syndrome and possibly underlying sleep apnea. Continue BiPAP therapy. Continue supportive care. Continue diuresis. Continue to trend BMP and BNP daily. Continue rate control for atrial fibrillation. Continue full oral anticoagulation with Xarelto. Will continue to follow the patient <Carl Gorman MD - Last Filed: 06/21/20 14:55> (3) Obstructive sleep apnea: Problem details: This patient has classical features suggesting that he has obstructive sleep apnea/hypoventilation syndrome <AUGUSTINE Monroe - Last Filed: 06/21/20 12:26> Status: Acute <AUGUSTINE Monroe - Last Filed: 06/21/20 12:26> (4) Afib: Status: Acute <AUGUSTINE Monroe - Last Filed: 06/21/20 12:26> Assessment and Plan: Chronic afib. Does not follow with cardiology prior to admit. Rates elevated this admit. Home Diltiazem stopped due to HF. Home Metoprolol increased from BID up to QID. Recieved Digoxin load and started on daily Dig. Tele shows afib rates still 90s - 105 this am. No report of palpitation. Will increase his Metoprolol to 50mg TID. Home Coumadin stopped due to Labile INRs. Has been started on Xarelto for anticoagulation. Ongoing tele monitoring <AUGUSTINE Monroe - Last Filed: 06/21/20 12:26> (5) Morbid obesity: Problem details: He has been morbidly obese Once the acute condition is under control he would need to participate in some aggressive weight management program. <AUGUSTINE Monroe - Last Filed: 06/21/20 12:26> Status: Acute <AUGUSTINE Monroe - Last Filed: 06/21/20 12:26> Fall Risk Details Current Medications: Current Medications Generic Name Dose Route Start Last Admin Trade Name Freq PRN Reason Stop Dose Admin Acetazolamide 250 mg 06/19/20 09:00 06/21/20 08:53 Acetazolamide 250 Mg Tablet PO 250 mg BID MARIANELA Administration Albuterol/Ipratropium 3 ml 06/19/20 18:25 06/19/20 18:49 Albuterol/Iprat 2.5/0.5mg 3 Ml Ampul.Neb INHALE 3 ml Q4H PRN Administration Wheezing Allopurinol 300 mg 06/19/20 09:00 06/21/20 08:54 Allopurinol 300 Mg Tablet PO 300 mg DAILY MARIANELA Administration Atorvastatin Calcium 20 mg 06/18/20 21:00 06/20/20 20:53 Atorvastatin Calcium 20 Mg Tablet PO 20 mg BEDTIME MARIANELA Administration Digoxin 0.25 mg 06/20/20 09:00 06/21/20 08:54 Digoxin 0.25 Mg Tablet PO 0.25 mg DAILY MARIANELA Administration Furosemide 500 mg/ IV 50 mls @ 0.5 mls/hr 06/16/20 15:30 06/20/20 16:34 Miscellaneous Supplies IVCONT 5 mg/hr .Q24H MARIANELA 0.5 mls/hr Administration 5 MG/HR Insulin Human Lispro 0 unit 06/20/20 11:30 06/21/20 11:18 Insulin Lispro 100 Unit/Ml 3 Ml Vial SUBCUT Not Given QIDACHS [facility] Protocol Lisinopril 5 mg 06/19/20 09:00 06/21/20 08:53 Lisinopril 5 Mg Tablet PO 5 mg DAILY MARIANELA Administration Protocol Lorazepam 0.5 mg 06/18/20 16:34 Lorazepam 0.5 Mg Tablet PO TID PRN Anxiety Magnesium Oxide 400 mg 06/19/20 17:30 06/21/20 08:54 Magnesium Oxide 400 Mg Tablet PO 400 mg BIDPC MARIANELA Administration Metoprolol Tartrate 50 mg 06/21/20 15:00 Metoprolol Tartrate 25 Mg Tablet PO TID [facility] Protocol Nystatin 1 appl 06/16/20 21:00 06/21/20 08:59 Nystatin Powder 15 Gm Bottle TOPICAL 1 appl BID MARIANELA Administration Protocol Ondansetron HCl 4 mg 06/16/20 15:21 Ondansetron Hcl 4 Mg/2 Ml Vial IVPUSH Q8H PRN Nausea Oxycodone HCl 20 mg 06/18/20 09:00 06/21/20 08:53 Oxycodone Hcl Er 10 Mg Tab.Er.12h PO 20 mg BID MARIANELA Administration Oxycodone HCl 10 mg 06/18/20 08:53 06/20/20 12:47 Oxycodone Hcl Immed Release 5 Mg Tablet PO 10 mg Q6H PRN Administration breakthrough pain Pharmacy Consult 1 each 06/16/20 14:54 Consult Rx Perform Med Rec MISCELLANE ONCE PRN Consult order Rivaroxaban 20 mg 06/21/20 09:00 06/21/20 08:54 Rivaroxaban 20 Mg Tablet PO 20 mg DAILY MARIANELA Administration Spironolactone 25 mg 06/18/20 11:15 06/21/20 08:53 Spironolactone 25 Mg Tablet PO 25 mg DAILY MARIANELA Administration Protocol Tramadol HCl 50 mg 06/17/20 11:07 06/18/20 07:56 Tramadol Hcl 50 Mg Tablet PO 50 mg Q6H PRN Administration Pain, Moderate (Pain Scale 4-6 <AUGUSTINE Monroe - Last Filed: 06/21/20 12:26> Time Spent With Patient Time: Total time spent is greater than 50% in coordination of care (as documented) at patient's floor/unit and/or counseling patient: 20 <AUGUSTINE Monroe - Last Filed: 06/21/20 12:26> Time with patient: 15 - 24 minutes <AUGUSTINE Monroe - Last Filed: 06/21/20 12:26>
--- NOTE | 2020-06-21 14:23 | PC.NURSE ---
Patient offered to get oob to recliner and declined multiple times. Patient has two stage II to right buttock. Foam dressing applied with barrier cream to surrounding skin. Educated on importance of mobility and will attempt to get patient out of bed later if patient willing.
--- NOTE | 2020-06-21 14:57 | P.PNIM_ITS ---
Subjective Subjective Date of Service: 06/21/20 Interval History: quite tired swelling improved no chest pain dyspnea improved though not getting out of bed Physical Exam Vital Signs: Vital Signs: Last Vital Signs Temp 98 F 06/21/20 11:06 Pulse 111 H 06/21/20 11:06 Resp 20 06/21/20 11:06 BP 112/65 06/21/20 11:06 Pulse Ox 90 L 06/21/20 11:06 Body Mass Index 65.7 Gen: NAD HEENT: sclera anicteric, moist mucus membranes Neck: supple Lungs: diminished air entry at bases bilaterally Heart: irregular, distant heart sounds due to body habitus Abd: morbidly obese Ext: 2+ bilateral lower extremity edema Skin: warm/well-perfused, chronic venous stasis dermatitis Neuro: alert and oriented x3, no focal findings Psych: appropriate affect Objective Data Current Medications Generic Name Dose Route Start Last Admin Trade Name Freq PRN Reason Stop Dose Admin Acetazolamide 250 mg 06/19/20 09:00 06/21/20 08:53 Acetazolamide 250 Mg Tablet PO 250 mg BID MARIANELA Administration Albuterol/Ipratropium 3 ml 06/19/20 18:25 06/19/20 18:49 Albuterol/Iprat 2.5/0.5mg 3 Ml Ampul.Neb INHALE 3 ml Q4H PRN Administration Wheezing Allopurinol 300 mg 06/19/20 09:00 06/21/20 08:54 Allopurinol 300 Mg Tablet PO 300 mg DAILY MARIANELA Administration Atorvastatin Calcium 20 mg 06/18/20 21:00 06/20/20 20:53 Atorvastatin Calcium 20 Mg Tablet PO 20 mg BEDTIME MARIANELA Administration Digoxin 0.25 mg 06/20/20 09:00 06/21/20 08:54 Digoxin 0.25 Mg Tablet PO 0.25 mg DAILY MARIANELA Administration Furosemide 500 mg/ IV 50 mls @ 0.5 mls/hr 06/16/20 15:30 06/20/20 16:34 Miscellaneous Supplies IVCONT 5 mg/hr .Q24H MARIANELA 0.5 mls/hr Administration 5 MG/HR Insulin Human Lispro 0 unit 06/20/20 11:30 06/21/20 11:18 Insulin Lispro 100 Unit/Ml 3 Ml Vial SUBCUT Not Given QIDACHS MARIANELA Protocol Lisinopril 5 mg 06/19/20 09:00 06/21/20 08:53 Lisinopril 5 Mg Tablet PO 5 mg DAILY MARIANELA Administration Protocol Lorazepam 0.5 mg 06/18/20 16:34 Lorazepam 0.5 Mg Tablet PO TID PRN Anxiety Magnesium Oxide 400 mg 06/19/20 17:30 06/21/20 08:54 Magnesium Oxide 400 Mg Tablet PO 400 mg BIDPC MARIANELA Administration Metoprolol Tartrate 50 mg 06/21/20 15:00 Metoprolol Tartrate 25 Mg Tablet PO TID MARIANELA Protocol Nystatin 1 appl 06/16/20 21:00 06/21/20 08:59 Nystatin Powder 15 Gm Bottle TOPICAL 1 appl BID MARIANELA Administration Protocol Ondansetron HCl 4 mg 06/16/20 15:21 Ondansetron Hcl 4 Mg/2 Ml Vial IVPUSH Q8H PRN Nausea Oxycodone HCl 20 mg 06/18/20 09:00 06/21/20 08:53 Oxycodone Hcl Er 10 Mg Tab.Er.12h PO 20 mg BID MARIANELA Administration Oxycodone HCl 10 mg 06/18/20 08:53 06/20/20 12:47 Oxycodone Hcl Immed Release 5 Mg Tablet PO 10 mg Q6H PRN Administration breakthrough pain Pharmacy Consult 1 each 06/16/20 14:54 Consult Rx Perform Med Rec MISCELLANE ONCE PRN Consult order Rivaroxaban 20 mg 06/21/20 09:00 06/21/20 08:54 Rivaroxaban 20 Mg Tablet PO 20 mg DAILY MARIANELA Administration Spironolactone 25 mg 06/18/20 11:15 06/21/20 08:53 Spironolactone 25 Mg Tablet PO 25 mg DAILY MARIANELA Administration Protocol Tramadol HCl 50 mg 06/17/20 11:07 06/18/20 07:56 Tramadol Hcl 50 Mg Tablet PO 50 mg Q6H PRN Administration Pain, Moderate (Pain Scale 4-6 Labs CBC & Chem 7: 06/18/20 06:05 06/21/20 06:22 Labs: Laboratory Results - last 24 hr 06/20/20 06/20/20 06/21/20 16:21 20:11 06:22 VBG pH VBG pCO2 VBG pO2 VBG HCO3 VBG O2 Saturation VBG Base Excess Sodium 140 Potassium 4.4 Chloride 91 L Carbon Dioxide 42 H* Anion Gap 11 L BUN 21 H Creatinine 1.09 Estim Creat Clear Calc 132.0 Estimated GFR > 60 POC Glucose 83 115 Random Glucose 94 Calcium 8.8 Magnesium 1.8 B-Natriuretic Peptide 06/21/20 06/21/20 06/21/20 06:22 06:32 07:17 VBG pH 7.38 VBG pCO2 86 VBG pO2 32 VBG HCO3 51 H VBG O2 Saturation 47.0 VBG Base Excess 20.3 Sodium Potassium Chloride Carbon Dioxide Anion Gap BUN Creatinine Estim Creat Clear Calc Estimated GFR POC Glucose 75 Random Glucose Calcium Magnesium B-Natriuretic Peptide 495 H 06/21/20 06/21/20 08:42 11:06 VBG pH 7.37 VBG pCO2 85 VBG pO2 39 VBG HCO3 49 H VBG O2 Saturation 62.0 VBG Base Excess 19.3 Sodium Potassium Chloride Carbon Dioxide Anion Gap BUN Creatinine Estim Creat Clear Calc Estimated GFR POC Glucose 121 H Random Glucose Calcium Magnesium B-Natriuretic Peptide Microbiology Microbiology Results: Microbiology 06/16/20 14:15 Blood - Venous Blood Culture - Preliminary No growth after 48 hours. 06/16/20 14:30 Blood - Venous Blood Culture - Preliminary No growth after 48 hours. Assessment and Plan (1) Obstructive sleep apnea: Status: Acute Assessment and Plan: hospital d#6 64yo M with CHF, AF, morbid obesity, DM, HTN, peripheral neuropathy, chronic back pain admitted to ICU with acute hypercapneic respiratory failure and acute decompensated HF, placed on BiPAP + furosemide gtt stepped down to C 06/17/20 # ADHF - continue furosemide gtt, overall negative 15L this admission - continue spironolactone - SGLT2 inhibitor [not on hospital formulary- will prescribe upon discharge empagliflozin 10 mg daily] - strict I/O, trend BNP, monitor BMP/Mg, low-Na diet - continue lisinopril, metoprolol # AF, chronic, with RVR # labile INR; changed AC from warfarin to rivaroxaban- held briefly for blood- tinged Joaquin but cleared up, so will resume - metoprolol, digoxin maintenance # acute/chronic hypercarbic respiratory failure - 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 continue BiPAP at night for 8hr, overnight oximetry to qualify - acetazolamide # morbid obesity - consider outpt bariatrics evaluation # hypoMg - repleted # gout - continue allopurinol # DM2, HbA1c 6 - correction-dose lispro # VTE ppx - rivaroxaban # dispo - likely home with VNA once euvolemic
[2020-06-21] MEDS: Metoprolol Tartrate 25 MG TABLET 50 MG PO ×2 (15:49→22:04)
[2020-06-21] MEDS: Furosemide 500 MG in Container,Empty 0 ML IVCONT (15:50)
[2020-06-21] MEDS: oxyCODONE HCl Immed Release 5 MG TABLET 10 MG PO (16:00)
[2020-06-21 16:29] LABS: Glucose, Whole Blood 106 mg/dL (60-115)
[2020-06-21 19:44] LABS: Venous Blood Gas Refer to POC result
[2020-06-21 19:44] LABS: VBG Base Excess 20.4 mmol/L; VBG HCO3 51 mmol/L (22-26); VBG pCO2 93 mmHg; VBG pH 7.35 (7.32-7.43); VBG pO2 35 mmHg
[2020-06-21 20:17] LABS: Glucose, Whole Blood 121 mg/dL (60-115)
[2020-06-21] MEDS: Atorvastatin Calcium 20 MG TABLET PO (22:04)
[2020-06-22] VITALS (14 sets, daily range): BP systolic 128–168; BP diastolic 62–96; PULSE 78–104; RESP 18–23; TEMP 36.6–36.8; O2SAT 90–94; BMI 65.7
--- NOTE | 2020-06-22 00:22 | PC.RT ---
Patient states doctor told him not to wear the BiPAP for tonight for a test in am. Told patient could not find this in the chart but he states the doctor told him so he does not want it. RN aware
[2020-06-22 06:31] LABS: Venous Blood Gas Refer to POC result
[2020-06-22 06:32] LABS: VBG Base Excess 20.4 mmol/L; VBG HCO3 51 mmol/L (22-26); VBG pCO2 95 mmHg; VBG pH 7.34 (7.32-7.43); VBG pO2 32 mmHg
[2020-06-22 06:57] LABS: B Type Natriuretic Peptide 304 pg/mL (<100)
[2020-06-22 07:09] LABS: Blood Urea Nitrogen 24 mg/dL (9-16); Calcium 8.8 mg/dL (8.4-10.2); Creatinine Clr Calc Pharmacy 117.9; Estimated Glomerular Filt Rate 60; Glucose Random 103 mg/dL (60-115); Magnesium 1.9 mg/dL (1.6-2.6)
[2020-06-22 07:56] LABS: Anion Gap 11 (12-20); Carbon Dioxide 41 mmol/L (22-29); Chloride 92 mmol/L (96-108); Potassium 4.6 mmol/L (3.3-5.1); Sodium 139 mmol/L (135-145)
[2020-06-22] MEDS: Magnesium Oxide 400 MG TABLET PO ×2 (09:07→16:47)
[2020-06-22] MEDS: allopurinoL 300 MG TABLET PO (09:07)
[2020-06-22] MEDS: acetaZOLAMIDE 250 MG TABLET PO ×2 (09:07→21:16)
[2020-06-22] MEDS: Digoxin 0.25 MG TABLET PO (09:08)
[2020-06-22] MEDS: Rivaroxaban 20 MG TABLET PO (09:08)
[2020-06-22] MEDS: Spironolactone 25 MG TABLET PO (09:09)
[2020-06-22] MEDS: oxyCODONE HCl ER 10 MG TAB.ER.12H 20 MG PO ×2 (09:09→21:16)
[2020-06-22] MEDS: Metoprolol Tartrate 25 MG TABLET 50 MG PO ×3 (09:11→21:16)
[2020-06-22] MEDS: lisinopriL 5 MG TABLET PO (09:12)
[2020-06-22] MEDS: Nystatin Powder 15 GM BOTTLE 1 APPL TOPICAL ×2 (09:13→21:22)
--- NOTE | 2020-06-22 10:12 | PM.PNPUL ---
Subjective Subjective Date of Service: 06/22/20 Principal diagnosis: CHF, Resp failure, chronic afib, HTN, morbid obesity Interval history: This gentleman continues to be short of breath, intermittently sleepy and seems to be somewhat more lethargic today. He did not use BiPAP last night because overnight oximetry recording was in the plans. Blood gases remain grossly abnormal, with Ph 7.34 and pCO2 93. Objective Data Labs CBC & Chem 7: 06/18/20 06:05 06/22/20 06:18 Labs: Laboratory Results - last 24 hr 06/21/20 06/21/20 06/21/20 11:06 16:00 19:39 VBG pH 7.35 VBG pCO2 93 VBG pO2 35 VBG HCO3 51 H VBG O2 Saturation 46.0 VBG Base Excess 20.4 Sodium Potassium Chloride Carbon Dioxide Anion Gap BUN Creatinine Estim Creat Clear Calc Estimated GFR POC Glucose 121 H 106 Random Glucose Calcium Magnesium B-Natriuretic Peptide 06/21/20 06/22/20 06/22/20 20:09 06:18 06:18 VBG pH VBG pCO2 VBG pO2 VBG HCO3 VBG O2 Saturation VBG Base Excess Sodium 139 Potassium 4.6 Chloride 92 L Carbon Dioxide 41 H* Anion Gap 11 L BUN 24 H Creatinine 1.22 Estim Creat Clear Calc 117.9 Estimated GFR 60 POC Glucose 121 H Random Glucose 103 Calcium 8.8 Magnesium 1.9 B-Natriuretic Peptide 304 H 06/22/20 06:24 VBG pH 7.34 VBG pCO2 95 VBG pO2 32 VBG HCO3 51 H VBG O2 Saturation 45.0 VBG Base Excess 20.4 Sodium Potassium Chloride Carbon Dioxide Anion Gap BUN Creatinine Estim Creat Clear Calc Estimated GFR POC Glucose Random Glucose Calcium Magnesium B-Natriuretic Peptide Microbiology Microbiology Results: Microbiology 06/16/20 14:30 Blood - Venous Blood Culture - Final No growth after 5 days. 06/16/20 14:15 Blood - Venous Blood Culture - Final No growth after 5 days. Physical Exam Vital Signs: Vital Signs: Last Vital Signs Temp 98.1 F 06/22/20 07:49 Pulse 104 H 06/22/20 09:08 Resp 22 H 06/22/20 07:49 BP 168/72 H 06/22/20 09:09 Pulse Ox 92 06/22/20 07:49 Body Mass Index 65.7 Const: General: comfortable (but somewhat sleepy . ), no acute distress, alert and awake Orientation/consciousness: patient oriented x3 HENMT: Head: Yes normal to inspection General nose exam: No nasal polyps present and No nasal discharge present Face and sinus: Yes sinuses nontender Mouth: oropharynx abnormals (crowded , mallampatti class=4 ) Throat: Yes posterior oropharynx normal Eyes: General: appearance normal, both eyes and all related structures Neck: Neck: Yes normal visual inspection, Yes no lymphadenopathy, Yes trachea midline, Yes no JVD and Yes other (neck is extremely obese, size=20 ) Thyroid: Thyroid normal Chest: Other: Is very obese chest wall but no local tenderness Resp: Other: Breath sounds are very distant, a few scattered expiratory wheezes, also fine inspiratory crackles over the lower lobes. Cardio: Palpation: normal PMI Rate: regular rate Rhythm: regular rhythm Heart sounds: no gallops and no murmurs GI: Other: Extremely obese and protuberant abdomen. Palpation (GI): Soft to palpation, Tenderness to palpation present (GI), No hepatosplenomegaly present and Palpable mass present Auscultation: normal bowel sounds Skin: General skin exam: no rashes or lesions noted Neuro: General: patient oriented x3 and no focal motor deficits Cranial nerves: Yes CN's II-XII intact bilaterally Extrem: General: Yes normal to inspection, Yes no calf tenderness and Yes edema (Chronic stasis edema of the legs is present.) Psych: Speech and movement: Normal speech and movement present Assessment and Plan Assessment and plan (1) Obstructive sleep apnea: Problem details: CLINICALLY THERE IS NO DOUBT THAT HE HAS RATHER SEVERE DEGREE OF OBSTRUCTIVE SLEEP APNEA. IN ADDITION HE ALSO HAS HYPOVENTILATION SYNDROME, RESULTING IN SEVERE RESPIRATORY FAILURE Status: Acute (2) Acute respiratory failure with hypoxia and hypercapnia: Problem details: HE HAS ACUTE ON CHRONIC RESPIRATORY FAILURE, WITH THE MARKED CO2 RETENTION. EVEN WITH THE USE OF BIPAP FOR 6-7 HOURS AT NIGHT HIS PCO2 LEVEL IS NOT IMPROVING MUCH. STRESS THAT HE SHOULD CONTINUE TO USE BIPAP MUCH POSSIBLE.HE SHOULD ACTUALLY STAY ON BIPAP, CONTINUOUSLY , AND REMOVE IT ONLY FOR SHORT INTERVALS DURING THE DAY TIME . I AM TALKING TO JACQUELINE CARDONA , AND HE WILL QUALIFY FOR A HOME VENTILATOR UNIT ( TRILOGY ) BEFORE GOPING HOME , HE WILL NEED TO GO TO A PULM ,. REHAB FACILITY FOR A FEW WEEKS . I HAD A DETAILED DISCUSSION WITH HIM AND HIS GIRL FRIEND , THIS AM . INCENTIVE SPIROMETRY ORDERED FOR DEEP BREATHING EXERCISES . Status: Acute (3) Morbid obesity: Problem details: HE IS MORBIDLY OBESE Once the acute condition is under control he would need to participate in some aggressive weight management program. Status: Acute (4) CHF (congestive heart failure): Problem details: PT STILL ON IV FUROSEMIDE , MAY BE CHANGED TO PO . Status: Acute Time Spent With Patient Time: Total time spent is greater than 50% in coordination of care (as documented) at patient's floor/unit and/or counseling patient: Time with patient: 25 - 35 minutes
--- NOTE | 2020-06-22 10:35 | P.PNCA_ITS ---
Subjective Subjective Date of Service: 06/22/20 Principal diagnosis: CHF, Resp failure, chronic afib, HTN, morbid obesity Interval history: Patient has diuresed well a total of 17 L since admission. His creatinine is rising slightly. His BNP has improved as well. Overnight he did not get BiPAP as there was study performed for oxygen desaturation. Patient is feeling tired this morning. Denies any palpitations. Heart rate remains in atrial fibrillation and 90s. Review of Systems Constitutional: Reports daytime sleepiness, Reports fatigue and Reports malaise Cardiovascular: Reports no additional cardiovascular complaints Respiratory: Reports no additional respiratory complaints Gastrointestinal: Reports no additional gastrointestinal complaints Reports system reviewed and no additional complaints, except as documented Endocrine: Reports no additional endocrine complaints and Reports fatigue Physical Exam Vital Signs: Last Vital Signs Temp 98.1 F 06/22/20 07:49 Pulse 104 H 06/22/20 09:08 Resp 22 H 06/22/20 07:49 BP 168/72 H 06/22/20 09:09 Pulse Ox 92 06/22/20 07:49 Body Mass Index 65.7 Const General: alert and awake Nutritional Appearance: obese morbidly obese Orientation/consciousness: patient oriented x3 Neck Neck: Yes trachea midline, Yes supple and Yes no JVD Resp Effort & Inspection: normal respiratory effort Auscultation: no rales and diminished lung sounds Cardio Rhythm: abnormal rhythm irregularly irregular Heart sounds: S1 normal heart sound present and S2 normal heart sound present Skin General skin exam: no rashes or lesions noted Neuro General: patient oriented x3 Extrem General: No clubbing, No cyanosis, Yes edema and Yes venous stasis dermatitis Results Labs and Meds Result diagrams: 06/18/20 06:05 06/22/20 06:18 Lab results: Laboratory Results - last 24 hr 06/21/20 06/21/20 06/21/20 11:06 16:00 19:39 VBG pH 7.35 VBG pCO2 93 VBG pO2 35 VBG HCO3 51 H VBG O2 Saturation 46.0 VBG Base Excess 20.4 Sodium Potassium Chloride Carbon Dioxide Anion Gap BUN Creatinine Estim Creat Clear Calc Estimated GFR POC Glucose 121 H 106 Random Glucose Calcium Magnesium B-Natriuretic Peptide 06/21/20 06/22/20 06/22/20 20:09 06:18 06:18 VBG pH VBG pCO2 VBG pO2 VBG HCO3 VBG O2 Saturation VBG Base Excess Sodium 139 Potassium 4.6 Chloride 92 L Carbon Dioxide 41 H* Anion Gap 11 L BUN 24 H Creatinine 1.22 Estim Creat Clear Calc 117.9 Estimated GFR 60 POC Glucose 121 H Random Glucose 103 Calcium 8.8 Magnesium 1.9 B-Natriuretic Peptide 304 H 06/22/20 06:24 VBG pH 7.34 VBG pCO2 95 VBG pO2 32 VBG HCO3 51 H VBG O2 Saturation 45.0 VBG Base Excess 20.4 Sodium Potassium Chloride Carbon Dioxide Anion Gap BUN Creatinine Estim Creat Clear Calc Estimated GFR POC Glucose Random Glucose Calcium Magnesium B-Natriuretic Peptide Progress Note: A&P Assessment and plan (1) CHF (congestive heart failure): Problem details: PT STILL ON IV FUROSEMIDE , MAY BE CHANGED TO PO . Status: Acute Assessment and Plan: Congestive heart failure, secondary to Pickwickian syndrome/hypoventilation syndrome related to morbid obesity and possibly sleep apnea. Agree with BiPAP therapy at home to improve his respiratory status and reduce pulmonary vaso constriction as well as pulmonary hypertension and reduce recurrent heart failure. Has diuresed well, creatinine is rising slightly. Will switch to p.o. diuretics with Bumex 2 mg p.o. b.i.d.. CHF education should be provided. Low- salt diet. Daily weight monitoring. Follow up as outpatient, patient is agreeable to follow with us in the clinic. Pulmonary support as an outpatient also needs to be pursued. In the long run would benefit from aggressive weight loss program. (2) Afib: Status: Acute Assessment and Plan: Chronic atrial fibrillation, currently adequately rate controlled. Continue p.o. digoxin as well as metoprolol. Can change metoprolol to 100 mg b.i.d. for better compliance. Continue full oral anticoagulation, currently on Xarelto 20 mg daily. Will follow up as outpatient after Holter monitor. Thank you for allowing us to partake in his care. Will sign of the case. Fall Risk Details Current Medications: Current Medications Generic Name Dose Route Start Last Admin Trade Name Freq PRN Reason Stop Dose Admin Acetazolamide 250 mg 06/19/20 09:00 06/22/20 09:07 Acetazolamide 250 Mg Tablet PO 250 mg BID MARIANELA Administration Albuterol/Ipratropium 3 ml 06/19/20 18:25 06/19/20 18:49 Albuterol/Iprat 2.5/0.5mg 3 Ml Ampul.Neb INHALE 3 ml Q4H PRN Administration Wheezing Allopurinol 300 mg 06/19/20 09:00 06/22/20 09:07 Allopurinol 300 Mg Tablet PO 300 mg DAILY MARIANELA Administration Atorvastatin Calcium 20 mg 06/18/20 21:00 06/21/20 22:04 Atorvastatin Calcium 20 Mg Tablet PO 20 mg BEDTIME MARIANELA Administration Digoxin 0.25 mg 06/20/20 09:00 06/22/20 09:08 Digoxin 0.25 Mg Tablet PO 0.25 mg DAILY MARIANELA Administration Furosemide 500 mg/ IV 50 mls @ 0.5 mls/hr 06/16/20 15:30 06/21/20 15:50 Miscellaneous Supplies IVCONT 5 mg/hr .Q24H MARIANELA 0.5 mls/hr Administration 5 MG/HR Insulin Human Lispro 0 unit 06/20/20 11:30 06/22/20 08:44 Insulin Lispro 100 Unit/Ml 3 Ml Vial SUBCUT Not Given QIDACHS [facility] Protocol Lisinopril 5 mg 06/19/20 09:00 06/22/20 09:12 Lisinopril 5 Mg Tablet PO 5 mg DAILY MARIANELA Administration Protocol Lorazepam 0.5 mg 06/18/20 16:34 Lorazepam 0.5 Mg Tablet PO TID PRN Anxiety Magnesium Oxide 400 mg 06/19/20 17:30 06/22/20 09:07 Magnesium Oxide 400 Mg Tablet PO 400 mg BIDPC MARIANELA Administration Metoprolol Tartrate 50 mg 06/21/20 15:00 06/22/20 09:11 Metoprolol Tartrate 25 Mg Tablet PO 50 mg TID MARIANELA Administration Protocol Nystatin 1 appl 06/16/20 21:00 06/22/20 09:13 Nystatin Powder 15 Gm Bottle TOPICAL 1 appl BID MARIANELA Administration Protocol Ondansetron HCl 4 mg 06/16/20 15:21 Ondansetron Hcl 4 Mg/2 Ml Vial IVPUSH Q8H PRN Nausea Oxycodone HCl 20 mg 06/18/20 09:00 06/22/20 09:09 Oxycodone Hcl Er 10 Mg Tab.Er.12h PO 20 mg BID MARIANELA Administration Oxycodone HCl 10 mg 06/18/20 08:53 06/21/20 16:00 Oxycodone Hcl Immed Release 5 Mg Tablet PO 10 mg Q6H PRN Administration breakthrough pain Pharmacy Consult 1 each 06/16/20 14:54 Consult Rx Perform Med Rec MISCELLANE ONCE PRN Consult order Rivaroxaban 20 mg 06/21/20 09:00 06/22/20 09:08 Rivaroxaban 20 Mg Tablet PO 20 mg DAILY MARIANELA Administration Spironolactone 25 mg 06/18/20 11:15 06/22/20 09:09 Spironolactone 25 Mg Tablet PO 25 mg DAILY MARIANELA Administration Protocol Tramadol HCl 50 mg 06/17/20 11:07 06/18/20 07:56 Tramadol Hcl 50 Mg Tablet PO 50 mg Q6H PRN Administration Pain, Moderate (Pain Scale 4-6 Time Spent With Patient Time: Total time spent is greater than 50% in coordination of care (as documented) at patient's floor/unit and/or counseling patient: Time with patient: 25 - 35 minutes
--- NOTE | 2020-06-22 11:06 | MHC.CM.PN ---
Per ROUNDS discussion, Patient is not yet medically cleared for dc (IV Lasix, 3.5 L O2, ? need for Trilogy home ventilator).PT recommends dc to home and CM will follow for possible need to adjust the dc plan.
[2020-06-22 11:29] LABS: Glucose, Whole Blood 103 mg/dL (60-115)
[2020-06-22 11:51] LABS: Glucose, Whole Blood 143 mg/dL (60-115)
--- NOTE | 2020-06-22 12:28 | P.PNIM_ITS ---
Subjective Subjective Date of Service: 06/22/20 Interval History: tired; had overnight oximetry test swelling improved negative over 17L at this point BUN/Cr increasing Physical Exam Vital Signs: Vital Signs: Last Vital Signs Temp 98.1 F 06/22/20 07:49 Pulse 104 H 06/22/20 09:08 Resp 23 H 06/22/20 10:49 BP 168/72 H 06/22/20 11:03 Pulse Ox 92 06/22/20 07:49 Body Mass Index 65.7 Gen: NAD HEENT: sclera anicteric, moist mucus membranes Neck: supple Lungs: diminished air entry at bases bilaterally Heart: irregular, somewhat rapid, distant heart sounds due to body habitus Abd: morbidly obese Ext: 1+ bilateral lower extremity edema Skin: warm/well-perfused, chronic venous stasis dermatitis Neuro: alert and oriented x3, no focal findings Psych: appropriate affect Objective Data Current Medications Generic Name Dose Route Start Last Admin Trade Name Freq PRN Reason Stop Dose Admin Acetazolamide 250 mg 06/19/20 09:00 06/22/20 09:07 Acetazolamide 250 Mg Tablet PO 250 mg BID MARIANELA Administration Albuterol/Ipratropium 3 ml 06/19/20 18:25 06/19/20 18:49 Albuterol/Iprat 2.5/0.5mg 3 Ml Ampul.Neb INHALE 3 ml Q4H PRN Administration Wheezing Allopurinol 300 mg 06/19/20 09:00 06/22/20 09:07 Allopurinol 300 Mg Tablet PO 300 mg DAILY MARIANELA Administration Atorvastatin Calcium 20 mg 06/18/20 21:00 06/21/20 22:04 Atorvastatin Calcium 20 Mg Tablet PO 20 mg BEDTIME MARIANELA Administration Bumetanide 2 mg 06/22/20 17:00 Bumetanide 1 Mg Tablet PO BID@0800,1700 MARIANELA Protocol Digoxin 0.25 mg 06/20/20 09:00 06/22/20 09:08 Digoxin 0.25 Mg Tablet PO 0.25 mg DAILY MARIANELA Administration Insulin Human Lispro 0 unit 06/20/20 11:30 06/22/20 11:37 Insulin Lispro 100 Unit/Ml 3 Ml Vial SUBCUT Not Given QIDACHS MARIANELA Protocol Lisinopril 5 mg 06/19/20 09:00 06/22/20 09:12 Lisinopril 5 Mg Tablet PO 5 mg DAILY MARIANELA Administration Protocol Lorazepam 0.5 mg 06/18/20 16:34 Lorazepam 0.5 Mg Tablet PO TID PRN Anxiety Magnesium Oxide 400 mg 06/19/20 17:30 06/22/20 09:07 Magnesium Oxide 400 Mg Tablet PO 400 mg BIDPC MARIANELA Administration Metoprolol Tartrate 50 mg 06/21/20 15:00 06/22/20 09:11 Metoprolol Tartrate 25 Mg Tablet PO 50 mg TID MARIANELA Administration Protocol Nystatin 1 appl 06/16/20 21:00 06/22/20 09:13 Nystatin Powder 15 Gm Bottle TOPICAL 1 appl BID MARIANELA Administration Protocol Ondansetron HCl 4 mg 06/16/20 15:21 Ondansetron Hcl 4 Mg/2 Ml Vial IVPUSH Q8H PRN Nausea Oxycodone HCl 20 mg 06/18/20 09:00 06/22/20 09:09 Oxycodone Hcl Er 10 Mg Tab.Er.12h PO 20 mg BID MARIANELA Administration Oxycodone HCl 10 mg 06/18/20 08:53 06/21/20 16:00 Oxycodone Hcl Immed Release 5 Mg Tablet PO 10 mg Q6H PRN Administration breakthrough pain Pharmacy Consult 1 each 06/16/20 14:54 Consult Rx Perform Med Rec MISCELLANE ONCE PRN Consult order Rivaroxaban 20 mg 06/21/20 09:00 06/22/20 09:08 Rivaroxaban 20 Mg Tablet PO 20 mg DAILY MARIANELA Administration Spironolactone 25 mg 06/18/20 11:15 06/22/20 09:09 Spironolactone 25 Mg Tablet PO 25 mg DAILY MARIANELA Administration Protocol Labs CBC & Chem 7: 06/18/20 06:05 06/22/20 06:18 Labs: Laboratory Results - last 24 hr 06/21/20 06/21/20 06/21/20 16:00 19:39 20:09 VBG pH 7.35 VBG pCO2 93 VBG pO2 35 VBG HCO3 51 H VBG O2 Saturation 46.0 VBG Base Excess 20.4 Sodium Potassium Chloride Carbon Dioxide Anion Gap BUN Creatinine Estim Creat Clear Calc Estimated GFR POC Glucose 106 121 H Random Glucose Calcium Magnesium B-Natriuretic Peptide 06/22/20 06/22/20 06/22/20 06:18 06:18 06:24 VBG pH 7.34 VBG pCO2 95 VBG pO2 32 VBG HCO3 51 H VBG O2 Saturation 45.0 VBG Base Excess 20.4 Sodium 139 Potassium 4.6 Chloride 92 L Carbon Dioxide 41 H* Anion Gap 11 L BUN 24 H Creatinine 1.22 Estim Creat Clear Calc 117.9 Estimated GFR 60 POC Glucose Random Glucose 103 Calcium 8.8 Magnesium 1.9 B-Natriuretic Peptide 304 H 06/22/20 06/22/20 07:25 11:29 VBG pH VBG pCO2 VBG pO2 VBG HCO3 VBG O2 Saturation VBG Base Excess Sodium Potassium Chloride Carbon Dioxide Anion Gap BUN Creatinine Estim Creat Clear Calc Estimated GFR POC Glucose 103 143 H Random Glucose Calcium Magnesium B-Natriuretic Peptide Microbiology Microbiology Results: Microbiology 06/16/20 14:30 Blood - Venous Blood Culture - Final No growth after 5 days. 06/16/20 14:15 Blood - Venous Blood Culture - Final No growth after 5 days. Assessment and Plan (1) Obstructive sleep apnea: Status: Acute Assessment and Plan: hospital d#7 64yo M with CHF, AF, morbid obesity, DM, HTN, peripheral neuropathy, chronic back pain admitted to ICU with acute hypercapneic respiratory failure and acute decompensated HF, placed on BiPAP + furosemide gtt stepped down to [facility] 06/17/20 # ADHF - change furosemide gtt to PO bumetanide; - continue spironolactone - SGLT2 inhibitor not on hospital formulary; will prescribe upon discharge emp agliflozin 10 mg daily - strict I/O, trend BNP, monitor BMP/Mg, low-Na diet - continue lisinopril, metoprolol - outpt Cardiology f/u # AF, chronic, with RVR # labile INR; changed AC from warfarin to rivaroxaban- held briefly for blood- tinged Joaquin but cleared up and resumed without incident - metoprolol, digoxin # acute/chronic hypercarbic respiratory failure - undoubetdly OHS/NATI with CO2 retention. per Pulmonology will qualify for home Trilogy ventilator. should go to pulm rehab before going home, though - acetazolamide # morbid obesity - consider outpt bariatrics evaluation # hypoMg - repleted # gout - continue allopurinol # DM2, HbA1c 6 - correction-dose lispro # VTE ppx - rivaroxaban # dispo - STR for pulm rehab
--- NOTE | 2020-06-22 13:00 | MHC.CM.PN ---
CM met with Patient and family to discuss PT's recommendation for Inpatient Pulmonary Rehab. Patient was agreeable to multiple referral to determine his options for dc. CM will follow.
--- NOTE | 2020-06-22 15:33 | PC.NURSE ---
PT REMOVED FROM BIPAP PER REQUEST IN ORDER TO HAVE SOME NOURISHMENT. PLACED ON 3.5L NC. INSTRUCTED ON USE OF INCENTIVE SPIROMETER WHILE AWAKE AND OFF BIPAP. TOLERAted fair.
[2020-06-22] MEDS: Bumetanide 1 MG TABLET 2 MG PO (16:47)
[2020-06-22 16:54] LABS: Glucose, Whole Blood 97 mg/dL (60-115)
--- NOTE | 2020-06-22 17:18 | PC.NURSE ---
PT ASSISTED OOB TO RECLINER WITH 2 ASSIST. INC STOOL. TOLERATING WELL
[2020-06-22 20:23] LABS: Glucose, Whole Blood 118 mg/dL (60-115)
[2020-06-22] MEDS: Atorvastatin Calcium 20 MG TABLET PO (21:16)
[2020-06-23] VITALS (14 sets, daily range): BP systolic 84–146; BP diastolic 54–82; PULSE 73–103; RESP 19–22; TEMP 36.4–37.1; O2SAT 91–96; BMI 64.8
[2020-06-23 06:43] LABS: Venous Blood Gas Refer to POC result
[2020-06-23 06:45] LABS: VBG Base Excess 13.7 mmol/L; VBG HCO3 41 mmol/L (22-26); VBG pCO2 64 mmHg; VBG pH 7.41 (7.32-7.43); VBG pO2 49 mmHg
[2020-06-23 07:28] LABS: B Type Natriuretic Peptide 321 pg/mL (<100)
[2020-06-23 07:33] LABS: Glucose, Whole Blood 98 mg/dL (60-115)
[2020-06-23 07:37] LABS: Anion Gap 12 (12-20); Blood Urea Nitrogen 25 mg/dL (9-16); Calcium 8.6 mg/dL (8.4-10.2); Carbon Dioxide 35 mmol/L (22-29); Chloride 95 mmol/L (96-108); Creatinine Clr Calc Pharmacy 141.2; Estimated Glomerular Filt Rate > 60; Glucose Random 95 mg/dL (60-115); Magnesium 1.7 mg/dL (1.6-2.6); Potassium 3.7 mmol/L (3.3-5.1); Sodium 138 mmol/L (135-145)
[2020-06-23] MEDS: Metoprolol Tartrate 25 MG TABLET 50 MG PO (08:30)
[2020-06-23] MEDS: Spironolactone 25 MG TABLET PO (08:31)
[2020-06-23] MEDS: lisinopriL 5 MG TABLET PO (08:31)
[2020-06-23] MEDS: Bumetanide 1 MG TABLET 2 MG PO ×2 (08:31→16:59)
[2020-06-23] MEDS: oxyCODONE HCl ER 10 MG TAB.ER.12H 20 MG PO ×2 (08:31→22:36)
[2020-06-23] MEDS: acetaZOLAMIDE 250 MG TABLET PO ×2 (08:31→22:35)
[2020-06-23] MEDS: Magnesium Oxide 400 MG TABLET PO ×2 (08:32→16:59)
[2020-06-23] MEDS: allopurinoL 300 MG TABLET PO (08:32)
[2020-06-23] MEDS: Digoxin 0.25 MG TABLET PO (08:32)
[2020-06-23] MEDS: Rivaroxaban 20 MG TABLET PO (08:32)
[2020-06-23] MEDS: Nystatin Powder 15 GM BOTTLE 1 APPL TOPICAL ×2 (08:33→22:42)
--- NOTE | 2020-06-23 09:58 | P.PNPL_ITS ---
Subjective Subjective Date of Service: 06/23/20 Principal diagnosis: CHF, Resp failure, chronic afib, HTN, morbid obesity Interval history: Patient seen this morning for pulmonary follow-up. He claims to be relatively better today. Clinically seems to be more alert. He did use BiPAP for about 8 hours last night, getting used to it. Still remains moderately weak and deconditioned. Objective Data Labs CBC & Chem 7: 06/18/20 06:05 06/23/20 06:28 Labs: Laboratory Results - last 24 hr 06/22/20 06/22/20 06/22/20 07:25 11:29 16:47 VBG pH VBG pCO2 VBG pO2 VBG HCO3 VBG O2 Saturation VBG Base Excess Sodium Potassium Chloride Carbon Dioxide Anion Gap BUN Creatinine Estim Creat Clear Calc Estimated GFR POC Glucose 103 143 H 97 Random Glucose Calcium Magnesium B-Natriuretic Peptide 06/22/20 06/23/20 06/23/20 20:12 06:28 06:28 VBG pH VBG pCO2 VBG pO2 VBG HCO3 VBG O2 Saturation VBG Base Excess Sodium 138 Potassium 3.7 Chloride 95 L Carbon Dioxide 35 H Anion Gap 12 BUN 25 H Creatinine 1.01 Estim Creat Clear Calc 141.2 Estimated GFR > 60 POC Glucose 118 H Random Glucose 95 Calcium 8.6 Magnesium 1.7 B-Natriuretic Peptide 321 H 06/23/20 06/23/20 06:38 07:24 VBG pH 7.41 VBG pCO2 64 VBG pO2 49 VBG HCO3 41 H VBG O2 Saturation 77.0 VBG Base Excess 13.7 Sodium Potassium Chloride Carbon Dioxide Anion Gap BUN Creatinine Estim Creat Clear Calc Estimated GFR POC Glucose 98 Random Glucose Calcium Magnesium B-Natriuretic Peptide Microbiology Microbiology Results: Microbiology 06/16/20 14:30 Blood - Venous Blood Culture - Final No growth after 5 days. 06/16/20 14:15 Blood - Venous Blood Culture - Final No growth after 5 days. Physical Exam Vital Signs: Vital Signs: Last Vital Signs Temp 98.7 F 06/23/20 08:00 Pulse 85 06/23/20 08:32 Resp 20 06/23/20 08:00 BP 135/70 06/23/20 08:31 Pulse Ox 93 06/23/20 08:00 Body Mass Index 64.8 Const: Other: He is morbidly obese, generally quite weak, mostly in bed and recliner. General: comfortable, no acute distress, alert and awake Orientation/consciousness: patient oriented x3 HENMT: Head: Yes normal to inspection General nose exam: No nasal polyps p resent and No nasal discharge present Face and sinus: Yes sinuses nontender Mouth: oropharynx abnormals (Oropharynx very crowded, Mallampati class 4) Throat: Yes posterior oropharynx normal Eyes: General: appearance normal, both eyes and all related structures Neck: Neck: Yes normal visual inspection, Yes no lymphadenopathy, Yes trachea midline, Yes no JVD and Yes other (Neck is moderately obese, neck size 20 inch.) Thyroid: Thyroid normal Chest: Other: Extremely thick chest wall but no local tenderness. Resp: Other: Breath sounds are very diminished especially over the bases, A few expiratory wheezes are heard and also a few inspiratory crackles over the basilar areas. Cardio: Palpation: PMI not normal (Not palpable) Rate: regular rate Rhythm: regular rhythm Heart sounds: no gallops and no murmurs GI: Palpation (GI): Soft to palpation, nontender, No hepatosplenomegaly present, no masses and Other GI palpation findings present (Extremely obese and pendulous abdominal wall) Auscultation: normal bowel sounds Back/Spine/Pelvis: Thoracic/Lumbar Spine: thoracic and lumbar spine normal to inspection Skin: General skin exam: no rashes or lesions noted Neuro: General: patient oriented x3 and no focal motor deficits (But marked generalized weakness is present) Cranial nerves: Yes CN's II-XII intact bilaterally Extrem: General: Yes normal to inspection, Yes no clubbing, cyanosis or edema, Yes no calf tenderness and Yes venous stasis dermatitis Psych: Speech and movement: Normal speech and movement present Assessment and Plan Assessment and plan (1) Morbid obesity: Problem details: HE IS MORBIDLY OBESE Once the acute condition is under control he would need to participate in some aggressive weight management program. Status: Acute (2) Hypercapnic respiratory failure: Status: Acute (3) Acute respiratory failure with hypoxia and hypercapnia: Problem details: HE HAS ACUTE ON CHRONIC RESPIRATORY FAILURE, WITH THE MARKED CO2 RETENTION. With INCREASED USE OF BIPAP FOR ABOUT 7-8 HOURS LAST NIGHT, HIS BLOOD GASES ARE MUCH IMPROVED, ( PH 7.41 PCO2 64 BICARB = 41 ) THIS SHOWS THAT HIS MAINSTAY TREATMENT IS GOING TO BE USE OF VENTILATORY SUPPORT AT LEAST FOR 8 HOURS EVERY DAY. STRESSED THAT HE SHOULD CONTINUE TO USE BIPAP MUCH POSSIBLE. I AM TALKING TO JACQUELINE CARDONA , AND HE WILL QUALIFY FOR A HOME VENTILATOR UNIT ( TRILOGY ) BEFORE GOING HOME , HE WILL NEED TO GO TO A PULM ,.REHAB FACILITY FOR A FEW WEEKS . INCENTIVE SPIROMETRY ORDERED FOR DEEP BREATHING EXERCISES . Status: Acute Time Spent With Patient Time: Total time spent is greater than 50% in coordination of care (as documented) at patient's floor/unit and/or counseling patient: Time with patient: 15 - 24 minutes
[2020-06-23] MEDS: Metoprolol Tartrate 25 MG TABLET 100 MG PO ×2 (10:55→22:37)
[2020-06-23 11:02] LABS: COVID-19 Test Negative (Negative)
[2020-06-23 11:42] LABS: Glucose, Whole Blood 97 mg/dL (60-115)
--- NOTE | 2020-06-23 12:16 | P.PNIM_ITS ---
Subjective Subjective Date of Service: 06/23/20 Interval History: was on BiPAP overnight still feels tired though better than yesterday no chest pain HR better controlled Physical Exam Vital Signs: Vital Signs: Last Vital Signs Temp 98.7 F 06/23/20 12:00 Pulse 103 H 06/23/20 12:00 Resp 20 06/23/20 12:00 BP 142/57 H 06/23/20 12:00 Pulse Ox 96 06/23/20 12:00 Body Mass Index 64.8 Gen: NAD HEENT: sclera anicteric, moist mucus membranes Neck: supple Lungs: diminished air entry at bases bilaterally Heart: irregular, distant heart sounds due to body habitus Abd: morbidly obese Ext: 1+ bilateral lower extremity edema Skin: warm/well-perfused, chronic venous stasis dermatitis Neuro: alert and oriented x3, no focal findings Psych: appropriate affect Objective Data Current Medications Generic Name Dose Route Start Last Admin Trade Name Freq PRN Reason Stop Dose Admin Acetazolamide 250 mg 06/19/20 09:00 06/23/20 08:31 Acetazolamide 250 Mg Tablet PO 250 mg BID MARIANELA Administration Albuterol/Ipratropium 3 ml 06/19/20 18:25 06/19/20 18:49 Albuterol/Iprat 2.5/0.5mg 3 Ml Ampul.Neb INHALE 3 ml Q4H PRN Administration Wheezing Allopurinol 300 mg 06/19/20 09:00 06/23/20 08:32 Allopurinol 300 Mg Tablet PO 300 mg DAILY MARIANELA Administration Atorvastatin Calcium 20 mg 06/18/20 21:00 06/22/20 21:16 Atorvastatin Calcium 20 Mg Tablet PO 20 mg BEDTIME MARIANELA Administration Bumetanide 2 mg 06/22/20 17:00 06/23/20 08:31 Bumetanide 1 Mg Tablet PO 2 mg BID@0800,1700 MARIANELA Administration Protocol Digoxin 0.25 mg 06/20/20 09:00 06/23/20 08:32 Digoxin 0.25 Mg Tablet PO 0.25 mg DAILY MARIANELA Administration Insulin Human Lispro 0 unit 06/20/20 11:30 06/23/20 11:41 Insulin Lispro 100 Unit/Ml 3 Ml Vial SUBCUT Not Given QIDACHS MARIANELA Protocol Lisinopril 5 mg 06/19/20 09:00 06/23/20 08:31 Lisinopril 5 Mg Tablet PO 5 mg DAILY MARIANELA Administration Protocol Lorazepam 0.5 mg 06/18/20 16:34 Lorazepam 0.5 Mg Tablet PO TID PRN Anxiety Magnesium Oxide 400 mg 06/19/20 17:30 06/23/20 08:32 Magnesium Oxide 400 Mg Tablet PO 400 mg BIDPC MARIANELA Administration Metoprolol Tartrate 100 mg 06/23/20 09:00 06/23/20 10:55 Metoprolol Tartrate 25 Mg Tablet PO 100 mg BID MARIANELA Administration Protocol Nystatin 1 appl 06/16/20 21:00 06/23/20 08:33 Nystatin Powder 15 Gm Bottle TOPICAL 1 appl BID MARIANELA Administration Protocol Ondansetron HCl 4 mg 06/16/20 15:21 Ondansetron Hcl 4 Mg/2 Ml Vial IVPUSH Q8H PRN Nausea Oxycodone HCl 20 mg 06/18/20 09:00 06/23/20 08:31 Oxycodone Hcl Er 10 Mg Tab.Er.12h PO 20 mg BID MARIANELA Administration Oxycodone HCl 10 mg 06/18/20 08:53 06/21/20 16:00 Oxycodone Hcl Immed Release 5 Mg Tablet PO 10 mg Q6H PRN Administration breakthrough pain Pharmacy Consult 1 each 06/16/20 14:54 Consult Rx Perform Med Rec MISCELLANE ONCE PRN Consult order Rivaroxaban 20 mg 06/21/20 09:00 06/23/20 08:32 Rivaroxaban 20 Mg Tablet PO 20 mg DAILY MARIANELA Administration Spironolactone 25 mg 06/18/20 11:15 06/23/20 08:31 Spironolactone 25 Mg Tablet PO 25 mg DAILY MARIANELA Administration Protocol Labs CBC & Chem 7: 06/18/20 06:05 06/23/20 06:28 Labs: Laboratory Results - last 24 hr 06/22/20 06/22/20 06/23/20 16:47 20:12 06:28 VBG pH VBG pCO2 VBG pO2 VBG HCO3 VBG O2 Saturation VBG Base Excess Sodium 138 Potassium 3.7 Chloride 95 L Carbon Dioxide 35 H Anion Gap 12 BUN 25 H Creatinine 1.01 Estim Creat Clear Calc 141.2 Estimated GFR > 60 POC Glucose 97 118 H Random Glucose 95 Calcium 8.6 Magnesium 1.7 B-Natriuretic Peptide 06/23/20 06/23/20 06/23/20 06:28 06:38 07:24 VBG pH 7.41 VBG pCO2 64 VBG pO2 49 VBG HCO3 41 H VBG O2 Saturation 77.0 VBG Base Excess 13.7 Sodium Potassium Chloride Carbon Dioxide Anion Gap BUN Creatinine Estim Creat Clear Calc Estimated GFR POC Glucose 98 Random Glucose Calcium Magnesium B-Natriuretic Peptide 321 H 06/23/20 11:33 VBG pH VBG pCO2 VBG pO2 VBG HCO3 VBG O2 Saturation VBG Base Excess Sodium Potassium Chloride Carbon Dioxide Anion Gap BUN Creatinine Estim Creat Clear Calc Estimated GFR POC Glucose 97 Random Glucose Calcium Magnesium B-Natriuretic Peptide Microbiology Microbiology Results: Microbiology 06/16/20 14:30 Blood - Venous Blood Culture - Final No growth after 5 days. 06/16/20 14:15 Blood - Venous Blood Culture - Final No growth after 5 days. Assessment and Plan (1) Obstructive sleep apnea: Status: Acute Assessment and Plan: hospital d#8 64yo M with CHF, AF, morbid obesity, DM, HTN, peripheral neuropathy, chronic back pain admitted to ICU with acute hypercapneic respiratory failure and acute decompensated HF, placed on BiPAP + furosemide gtt stepped down to IMC 06/17/20 # ADHF - net negative 20L this admission; changed to PO bumetanide 06/22/20 - continue spironolactone - SGLT2 inhibitor not on hospital formulary; will prescribe upon discharge empagliflozin 10 mg daily - strict I/O, low-Na diet - continue lisinopril, metoprolol - outpt Cardiology f/u after Holter monitor # AF, chronic, with RVR # labile INR; changed AC from warfarin to rivaroxaban- held briefly for blood- tinged Joaquin but cleared up and resumed without incident - metoprolol, digoxin # acute/chronic hypercarbic respiratory failure - undoubetdly OHS/NATI with CO2 retention. Pulmonology will submit for authorization for home Trilogy ventilator. should go to pulm rehab before going home, though - acetazolamide # morbid obesity - consider outpt bariatrics evaluation # hypoMg - repleted # gout - continue allopurinol # DM2, HbA1c 6 - correction-dose lispro # VTE ppx - rivaroxaban # dispo - [facility] for pulm rehab
--- NOTE | 2020-06-23 14:28 | MHC.CM.PN ---
EMR REVIEWED, PER HOSPITALIST PT SHOULD BE READY FOR D/C TO PULMONARY REHAB ON Thursday06/25/20, CM WILL UPDATE REFERRALS PLACED.
[2020-06-23 16:21] LABS: Glucose, Whole Blood 124 mg/dL (60-115)
--- NOTE | 2020-06-23 17:57 | PC.NURSE ---
Patient's chong catheter discontinued today, patient voiding without issue in urinal, pale, yellow urine, 450 mL, some incontinence due to missing urinal. O2 discontinued per MD as well. Patient's O2 SAT in the low 90s. On BiPap when taking naps and sleeping at night due to O2 SAT in the 80s while asleep.
[2020-06-23 21:02] LABS: Glucose, Whole Blood 128 mg/dL (60-115)
[2020-06-23] MEDS: LORazepam 0.5 MG TABLET PO (22:35)
[2020-06-23] MEDS: Atorvastatin Calcium 20 MG TABLET PO (22:37)
[2020-06-24] VITALS (11 sets, daily range): BP systolic 116–145; BP diastolic 56–70; PULSE 74–93; RESP 18–20; TEMP 36.2–37.3; O2SAT 93–98
[2020-06-24 07:47] LABS: Glucose, Whole Blood 107 mg/dL (60-115)
[2020-06-24] MEDS: Bumetanide 1 MG TABLET 2 MG PO ×2 (08:12→17:07)
[2020-06-24] MEDS: Spironolactone 25 MG TABLET PO (08:13)
[2020-06-24] MEDS: Magnesium Oxide 400 MG TABLET PO ×2 (08:13→17:07)
[2020-06-24] MEDS: Digoxin 0.25 MG TABLET PO (08:13)
[2020-06-24] MEDS: oxyCODONE HCl ER 10 MG TAB.ER.12H 20 MG PO ×2 (08:14→21:12)
[2020-06-24] MEDS: Rivaroxaban 20 MG TABLET PO (08:14)
[2020-06-24] MEDS: lisinopriL 5 MG TABLET PO (08:14)
[2020-06-24] MEDS: allopurinoL 300 MG TABLET PO (08:15)
[2020-06-24] MEDS: acetaZOLAMIDE 250 MG TABLET PO ×2 (08:15→21:12)
[2020-06-24] MEDS: Metoprolol Tartrate 25 MG TABLET 100 MG PO ×2 (08:15→21:11)
[2020-06-24] MEDS: Nystatin Powder 15 GM BOTTLE 1 APPL TOPICAL ×2 (08:17→21:13)
[2020-06-24 11:39] LABS: Glucose, Whole Blood 108 mg/dL (60-115)
--- NOTE | 2020-06-24 12:05 | P.PNIM_ITS ---
Subjective Subjective Date of Service: 06/24/20 Interval History: feeling better, less tired and less short of breath no chest pain appetite improved Physical Exam Vital Signs: Vital Signs: Last Vital Signs Temp 97.9 F 06/24/20 12:00 Pulse 93 06/24/20 12:00 Resp 20 06/24/20 12:00 BP 121/58 L 06/24/20 12:00 Pulse Ox 96 06/24/20 12:00 Body Mass Index 64.8 Gen: NAD HEENT: sclera anicteric, moist mucus membranes Neck: supple Lungs: clear bliaterally Heart: irregular, rate-controlled, distant heart sounds due to body habitus Abd: morbidly obese Ext: 1+ bilateral lower extremity edema Skin: warm/well-perfused, extensive chronic venous stasis dermatitis Neuro: alert and oriented x3, no focal findings Psych: appropriate affect Objective Data Current Medications Generic Name Dose Route Start Last Admin Trade Name Freq PRN Reason Stop Dose Admin Acetazolamide 250 mg 06/19/20 09:00 06/24/20 08:15 Acetazolamide 250 Mg Tablet PO 250 mg BID MARIANELA Administration Albuterol/Ipratropium 3 ml 06/19/20 18:25 06/19/20 18:49 Albuterol/Iprat 2.5/0.5mg 3 Ml Ampul.Neb INHALE 3 ml Q4H PRN Administration Wheezing Allopurinol 300 mg 06/19/20 09:00 06/24/20 08:15 Allopurinol 300 Mg Tablet PO 300 mg DAILY MARIANELA Administration Atorvastatin Calcium 20 mg 06/18/20 21:00 06/23/20 22:37 Atorvastatin Calcium 20 Mg Tablet PO 20 mg BEDTIME MARIANELA Administration Bumetanide 2 mg 06/22/20 17:00 06/24/20 08:12 Bumetanide 1 Mg Tablet PO 2 mg BID@0800,1700 MARIANELA Administration Protocol Digoxin 0.25 mg 06/20/20 09:00 06/24/20 08:13 Digoxin 0.25 Mg Tablet PO 0.25 mg DAILY MARIANELA Administration Insulin Human Lispro 0 unit 06/20/20 11:30 06/24/20 11:57 Insulin Lispro 100 Unit/Ml 3 Ml Vial SUBCUT Not Given QIDACHS MARIANELA Protocol Lisinopril 5 mg 06/19/20 09:00 06/24/20 08:14 Lisinopril 5 Mg Tablet PO 5 mg DAILY MARIANELA Administration Protocol Lorazepam 0.5 mg 06/18/20 16:34 06/23/20 22:35 Lorazepam 0.5 Mg Tablet PO 0.5 mg TID PRN Administration Anxiety Magnesium Oxide 400 mg 06/19/20 17:30 06/24/20 08:13 Magnesium Oxide 400 Mg Tablet PO 400 mg BIDPC MARIANELA Administration Metoprolol Tartrate 100 mg 06/23/20 09:00 06/24/20 08:15 Metoprolol Tartrate 25 Mg Tablet PO 100 mg BID MARIANELA Administration Protocol Nystatin 1 appl 06/16/20 21:00 06/24/20 08:17 Nystatin Powder 15 Gm Bottle TOPICAL 1 appl BID MARIANELA Administration Protocol Ondansetron HCl 4 mg 06/16/20 15:21 Ondansetron Hcl 4 Mg/2 Ml Vial IVPUSH Q8H PRN Nausea Oxycodone HCl 20 mg 06/18/20 09:00 06/24/20 08:14 Oxycodone Hcl Er 10 Mg Tab.Er.12h PO 20 mg BID MARIANELA Administration Oxycodone HCl 10 mg 06/18/20 08:53 06/21/20 16:00 Oxycodone Hcl Immed Release 5 Mg Tablet PO 10 mg Q6H PRN Administration breakthrough pain Pharmacy Consult 1 each 06/16/20 14:54 Consult Rx Perform Med Rec MISCELLANE ONCE PRN Consult order Rivaroxaban 20 mg 06/21/20 09:00 06/24/20 08:14 Rivaroxaban 20 Mg Tablet PO 20 mg DAILY MARIANELA Administration Spironolactone 25 mg 06/18/20 11:15 06/24/20 08:13 Spironolactone 25 Mg Tablet PO 25 mg DAILY MARIANELA Administration Protocol Labs CBC & Chem 7: 06/18/20 06:05 06/23/20 06:28 Labs: Laboratory Results - last 24 hr 06/23/20 06/23/20 06/23/20 10:40 16:09 20:43 POC Glucose 124 H 128 H COVID-19 ([facility]) Negative COVID-19 Clin Com See Note 06/24/20 06/24/20 07:42 11:35 POC Glucose 107 108 COVID-19 ([facility]) COVID-19 Clin Com Microbiology Microbiology Results: Microbiology 06/16/20 14:30 Blood - Venous Blood Culture - Final No growth after 5 days. 06/16/20 14:15 Blood - Venous Blood Culture - Final No growth after 5 days. Assessment and Plan (1) Obstructive sleep apnea: Status: Acute Assessment and Plan: hospital d#9 64yo M with CHF, AF, morbid obesity, DM, HTN, peripheral neuropathy, chronic back pain admitted to ICU with acute hypercapneic respiratory failure and acute decompensated HF, placed on BiPAP + furosemide gtt stepped down to IMC 06/17/20 # ADHF - net negative 23L this admission; changed to PO bumetanide 06/22/20 - continue spironolactone - SGLT2 inhibitors not on hospital formulary; will prescribe empagliflozin 10 mg daily upon discharge - strict I/O, low-Na diet; check labs tomorrow - continue lisinopril, metoprolol - outpt Cardiology f/u after Holter monitor # AF, chronic, with RVR # labile INR; changed AC from warfarin to rivaroxaban- held briefly for blood-ti nged Joaquin but cleared up and resumed without incident - continue metoprolol, digoxin - Cardiology f/u as above # acute/chronic hypercarbic respiratory failure - undoubtedly OHS/NATI with severe CO2 retention. Dr Tinsley [Pulmonology] will submit for authorization for home Trilogy ventilator. should go to pulm rehab before going home, though - acetazolamide # morbid obesity - consider outpt bariatrics evaluation # hypoMg - repleted # gout - continue allopurinol # DM2, HbA1c 6 - correction-dose lispro # VTE ppx - rivaroxaban # dispo - [facility] for pulm rehab, possibly tomorrow
[2020-06-24 16:41] LABS: Glucose, Whole Blood 137 mg/dL (60-115)
[2020-06-24 20:20] LABS: Glucose, Whole Blood 148 mg/dL (60-115)
[2020-06-24] MEDS: Atorvastatin Calcium 20 MG TABLET PO (21:12)
[2020-06-25 00:01] VITALS: PULSE 77; RESP 40; O2SAT 93
[2020-06-25 03:33] VITALS: BP 129/56; PULSE 81; RESP 18; TEMP 36.5; O2SAT 96
[2020-06-25 06:00] VITALS: BMI 62.4
[2020-06-25 06:21] LABS: Venous Blood Gas Refer to POC result
[2020-06-25 06:22] LABS: VBG Base Excess 10.9 mmol/L; VBG HCO3 40 mmol/L (22-26); VBG pCO2 78 mmHg; VBG pH 7.31 (7.32-7.43); VBG pO2 36 mmHg
[2020-06-25 06:48] LABS: Anion Gap 12 (12-20); Blood Urea Nitrogen 26 mg/dL (9-16); Calcium 8.5 mg/dL (8.4-10.2); Carbon Dioxide 36 mmol/L (22-29); Chloride 97 mmol/L (96-108); Creatinine Clr Calc Pharmacy 124.2; Estimated Glomerular Filt Rate > 60; Glucose Random 106 mg/dL (60-115); Sodium 141 mmol/L (135-145)
[2020-06-25 06:52] LABS: B Type Natriuretic Peptide 311 pg/mL (<100)
[2020-06-25 07:57] LABS: Glucose, Whole Blood 100 mg/dL (60-115)
[2020-06-25 07:59] VITALS: BP 147/75; PULSE 76; RESP 22; TEMP 36.8; O2SAT 98
[2020-06-25] MEDS: Nystatin Powder 15 GM BOTTLE 1 APPL TOPICAL (08:02)
[2020-06-25] MEDS: Rivaroxaban 20 MG TABLET PO (08:07)
[2020-06-25] MEDS: allopurinoL 300 MG TABLET PO (08:07)
[2020-06-25] MEDS: oxyCODONE HCl ER 10 MG TAB.ER.12H 20 MG PO (08:07)
[2020-06-25] MEDS: acetaZOLAMIDE 250 MG TABLET PO (08:07)
[2020-06-25] MEDS: Magnesium Oxide 400 MG TABLET PO (08:07)
[2020-06-25] MEDS: Spironolactone 25 MG TABLET PO (08:07)
[2020-06-25] MEDS: lisinopriL 5 MG TABLET PO (08:08)
[2020-06-25] MEDS: Bumetanide 1 MG TABLET 2 MG PO (08:08)
[2020-06-25] MEDS: Metoprolol Tartrate 25 MG TABLET 100 MG PO (08:08)
[2020-06-25] MEDS: Digoxin 0.25 MG TABLET PO (08:08)
--- NOTE | 2020-06-25 09:10 | P.PNPL_ITS ---
Subjective Subjective Date of Service: 06/25/20 Principal diagnosis: CHF, Resp failure, chronic afib, HTN, morbid obesity Interval history: This 64 years old gentleman, claims to be feeling better, Subjectively has less respiratory distress. Claims that he capped BiPAP on for 6 hours then it came off and was put back on for another 2 hours, last night. He remains mostly in supine position in the bed, during the daytime does sit up in the recliner, but he needs to do it more. He is anxious to go home, and is not to inclined to go to inpatient rehab facility. Objective Data Labs CBC & Chem 7: 06/18/20 06:05 06/25/20 06:06 Labs: Laboratory Results - last 24 hr 06/24/20 06/24/20 06/24/20 11:35 16:12 19:59 VBG pH VBG pCO2 VBG pO2 VBG HCO3 VBG O2 Saturation VBG Base Excess Sodium Potassium Chloride Carbon Dioxide Anion Gap BUN Creatinine Estim Creat Clear Calc Estimated GFR POC Glucose 108 137 H 148 H Random Glucose Calcium B-Natriuretic Peptide 06/25/20 06/25/20 06/25/20 06:06 06:06 06:15 VBG pH 7.31 L VBG pCO2 78 VBG pO2 36 VBG HCO3 40 H VBG O2 Saturation 59.0 VBG Base Excess 10.9 Sodium 141 Potassium 4.0 Chloride 97 Carbon Dioxide 36 H Anion Gap 12 BUN 26 H Creatinine 1.12 Estim Creat Clear Calc 124.2 Estimated GFR > 60 POC Glucose Random Glucose 106 Calcium 8.5 B-Natriuretic Peptide 311 H 06/25/20 07:33 VBG pH VBG pCO2 VBG pO2 VBG HCO3 VBG O2 Saturation VBG Base Excess Sodium Potassium Chloride Carbon Dioxide Anion Gap BUN Creatinine Estim Creat Clear Calc Estimated GFR POC Glucose 100 Random Glucose Calcium B-Natriuretic Peptide Microbiology Microbiology Results: Microbiology 06/16/20 14:30 Blood - Venous Blood Culture - Final No growth after 5 days. 06/16/20 14:15 Blood - Venous Blood Culture - Final No growth after 5 days. Review of Systems Review of Systems Yes all other systems are reviewed and are negative Constitutional: Reports body ache(s), Denies chills, Reports fatigue, Denies fever(s) and Denies headache(s) Eyes: Reports blurry vision, Reports irritation, Reports itchy eyes and Denies loss of vision Denies dysphagia, Denies vertigo, Denies headache(s), Denies epistaxis, Reports nasal congestion (mild ), Denies nasal discharge, Denies nasal obstruction and Denies sinus pain Cardiovascular: Denies chest pain, Reports rapid heart rate (controlled ), Re ports irregular heart rhythm (controlled) and Reports dyspnea on exertion Respiratory: Reports as per HPI and Reports dyspnea on exertion Gastrointestinal: Reports no additional gastrointestinal complaints and Denies dysphagia Genitourinary: Denies urinary incontinence Musculoskeletal: Reports abnormal gait (nonambulatory at this time ), Reports back pain (chronic ), Reports myalgias, Reports arthralgias, Reports muscle weak ness and Reports stiffness Denies Abnormal speech present, Reports abnormal gait (nonambulatory at this time ), Denies vertigo, Denies headache(s), Denies focal weakness, Denies loss of vision, Denies memory loss, Denies restless legs and Denies tremor(s) Psychiatric: Denies depression, Denies difficulty concentrating, Denies memory loss and Denies mood swings Endocrine: Reports no additional endocrine complaints and Reports fatigue Hematologic/Lymphatic: Reports no additional hematologic/lymphatic complaints Allergic/Immunologic: Reports no additional allergic/immunologic complaints and Reports itchy eyes Physical Exam Vital Signs: Vital Signs: Last Vital Signs Temp 98.2 F 06/25/20 07:59 Pulse 76 06/25/20 07:59 Resp 22 H 06/25/20 07:59 BP 147/75 H 06/25/20 07:59 Pulse Ox 98 06/25/20 07:59 Body Mass Index 62.4 Const: Other: GROSSLY OBESE . General: comfortable, no acute distress, alert and awake Orientation/consciousness: patient oriented x3 HENMT: Head: Yes normal to inspection General nose exam: No nasal polyps present and No nasal discharge present Face and sinus: Yes sinuses nontender Mouth: oropharynx abnormals (CROWDED, MALLAMPATTI CLASS=4) Throat: Yes posterior oropharynx normal Eyes: General: appearance normal, both eyes and all related structures Neck: Neck: Yes normal visual inspection, Yes no lymphadenopathy, Yes trachea midline, Yes no JVD and Yes other (VERY OBESE , NECK SIZE- 20 ) Thyroid: Thyroid normal Chest: Other: VERY OBESE , NON TENDER . Resp: Other: BREATH SOUNDS ARE DIMINISHED DUE THROUGHOUT THE CHEST ABOUT ESPECIALLY OVER THE BASILAR AREAS. THERE ARE INSPIRATORY CRACKLES OVER BOTH BASES HE TRIES TO TAKE DEEPER BREATHS. Cardio: Palpation: abnormal PMI (NOT PALPABLE .) Rate: regular rate Heart sounds: no gallops and no murmurs GI: Other: ABDOMEN IS GROSSLY OBESE AND PENDULOUS Palpation (GI): Soft to palpation, nontender, No hepatosplenomegaly present and no masses Auscultation: normal bowel sounds Back/Spine/Pelvis: Other: COULD NOT EXAMINE, BUT THERE IS NO LOCAL TENDERNESS. Skin: General skin exam: no rashes or lesions noted Neuro: General: patient oriented x3 and no focal motor deficits Cranial nerves: Yes CN's II-XII intact bilaterally and Yes Other cranial nerve findings present (GENERAL WEAKNESS OF LOWER EXTREMITIES, SECONDARY TO CHRONIC PERIPHERAL NEUR) Speech: No Abnormal speech present Extrem: General: Yes normal to inspection, Yes no clubbing, cyanosis or edema, Yes no calf tenderness and Yes venous stasis dermatitis Psych: Speech and movement: Normal speech and movement present Assessment and Plan Assessment and plan (1) Acute respiratory failure with hypoxia and hypercapnia: Problem details: HE HAS ACUTE ON CHRONIC RESPIRATORY FAILURE, WITH MARKED CO2 RETENTION. With INCREASED USE OF BIPAP FOR ABOUT 7-8 HOURS LAST NIGHT, HIS BLOOD GASES ARE MUCH IMPROVED, ( PH 7.41 PCO2 64 BICARB = 41 ) T0day , pco2 is increased to 78 , as he probably did not use BIPAP for enough time last night . STRESSED THAT HE SHOULD CONTINUE TO USE BIPAP MUCH POSSIBLE. I THINK HE NEEDS A NON INVASIVE RESPIRATORY SUPPORT ( HOME VENT DEVICE ) AT HOME , TO TREAT HIS ACUTE ON CHRONIC RESPIRATORY FAILURE . HE ALSO NEEDS OXYGEN , AT 2- 3 L/ MT. AROUND THE CLOCK , GOAL SHOULD BE O2 SAT . OF 92 TO 94 % IN HIS CASE , INCENTIVE SPIROMETRY FOR DEEP BREATHING EXERCISES . WHICH HE SHOULD USE OF TEN POSSIBLE . IN ADDITION , I INSTRUCTED HIM TO DO PURSE LIP BREATHING EXERCISES OFTEN POSSIBLE . IT IS BETTER FOR HIM TO BE MOSTLY IN RECLINER / UPRIGHT POSITION , DURING THE DAY . HE ALSO NEEDS HOSPITAL BED AT HOME , SO THAT HE CAN PROP UP HEAD SIDE AT NIGHT . Status: Acute (2) Morbid obesity: Problem details: HE IS MORBIDLY OBESE Once the acute condition is under control he would need to participate in some aggressive weight management program. May need Gastroplasty or other intervention to reduce the weight . Status: Acute (3) Restrictive lung disease secondary to obesity: Problem details: DUE TO HIS MORBID OBESITY , HE MUST HAVE SIGNIFICANT RESTRICTIVE LUNG DISORDER , WILL NEED TO HAVE PULM . FUNCTION TEST AT ALATER DATE ,. Status: Inactive Time Spent With Patient Time: Total time spent is greater than 50% in coordination of care (as documented) at patient's floor/unit and/or counseling patient: Time with patient: 25 - 35 minutes
--- NOTE | 2020-06-25 11:22 | MHC.CLN ---
F/U PO INTAKE 50-75% DIET RX: 2000DM 2GM NA-APPROPRIATE RECOMEMND ADDING GRIFFIN TO [facility]OM[facility] WOUND HEALING FOLLOWING
[2020-06-25 11:50] LABS: Glucose, Whole Blood 120 mg/dL (60-115)
[2020-06-25 11:56] VITALS: BP 117/42; PULSE 76; RESP 20; TEMP 36.4; O2SAT 96
--- NOTE | 2020-06-25 14:06 | MHC.CM.PN ---
Patient has been medically cleared for dc to [facility] today.Patient and are aware of and in agreement with the dc plan. Second IMM addressed with Patient and the original has been left with him and s copy has been placed in the chart.Patient will dc to [facility] today at 4PM, via [facility].
--- NOTE | 2020-06-25 14:09 | P.DS_ITS ---
DS: Providers Provider Date of Service: 06/25/20 Date of admission: 06/16/20 15:22 Primary care physician: Amanuel Stephenson MD Consults: 06/18/20 08:55 Consult to Cardiology Routine Consulting Provider: [facility] [place] Cardiovascular Services Reason for consultation: ADHF 06/18/20 16:32 Consult to Pulmonology Routine Consulting Provider: [facility] [place] Pulmonology Services Reason for consultation: likely OHS/NATI likely needs CPAP/BiPAP. 06/19/20 19:04 Consult to Urology Routine Consulting Provider: Rafiq Davidson Reason for consultation: Hematuria Has provider been notified: No DS: Diagnosis Discharge Diagnosis (1) Acute respiratory failure with hypoxia and hypercapnia: Status: Acute (2) Morbid obesity: Status: Acute (3) Restrictive lung disease secondary to obesity: Status: Inactive (4) CHF (congestive heart failure): Status: Acute (5) Uncontrolled hypertension: Status: Acute (6) Obstructive sleep apnea: Status: Acute DS: Medications Discharge Medications Home Medications: Home Medications Medication Instructions Recorded Confirmed Xtampza ER 1 cap PO BID 06/16/20 06/16/20 allopurinol 1 tab PO DAILY 06/16/20 06/16/20 lisinopril 1 tab PO DAILY 06/16/20 06/16/20 lorazepam 1 tab PO TID PRN 06/16/20 06/16/20 metformin 1 tab PO BID 06/16/20 06/16/20 metoprolol tartrate 1 tab PO BID 06/16/20 06/16/20 oxycodone 5 tab PO NEEDED 06/16/20 06/16/20 oxycodone [OxyContin] 1 tab PO BID 06/16/20 06/16/20 simvastatin 1 tab PO BEDTIME 06/16/20 06/16/20 Previous Rx's Medication Instructions Recorded acetazolamide 250 mg PO BID #60 tab 06/25/20 bumetanide 2 mg PO BID@0800,1700 #60 tab 06/25/20 digoxin 250 mcg PO DAILY #30 tab 06/25/20 magnesium oxide 400 mg PO BIDPC #60 tab 06/25/20 rivaroxaban [Xarelto] 20 mg PO DAILY #30 tab 06/25/20 spironolactone 25 mg PO DAILY #30 tab 06/25/20 DS: Summary Hospital Course Hospital Course: Admission note HPI This is a 64-year-old male with a past medical history of congestive heart failure ( last known echo EF 55-60%), atrial fibrillation ( Co umadin), morbid obesity, COPD, diabetes mellitus, hypertension, peripheral neuropathy and osteoarthritis Who presented to the emergency room after family called EMS due to patient being extremely short of breath. Per EMS patient saturations were in the 70s at home, was placed on CPAP. VBGS: 7.29/81/40/39. Laboratory date significant: Na133, Chloride 90, Bicarb 34, BNP 722. Imaging: Chest Xray: Consisted with CHF exacerbation ABD Xray: no acute abnormality In the ER he received Lasix 40 mg and placed on BiPAP. He will be admitted into the ICU for management of Congestive heart failure exacerbation require BiPAP support. hospital course: The patient was admitted to the ICU with hypercapnic respiratory failure and acute decompensated heart failure placed on BiPAP and started on Lasix drip with fair response over the course of 2 days. Transferred to the medical floor where he continued treatment with Lasix infusion as cardiology evaluated the patient with Echo done showing within normal cardiac function. He was noted to have atrial fibrillation with rapid ventricular response. Controlled with addition of digoxin in discontinuing diltiazem. Anticoagulation was changed from warfarin to Xarelto. The patient is morbidly obese with BMI of 62 which is contributing a lot to his ongoing presentation. he would need to participate in some aggressive weight management program and might need intervention to help with this. Plan to be discharged to pulmonary rehab facility. To get home Trilogy ventilator along with bariatric bed. To follow-up with pulmonology Dr. Tinsley as outpatient for pulmonary function test To repeat blood test for kidney function next week after starting new medications. Time Spent with Patient Time attestation: Total time spent providing and/or coordinating discharge services: Discharge coordination time: Greater than 30 minutes Physical Exam Vital Signs: Vital Signs: Last Vital Signs Temp 97.5 F 06/25/20 11:56 Pulse 76 06/25/20 11:56 Resp 20 06/25/20 11:56 BP 117/42 L 06/25/20 11:56 Pulse Ox 96 06/25/20 11:56 Body Mass Index 62.4 Const: Other: Constitutional : Alert, oriented, not in distress Neck : Normal inspection, Supple Cardiovascular : RRR, S1 S2, trace bilateral lower extremity edema Respiratory : Fair bilateral air entry, no crackles, wheezes or rhonchi Gastrointestinal: soft, lax, Normal bowel sounds, Non tender Skin : Warm/Dry, chronic bilateral stasis dermatitis Neurological : Alert & oriented x3, No focal deficit DS: Data Data Completed and Pending Labs on day of discharge: Laboratory Results - last 24 hr 06/24/20 06/24/20 06/25/20 16:12 19:59 06:06 VBG pH VBG pCO2 VBG pO2 VBG HCO3 VBG O2 Saturation VBG Base Excess Sodium 141 Potassium 4.0 Chloride 97 Carbon Dioxide 36 H Anion Gap 12 BUN 26 H Creatinine 1.12 Estim Creat Clear Calc 124.2 Estimated GFR > 60 POC Glucose 137 H 148 H Random Glucose 106 Calcium 8.5 B-Natriuretic Peptide 06/25/20 06/25/20 06/25/20 06:06 06:15 07:33 VBG pH 7.31 L VBG pCO2 78 VBG pO2 36 VBG HCO3 40 H VBG O2 Saturation 59.0 VBG Base Excess 10.9 Sodium Potassium Chloride Carbon Dioxide Anion Gap BUN Creatinine Estim Creat Clear Calc Estimated GFR POC Glucose 100 Random Glucose Calcium B-Natriuretic Peptide 311 H 06/25/20 11:31 VBG pH VBG pCO2 VBG pO2 VBG HCO3 VBG O2 Saturation VBG Base Excess Sodium Potassium Chloride Carbon Dioxide Anion Gap BUN Creatinine Estim Creat Clear Calc Estimated GFR POC Glucose 120 H Random Glucose Calcium B-Natriuretic Peptide Discharge Plan Discharge Patient Disposition: [facility] Referrals: [facility] [Outside] Amanuel Stephenson MD [Primary Care Provider] - Discharge Medications: New Xarelto 20 mg Tablet 20 mg PO DAILY Qty: 30 RF: 0 digoxin 250 mcg (0.25 mg) Tablet 250 mcg PO DAILY Qty: 30 RF: 0 spironolactone 25 mg Tablet 25 mg PO DAILY Qty: 30 RF: 0 bumetanide 1 mg Tablet 2 mg PO BID@0800,1700 Qty: 60 RF: 0 acetazolamide 250 mg Tablet 250 mg PO BID Qty: 60 RF: 0 magnesium oxide 400 mg (241.3 mg magnesium) Tablet 400 mg PO BIDPC Qty: 60 RF: 0 Continued metformin 500 mg tablet 1 tab PO BID RF: 0 simvastatin 40 mg tablet 1 tab PO BEDTIME RF: 0 lorazepam 0.5 mg tablet 1 tab PO TID PRN (Reason: Anxiety) RF: 0 metoprolol tartrate 50 mg tablet 1 tab PO BID RF: 0 allopurinol 300 mg tablet 1 tab PO DAILY RF: 0 lisinopril 5 mg tablet 1 tab PO DAILY RF: 0 oxycodone 5 mg tablet 5 tab PO NEEDED RF: 0 oxycodone [OxyContin] 20 mg tablet,oral only,ext.rel.12 hr 1 tab PO BID RF: 0 Xtampza ER 18 mg cap,sprinkl,ER12hr(DONT CRUSH) 1 cap PO BID RF: 0 Discontinued furosemide 40 mg tablet 1 tab PO DAILY RF: 0 diltiazem HCl 180 mg capsule,extended release 24hr 180 mg PO BID RF: 0 warfarin 5 mg tablet 1 tab PO BEDTIME RF: 0 warfarin 1 mg tablet 2 mg PO BEDTIME RF: 0 Discharge Orders: Discharge Order (Routine); Ordered 06/25/20 Ordered By: Nadeem Moreno Diet: advance to usual diet Activity on Discharge: As tolerated Stand Alone Forms: Patient Portal Discharge page Other Ambulatory Orders: Basic Metabolic Panel (Routine) Timeframe: 1 Week Facility: [facility] - Location: Laboratory Ordered By: Nadeem Moreno Care Plan Goals: Read below Health Concerns: Read below Plan of Treatment: You were admitted to the hospital for difficulty breathing as a result of heart failure and sleep apnea. You were admitted to ICU and transferred to the medical floor after initial improvement. You were treated with water pills for fluid overload with good response over the course of hospital stay. Evaluated by Cardiology with adjustment of some of your home medications. You were evaluated by pulmonology for obstructive sleep apnea and started on BiPAP machine which she will need on the long-term. You need to wear it every night. We advise you to lose weight to help with overall improvement in your respiratory function. To start pulmonary rehab for To follow-up with Dr. Tinsley from pulmonology as outpatient Discontinue warfarin, Lasix and diltiazem Start digoxin, spironolactone, bumetanide, acetazolamide and Xarelto as prescribed To repeat blood test next week
[2020-06-25 14:26] LABS: COVID-19 Test Negative (Negative)
[2020-06-25] MEDS: Acetaminophen 325 MG TABLET 650 MG PO (15:46)
== END 2020-06-25 16:38 | disposition skilled nursing facility (03) | DRG 291 ==
LOC: HO.ED 15:38 → HO.EDOVER 16:05 → HO.ICU 19:51 → HO.IMC 06-17 13:59
PROVIDERS: Family Medicine; Internal Medicine; Admitting Provider Internal Medicine Pulmonary Disease; Emergency Provider Emergency Medicine; PCP Internal Medicine; Visit Provider Student in an Organized Health Care Education/Training Program
DX: I11.0 Hypertensive heart disease with heart failure (principal); I50.31 Acute diastolic (congestive) heart failure; J96.22 Acute and chronic respiratory failure with hypercapnia; J96.21 Acute and chronic respiratory failure with hypoxia; Z68.44 Body mass index [BMI] 60.0-69.9, adult; D68.9 Coagulation defect, unspecified; E66.2 Morbid (severe) obesity with alveolar hypoventilation; I48.20 Chronic atrial fibrillation, unspecified; I27.81 Cor pulmonale (chronic); I50.33 Acute on chronic diastolic (congestive) heart failure; I50.810 Right heart failure, unspecified; E83.42 Hypomagnesemia; M10.9 Gout, unspecified; E11.42 Type 2 diabetes mellitus with diabetic polyneuropathy; Z20.822 Contact with and (suspected) exposure to COVID-19; Z79.01 Long term (current) use of anticoagulants; Z79.84 Long term (current) use of oral hypoglycemic drugs; Z79.899 Other long term (current) drug therapy
CPT/HCPCS: 0241U; 36415; 71045; 74018; 80048; 80053; 80076; 80320; 81001; 82040; 82947; 83036; 83605; 83735; 83880; 84100; 84484; 85025; 85379; 85610; 86850; 86900; 87040; 87635; 93005; 93306; 94640; 94660; 94799; 96374; 97110; 97116; 97162; 99285; 99291; 99292; J1160; J1940; J3430; J3475; P9017; Q9957

== ENCOUNTER 2020-07-13 16:18 | Inpatient (IN) | payer MEDICARE, MEDICAID, OTHER, SELFPAY ==
[2020-07-13] VITALS (7 sets, daily range): BP systolic 82–144; BP diastolic 22–115; PULSE 85–98; RESP 10–22; TEMP 36.7–36.9; O2SAT 95–99; BMI 52.2
--- NOTE | ~2020-07-13 | CT_ITS ---
EXAMINATION: CT HEAD WITHOUT CONTRAST CLINICAL INFORMATION: Altered mental status on Xarelto COMPARISON: None TECHNIQUE: Contiguous axial imaging was performed from the skull base to vertex without intravenous administration of contrast. This CT examination was performed using dose optimization techniques as appropriate, variously including the following: *Automated exposure control *Adjustment of mA and/or kV according to patient size (this includes techniques or standardized protocols for targeted exams where dose is matched to indication/reason for exam; i.e. extremities or head) *Use of iterative reconstruction technique DLP: 1362 mGy-cm FINDINGS: There is no evidence of acute intracranial hemorrhage or territorial infarction. No abnormal mass effect or midline shift is seen. Darden to white matter differentiation is well preserved. No extra-axial fluid collections are identified. The ventricles are normal in size. Mild periventricular and subcortical white matter hypodensity consistent with age-appropriate chronic microvascular white matter ischemic changes. The osseous structures and soft tissues are normal. Mild bilateral ethmoid sinus mucosal thickening. CT/CT head/brain wo con IMPRESSION: No acute intracranial pathology.
--- NOTE | ~2020-07-13 | US_ITS ---
EXAMINATION: US RETROPERITONEAL LIMITED (RENAL ONLY), PORTABLE. CLINICAL INFORMATION: ATI. COMPARISON: None TECHNIQUE: 13 grayscale imaging of kidneys was performed FINDINGS: RIGHT KIDNEY: 13.7 x 7.8 x 7.0 cm (SAG x AP x TRV). The kidney is normal in size, contour, and echogenicity. Renal cortical thickness is normal. No calculi or focal parenchymal lesions. There are echogenic vessels visualized. No hydronephrosis. LEFT KIDNEY: 12.8 x 7.3 x 7.8 cm (SAG x AP x TRV). The kidney is normal in size, contour, and echogenicity. Renal cortical thickness is normal. No calculi or focal parenchymal lesions. No hydronephrosis. US/US renal BI IMPRESSION: No echogenic stones, cyst or hydronephrosis. Echogenic area right kidney likely calcified vessels..
--- NOTE | ~2020-07-13 | XR_ITS ---
EXAMINATION: XR CHEST CLINICAL INFORMATION: Shortness of breath COMPARISON: 06/16/2020 TECHNIQUE: Frontal view of the chest was obtained. FINDINGS: Compared to the prior study there's been some improvement in appearances in pulmonary edema. The heart remains markedly enlarged. Interstitial edema that was present previously is improved. Increased density at both lung bases present previously has significantly improved. The lungs remain hypoinflated. No consolidations, effusions or lung masses are seen. XR/XR chest 1V IMPRESSION: Improved findings when compared to prior exam. Marked cardiomegaly still persists.
[2020-07-13 16:35] LABS: Glucose, Whole Blood 121 mg/dL (60-115)
--- NOTE | 2020-07-13 16:55 | ED.AMS ---
HPI - Altered Mental Status General Chief Complaint: Dyspnea Stated Complaint: AMS, LOW O2 SAT Time Seen by Provider: 07/13/20 16:55 Source: patient Mode of arrival: ambulatory Limitations: no limitations History of Present Illness HPI narrative: Patient with history of CHF ejection fraction 55-60%, atrial fibrillation on Xarelto morbid obesity COPD diabetes mellitus hypertension and sleep apnea but just discharged to rehab on 06/25 and came home last week was doing fine for last 2 days patient has been more confused found to be saturating 80% at room air patient alert oriented 1-2 no head injury no headache no vomiting no chest pain no fever or chills patient had similar problem when he was admitted last time and was saturating 70% at room air. Patient is on Bumex and spironolactone MD complaint: altered mental status and confusion Onset (ago): day(s) (2) Timing confirmed by: family member Severity: moderate Consistency of symptoms: waxing and waning Context: COPD Associated symptoms: shortness of breath Related Data Home Medications Medication Instructions Recorded Confirmed allopurinol 300 mg PO DAILY 06/16/20 07/13/20 metformin 500 mg PO BID 06/16/20 07/13/20 metoprolol tartrate 50 mg PO BID 06/16/20 07/13/20 oxycodone 5 mg PO Q6H PRN 06/16/20 07/13/20 oxycodone [OxyContin] 20 mg PO BID 06/16/20 07/13/20 simvastatin 1 tab PO BEDTIME 06/16/20 07/13/20 albuterol sulfate 2 puff INHALATION QID PRN 07/13/20 07/13/20 bumetanide 2 mg PO BID@0800,1700 07/13/20 07/13/20 folic acid 1 mg PO DAILY 07/13/20 07/13/20 lisinopril 2.5 mg PO DAILY 07/13/20 07/13/20 sennosides-docusate sodium 1 tab PO DAILY 07/13/20 07/13/20 [Stimulant Laxative Plus] Previous Rx's Medication Instructions Recorded acetazolamide 250 mg PO BID #60 tab 06/25/20 digoxin 250 mcg PO DAILY #30 tab 06/25/20 magnesium oxide 400 mg PO BIDPC #60 tab 06/25/20 rivaroxaban [Xarelto] 20 mg PO DAILY #30 tab 06/25/20 spironolactone 25 mg PO DAILY #30 tab 06/25/20 Allergies Allergy/AdvReac Type Severity Reaction Status Date / Time codeine [Codeine] Allergy Intermediate RASH Verified 06/16/20 11:48 Review of Systems Review of Systems: Constitutional : No Weight loss, No Fever, No Chills ENT/Mouth : No sore throat, No Rhinorrhea Eyes: No Eye Pain, No Swelling Cardiovascular : No Chest Pain, no palpitations Respiratory : No Cough, No Sputum, no shortness of breath Gastrointestinal : no Nausea, No Vomiting, No Diarrhea, No abdominal Pain, no black stools Genitourinary : No Dysuria, No Urinary Frequency Musculoskeletal : No joint pain, No Myalgias, No Joint Swelling Skin : No Skin Lesions, No rash Neuro : No Weakness, No Numbness, No Dizziness, No Headache Psych : No Anxiety/Panic, No Depression Heme/Lymph: No Bruising, No Lymphadenopathy Endocrine : No Polyuria, No Polydipsia All other systems reviewed and are negative [facility] Past Medical History Medical History Afib Back pain with history of spinal surgery CHF (congestive heart failure) Coagulopathy Diabetes History of gout HTN (hypertension) Hypercholesterolemia Hypertension Hypoventilation associated with obesity syndrome Knee osteoarthritis Morbid obesity Obstructive sleep apnea Peripheral neuropathy Restrictive lung disease secondary to obesity Social History Social History Household Members: Significant Other Alcohol intake: current Alcohol intake frequency: 3 or more drinks per day Smoking Status: Never smoker Advance Directives: No Advance Directives Information Provided: No service: No Current occupational status: disabled Physical Exam Vital Signs: Vital Signs: Last Vital Signs Temp 98.1 F 07/13/20 22:34 Pulse 98 07/13/20 23:07 Resp 21 H 07/13/20 23:07 BP 113/22 L 07/13/20 23:07 Pulse Ox 97 07/13/20 23:07 Body Mass Index 52.2 Appearance: Alert. Oriented X2. Obese, lethargic Eyes: Pupils equal, round and reactive to light. ENT: Pharynx normal. Dry oral mucosa Neck: Normal inspection. Neck supple. CVS: Normal heart rate and rhythm. Pulses normal. Respiratory: Equal air entry bilateral, decreased air entry bilateral no rales no rhonchi or wheezing Abdomen: Soft and nontender. Bowel sounds are present, no mass palpable, no CVA tenderness Skin: Skin warm and dry. Normal skin color. Normal skin turgor. Extremities 4+ nonpitting lower extremity edema. Neuro: Oriented X 3. No motor deficit. No sensory deficit no cerebellar signs no focal deficit. Uremic flaps++ MDM - Altered Mental Status MDM Narrative Medical decision making narrative: Patient with acute change in mental status , workup showed acute renal injury with creatinine increased from 1.1-5.5 now with potassium of 6.6 without any EKG changes will hydrate patient give calcium gluconate bicarb insulin and p.o. Kayexalate plan to admit the patient nephrology to follow Repeat potassium was 5.4 and creatinine decreased to 4.6 Differential Diagnosis Differential diagnosis: Likely altered mental status Medical Records Attestation: I reviewed the patient's medical records. Lab Data Attestation: I reviewed the patient's lab results. Result diagrams: 07/13/20 17:40 07/13/20 20:56 Labs: Lab Results 07/13/20 07/13/20 07/13/20 Range/Units 16:31 17:39 17:39 WBC (4.8-10.8) X10*3/uL RBC (4.60-5.80) X10*6/uL Hgb (14.0-18.0) g/dl Hct (42-52) % MCV (80-98) fL MCH (27.0-33.0) pg MCHC (31.0-36.0) g/dl RDW (11.0-16.0) % Plt Count (160-400) X10*3/uL MPV (9.4-12.4) fL Immature Gran % (Auto) (0.0-0.4) % Neut % (Auto) (45-73) % Lymph % (Auto) (20-40) % [place] % (Auto) (2-11) % Eos % (Auto) (0-4) % Baso % (Auto) (0-2) % Lymph # (Auto) (1.2-4.9) X10*3/uL [place] # (Auto) (0.1-1.2) X10*3/uL Eos # (Auto) (0.0-0.4) X10*3/uL Baso # (Auto) (0.0-0.2) X10*3/uL Abs Immat Gran (auto) (0.00-0.03) X10*3/uL Absolute Neuts (auto) (2.0-8.3) X10*3/uL Absolute Nucleated RBC (0.0-0.012) X10*3/uL Nucleated RBC % (auto) (0.0-0.2) /100WBC Smear Tech's Comments PT (10.8-13.0) SEC INR (0.9-1.1) APTT (24.1-38.0) SEC VBG pH (7.32-7.43) VBG pCO2 mmHg VBG pO2 mmHg VBG HCO3 (22-26) mmol/L VBG O2 Saturation % VBG Base Excess mmol/L Sodium (135-145) mmol/L Potassium (3.3-5.1) mmol/L Chloride (96-108) mmol/L Carbon Dioxide (22-29) mmol/L Anion Gap (12-20) BUN (9-16) mg/dL Creatinine (0.5-1.4) mg/dL Estim Creat Clear Calc Estimated GFR POC Glucose 121 H (60-115) mg/dL Random Glucose (60-115) mg/dL Lactic Acid 1.6 (0.5-2.0) mmol/L Calcium (8.4-10.2) mg/dL Total Bilirubin (0.0-1.0) mg/dL Direct Bilirubin (0.0-0.5) mg/dL AST (5-37) U/L ALT (0-40) U/L Alkaline Phosphatase (39-117) U/L Ammonia 34 (13-55) umol/L Troponin I High Sens (<3.5-35.0) ng/L B-Natriuretic Peptide (<100) pg/mL Total Protein (6.5-8.0) g/dL Albumin (3.5-5.0) g/dL Urine Color Urine Appearance Urine pH (5.0-8.0) Ur Specific [place] (1.005-1.025) Urine Protein (NEG-TRACE) MG/DL Urine Glucose (UA) (NEG) MG/DL Urine Ketones (NEG) MG/DL Urine Blood (NEG) Urine Nitrite (NEG) Ur Leukocyte Esterase (NEG) Urine RBC (0) /HPF Urine WBC (0-4) /HPF Ur Squamous Epith Cells /LPF Urine Bacteria /LPF COVID-19 ([facility]) (Negative) COVID-19 Clin Com 07/13/20 07/13/20 07/13/20 Range/Units 17:40 17:40 17:40 WBC 9.0 (4.8-10.8) X10*3/uL RBC 3.93 L (4.60-5.80) X10*6/uL Hgb 13.3 L (14.0-18.0) g/dl Hct 42.1 (42-52) % MCV 107.1 H (80-98) fL MCH 33.8 H (27.0-33.0) pg MCHC 31.6 (31.0-36.0) g/dl RDW 14.2 (11.0-16.0) % Plt Count 148 L (160-400) X10*3/uL MPV 12.4 (9.4-12.4) fL Immature Gran % (Auto) 0.4 (0.0-0.4) % Neut % (Auto) 85.8 H (45-73) % Lymph % (Auto) 5.5 L (20-40) % [place] % (Auto) 6.2 (2-11) % Eos % (Auto) 1.7 (0-4) % Baso % (Auto) 0.4 (0-2) % Lymph # (Auto) 0.5 L (1.2-4.9) X10*3/uL [place] # (Auto) 0.6 (0.1-1.2) X10*3/uL Eos # (Auto) 0.2 (0.0-0.4) X10*3/uL Baso # (Auto) 0.0 (0.0-0.2) X10*3/uL Abs Immat Gran (auto) 0.04 H (0.00-0.03) X10*3/uL Absolute Neuts (auto) 7.7 (2.0-8.3) X10*3/uL Absolute Nucleated RBC 0.000 (0.0-0.012) X10*3/uL Nucleated RBC % (auto) 0.0 (0.0-0.2) /100WBC Smear Tech's Comments VERIFIED PT 24.4 H D (10.8-13.0) SEC INR 2.0 H (0.9-1.1) APTT 37.8 (24.1-38.0) SEC VBG pH (7.32-7.43) VBG pCO2 mmHg VBG pO2 mmHg VBG HCO3 (22-26) mmol/L VBG O2 Saturation % VBG Base Excess mmol/L Sodium 133 L (135-145) mmol/L Potassium 6.6 H* D (3.3-5.1) mmol/L Chloride 94 L (96-108) mmol/L Carbon Dioxide 28 (22-29) mmol/L Anion Gap 18 (12-20) BUN 74 H D (9-16) mg/dL Creatinine 5.53 H* (0.5-1.4) mg/dL Estim Creat Clear Calc 22.8 Estimated GFR 10 POC Glucose (60-115) mg/dL Random Glucose 124 H (60-115) mg/dL Lactic Acid (0.5-2.0) mmol/L Calcium 9.0 (8.4-10.2) mg/dL Total Bilirubin 0.6 (0.0-1.0) mg/dL Direct Bilirubin 0.3 (0.0-0.5) mg/dL AST 16 (5-37) U/L ALT 11 (0-40) U/L Alkaline Phosphatase 81 (39-117) U/L Ammonia (13-55) umol/L Troponin I High Sens (<3.5-35.0) ng/L B-Natriuretic Peptide (<100) pg/mL Total Protein 7.0 (6.5-8.0) g/dL Albumin 3.7 (3.5-5.0) g/dL Urine Color Urine Appearance Urine pH (5.0-8.0) Ur Specific [place] (1.005-1.025) Urine Protein (NEG-TRACE) MG/DL Urine Glucose (UA) (NEG) MG/DL Urine Ketones (NEG) MG/DL Urine Blood (NEG) Urine Nitrite (NEG) Ur Leukocyte Esterase (NEG) Urine RBC (0) /HPF Urine WBC (0-4) /HPF Ur Squamous Epith Cells /LPF Urine Bacteria /LPF COVID-19 ([facility]) (Negative) COVID-19 Clin Com 07/13/20 07/13/20 07/13/20 Range/Units 17:40 17:42 17:48 WBC (4.8-10.8) X10*3/uL RBC (4.60-5.80) X10*6/uL Hgb (14.0-18.0) g/dl Hct (42-52) % MCV (80-98) fL MCH (27.0-33.0) pg MCHC (31.0-36.0) g/dl RDW (11.0-16.0) % Plt Count (160-400) X10*3/uL MPV (9.4-12.4) fL Immature Gran % (Auto) (0.0-0.4) % Neut % (Auto) (45-73) % Lymph % (Auto) (20-40) % [place] % (Auto) (2-11) % Eos % (Auto) (0-4) % Baso % (Auto) (0-2) % Lymph # (Auto) (1.2-4.9) X10*3/uL [place] # (Auto) (0.1-1.2) X10*3/uL Eos # (Auto) (0.0-0.4) X10*3/uL Baso # (Auto) (0.0-0.2) X10*3/uL Abs Immat Gran (auto) (0.00-0.03) X10*3/uL Absolute Neuts (auto) (2.0-8.3) X10*3/uL Absolute Nucleated RBC (0.0-0.012) X10*3/uL Nucleated RBC % (auto) (0.0-0.2) /100WBC Smear Tech's Comments PT (10.8-13.0) SEC INR (0.9-1.1) APTT (24.1-38.0) SEC VBG pH 7.30 L (7.32-7.43) VBG pCO2 57 mmHg VBG pO2 49 mmHg VBG HCO3 28 H (22-26) mmol/L VBG O2 Saturation 74.0 % VBG Base Excess 0.9 mmol/L Sodium (135-145) mmol/L Potassium (3.3-5.1) mmol/L Chloride (96-108) mmol/L Carbon Dioxide (22-29) mmol/L Anion Gap (12-20) BUN (9-16) mg/dL Creatinine (0.5-1.4) mg/dL Estim Creat Clear Calc Estimated GFR POC Glucose (60-115) mg/dL Random Glucose (60-115) mg/dL Lactic Acid (0.5-2.0) mmol/L Calcium (8.4-10.2) mg/dL Total Bilirubin (0.0-1.0) mg/dL Direct Bilirubin (0.0-0.5) mg/dL AST (5-37) U/L ALT (0-40) U/L Alkaline Phosphatase (39-117) U/L Ammonia (13-55) umol/L Troponin I High Sens 43.3 H (<3.5-35.0) ng/L B-Natriuretic Peptide 130 H (<100) pg/mL Total Protein (6.5-8.0) g/dL Albumin (3.5-5.0) g/dL Urine Color Urine Appearance Urine pH (5.0-8.0) Ur Specific [place] (1.005-1.025) Urine Protein (NEG-TRACE) MG/DL Urine Glucose (UA) (NEG) MG/DL Urine Ketones (NEG) MG/DL Urine Blood (NEG) Urine Nitrite (NEG) Ur Leukocyte Esterase (NEG) Urine RBC (0) /HPF Urine WBC (0-4) /HPF Ur Squamous Epith Cells /LPF Urine Bacteria /LPF COVID-19 ([facility]) Negative (Negative) COVID-19 Clin Com See Note 07/13/20 07/13/20 07/13/20 Range/Units 20:17 20:27 20:56 WBC (4.8-10.8) X10*3/uL RBC (4.60-5.80) X10*6/uL Hgb (14.0-18.0) g/dl Hct (42-52) % MCV (80-98) fL MCH (27.0-33.0) pg MCHC (31.0-36.0) g/dl RDW (11.0-16.0) % Plt Count (160-400) X10*3/uL MPV (9.4-12.4) fL Immature Gran % (Auto) (0.0-0.4) % Neut % (Auto) (45-73) % Lymph % (Auto) (20-40) % [place] % (Auto) (2-11) % Eos % (Auto) (0-4) % Baso % (Auto) (0-2) % Lymph # (Auto) (1.2-4.9) X10*3/uL [place] # (Auto) (0.1-1.2) X10*3/uL Eos # (Auto) (0.0-0.4) X10*3/uL Baso # (Auto) (0.0-0.2) X10*3/uL Abs Immat Gran (auto) (0.00-0.03) X10*3/uL Absolute Neuts (auto) (2.0-8.3) X10*3/uL Absolute Nucleated RBC (0.0-0.012) X10*3/uL Nucleated RBC % (auto) (0.0-0.2) /100WBC Smear Tech's Comments PT (10.8-13.0) SEC INR (0.9-1.1) APTT (24.1-38.0) SEC VBG pH (7.32-7.43) VBG pCO2 mmHg VBG pO2 mmHg VBG HCO3 (22-26) mmol/L VBG O2 Saturation % VBG Base Excess mmol/L Sodium 137 (135-145) mmol/L Potassium 5.4 H (3.3-5.1) mmol/L Chloride 103 (96-108) mmol/L Carbon Dioxide 26 (22-29) mmol/L Anion Gap 13 (12-20) BUN 65 H (9-16) mg/dL Creatinine 4.66 H* (0.5-1.4) mg/dL Estim Creat Clear Calc 27.1 Estimated GFR 13 POC Glucose 131 H (60-115) mg/dL Random Glucose 116 H (60-115) mg/dL Lactic Acid (0.5-2.0) mmol/L Calcium 7.7 L D (8.4-10.2) mg/dL Total Bilirubin (0.0-1.0) mg/dL Direct Bilirubin (0.0-0.5) mg/dL AST (5-37) U/L ALT (0-40) U/L Alkaline Phosphatase (39-117) U/L Ammonia (13-55) umol/L Troponin I High Sens (<3.5-35.0) ng/L B-Natriuretic Peptide (<100) pg/mL Total Protein (6.5-8.0) g/dL Albumin (3.5-5.0) g/dL Urine Color YELLOW Urine Appearance CLOUDY Urine pH 5.0 (5.0-8.0) Ur Specific [place] >= 1.030 H (1.005-1.025) Urine Protein TRACE (NEG-TRACE) MG/DL Urine Glucose (UA) NEG (NEG) MG/DL Urine Ketones 15 (NEG) MG/DL Urine Blood TRACE (NEG) Urine Nitrite NEG (NEG) Ur Leukocyte Esterase 2+ H (NEG) Urine RBC 0-2 (0) /HPF Urine WBC 5-9 H (0-4) /HPF Ur Squamous Epith Cells TRACE /LPF Urine Bacteria TRACE /LPF COVID-19 ([facility]) (Negative) COVID-19 Clin Com ECG Data ECG #1: Attestation: I personally reviewed and interpreted this ECG as follows: Interpretation: Atrial fibrillation with ventricular rate 92 beats per minute low voltage nonspecific ST T wave changes no acute ischemia Critical Care Time Critical Care Time Critical Care Time: Yes Total Critical Care Time: 40 Attestation: I spent 40 minutes of critical care, with interventions, assessments, speaking to patient, and family. Discharge Plan Discharge Clinical Impression: Acute alteration in mental status Acute renal failure Qualifiers: Acute renal failure type: unspecified Qualified Code(s): N17.9 - Acute kidney failure, unspecified Patient Disposition: Admitted As Inpatient
--- NOTE | 2020-07-13 16:56 | ECG_ITS ---
Test Reason : SOB Blood Pressure : / mmHG Vent. Rate : 104 BPM Atrial Rate : 104 BPM P-R Int : 166 ms QRS Dur : 126 ms QT Int : 426 ms P-R-T Axes : 095 043 249 degrees QTc Int : 560 ms Sinus tachycardia with Premature supraventricular complexes and with occasional Premature ventricular complexes with junctional escape complexes Non-specific intra-ventricular conduction block Cannot rule out Anterior infarct (cited on or before 16-JUN-2020) Lateral injury pattern ACUTE [place] / STEMI Abnormal ECG When compared with ECG of 16-JUN-2020 11:57, Sinus rhythm has replaced Atrial fibrillation QRS duration has increased Serial changes of Anterior infarct Present Referred By: Israel Arnold Electronically Signed By:
[2020-07-13 17:54] LABS: Basophils Percent Auto 0.4 % (0-2); Eosinophils Absolute Auto 0.2 X10*3/uL (0.0-0.4); Eosinophils Percent Auto 1.7 % (0-4); Hematocrit 42.1 % (42-52); Hemoglobin 13.3 g/dl (14.0-18.0); Imm Gran Abs Auto 0.04 X10*3/uL (0.00-0.03); Imm Gran Pct Auto 0.4 % (0.0-0.4); Lymphocytes Absolute Auto 0.5 X10*3/uL (1.2-4.9); Lymphocytes Percent Auto 5.5 % (20-40); MANUAL DIFF FLAG SCAN; Mean Corpuscular HGB Conc 31.6 g/dl (31.0-36.0); Mean Corpuscular Hemoglobin 33.8 pg (27.0-33.0); Mean Corpuscular Volume 107.1 fL (80-98); Mean Platelet Volume 12.4 fL (9.4-12.4); Monocytes Absolute Auto 0.6 X10*3/uL (0.1-1.2); Monocytes Percent Auto 6.2 % (2-11); Neutrophils Absolute Auto 7.7 X10*3/uL (2.0-8.3); Neutrophils Percent Auto 85.8 % (45-73); Platelet Count 148 X10*3/uL (160-400); Red Blood Count 3.93 X10*6/uL (4.60-5.80); Red Cell Distribution Width 14.2 % (11.0-16.0); SCAN SMEAR FLAG 1
[2020-07-13 17:54] LABS: VBG Base Excess 0.9 mmol/L; VBG HCO3 28 mmol/L (22-26); VBG pCO2 57 mmHg; VBG pO2 49 mmHg
[2020-07-13 17:54] LABS: Venous Blood Gas Refer to POC result
[2020-07-13 18:04] LABS: Ammonia 34 umol/L (13-55)
[2020-07-13 18:07] LABS: Lactic Acid 1.6 mmol/L (0.5-2.0)
[2020-07-13 18:08] LABS: COVID-19 Test Negative (Negative)
[2020-07-13 18:15] LABS: Prothrombin Time 24.4 SEC (10.8-13.0)
[2020-07-13 18:18] LABS: Partial Thromboplastin Time 37.8 SEC (24.1-38.0)
[2020-07-13 18:21] LABS: B Type Natriuretic Peptide 130 pg/mL (<100); SLIDE REVIEW VERIFIED; Troponin-I High Sensitivity 43.3 ng/L (<3.5-35.0)
[2020-07-13 18:37] LABS: Alanine Aminotransferase 11 U/L (0-40); Albumin Level 3.7 g/dL (3.5-5.0); Alkaline Phosphatase 81 U/L (39-117); Anion Gap 18 (12-20); Aspartate Amino Transferase 16 U/L (5-37); Bilirubin Direct 0.3 mg/dL (0.0-0.5); Bilirubin Total 0.6 mg/dL (0.0-1.0); Blood Urea Nitrogen 74 mg/dL (9-16); Carbon Dioxide 28 mmol/L (22-29); Chloride 94 mmol/L (96-108); Creatinine Clr Calc Pharmacy 22.8; Estimated Glomerular Filt Rate 10; Glucose Random 124 mg/dL (60-115); Potassium 6.6 mmol/L (3.3-5.1); Sodium 133 mmol/L (135-145)
[2020-07-13] MEDS: Sodium Polystyrene Sulfon/Sorb 15 GM/60 ML ORAL.SUSP 30 GM PO (18:49)
[2020-07-13] MEDS: Calcium Gluconate/NaCl,Iso-Osm 2 GM/100 ML PLAST..BAG IV (18:50)
[2020-07-13] MEDS: Sodium Bicarbonate 8.4% 50 MEQ/50 ML VIAL IVPUSH (18:50)
[2020-07-13] MEDS: Insulin Regular, Human 100 UNIT/ML 3 ML VIAL IVPUSH (18:50)
[2020-07-13] MEDS: 0.9 % Sodium Chloride 1,000 ML 999 ML IVCONT (18:57)
[2020-07-13] MEDS: Albuterol Sulfate (0.083%) 2.5 MG/3 ML VIAL.NEB 5 MG INHALE (20:03)
[2020-07-13 20:31] LABS: Glucose, Whole Blood 131 mg/dL (60-115)
[2020-07-13 20:38] LABS: Glucose Urine UA NEG (NEG); Leukocyte Esterase Urine 2+ (NEG); Nitrite Urine NEG (NEG); Specific Gravity - Urine >= 1.030 (1.005-1.025); UACC Culture Trigger YES; Urine Blood TRACE (NEG); Urine Ketones 15 MG/DL (NEG); Urine Protein TRACE MG/DL (NEG-TRACE)
[2020-07-13 20:40] LABS: Appearance Urine CLOUDY; Color Urine YELLOW
[2020-07-13 21:02] LABS: Bacteria Urine TRACE /LPF; RBC Urine 0-2 /HPF (0); Squamous Epithelial Cell Urine TRACE /LPF
[2020-07-13 21:30] LABS: Anion Gap 13 (12-20); Blood Urea Nitrogen 65 mg/dL (9-16); Carbon Dioxide 26 mmol/L (22-29); Chloride 103 mmol/L (96-108); Creatinine Clr Calc Pharmacy 27.1; Estimated Glomerular Filt Rate 13; Glucose Random 116 mg/dL (60-115); Potassium 5.4 mmol/L (3.3-5.1); Sodium 137 mmol/L (135-145)
[2020-07-13 21:38] LABS: Calcium 7.7 mg/dL (8.4-10.2)
--- NOTE | 2020-07-13 22:10 | PM.IMHP ---
History of Present Illness Date of Service: 07/13/20 Chief Complaint: Confusion This is a 65-year-old male with past medical history of COPD, CHF, AFib on Xarelto, morbid obesity, DM, HTN, peripheral neuropathy and osteoarthritis who presents to the hospital with confusion as well as weakness. Patient was found to be 80% on room air by EMS. Son at bedside reports that this morning his friend went to visit him and patient was delusional and therefore they were concerned and brought him into the hospital. Of note patient was discharged from the hospital on 06/25 after being managed for hypercapnic respiratory failure with acute decompensated heart failure. He was discharged to rehab and left rehab on 07/08. Son reports that on leaving rehab he was doing very well, walking, talking, his baseline is alert oriented x3 but today appeared to be confused . Pt is oriented to self and place but not to time, his nausea was happening to him, why he is in the hospital. But he otherwise able to give good history. reports dysuria, frequency, and urgency. He otherwise denies any fever or chills, no abdominal pain nausea or vomiting, no diarrhea constipation, no lower extremity edema. Denies any increased cough or sputum production On arrival to the ED hemodynamically stable with temp of 98.4, heart rate of 86, blood pressure of 118/81, respiratory rate of 20, satting 99% on his baseline 3 L of oxygen Labs are significant for WBC count of 9.0, hemoglobin 13.3, PT of 24, INR of 2.0, pH of 7.3, pCO2 of 57, sodium of one hundred thirty-three, potassium 6.6, BUN of 74, creatinine of 5.53, UA that is positive for urine leukocyte Estrace as well as WBC COVID-19 negative Chest x-ray shows improvement when compared to prior exam Past medical history as below and confirmed with patient Review of Systems Review of Systems: Yes all other systems are reviewed and are negative [facility] Medical History Afib Back pain with history of spinal surgery CHF (congestive heart failure) Coagulopathy Diabetes History of gout HTN (hypertension) Hypercholesterolemia Hypertension Hypoventilation associated with obesity syndrome Knee osteoarthritis Morbid obesity Obstructive sleep apnea Peripheral neuropathy Restrictive lung disease secondary to obesity Social History Household Members: Significant Other Housing: Unknown / Unable to assess Do you presently have visiting nurse or other home services: Yes Unable to assess alcohol history related to: Refusing to respond Alcohol intake: current Alcohol intake frequency: 3 or more drinks per day Smoking Status: Never smoker Use of substances other than those prescribed or required for medical reasons: Unknown Currently Displaying Signs/Symptoms of Drug Intoxication Withdrawal: No Any prior treatment program specific to substance use: No Have you been hit, kicked, punched, or otherwise hurt by someone within the past year? If so, by whom?: No Do you feel safe in your current relationship?: Yes Is there a partner from a previous relationship who is making you feel unsafe now?: No Are you made to feel afraid or neglected: No Advance Directives: No Advance Directives Information Provided: No Do you have thoughts of harming others: None Do you have a plan to hurt others: No Plan Recently lost weight without trying: Unsure service: No Current occupational status: disabled Meds Allergies Allergy/AdvReac Type Severity Reaction Status Date / Time codeine [Codeine] Allergy Intermediate RASH Verified 06/16/20 11:48 Active Medications: Current Medications Generic Name Dose Route Start Last Admin Trade Name Freq PRN Reason Stop Dose Admin Acetaminophen 650 mg 07/13/20 21:56 Acetaminophen 325 Mg Tablet PO Q6H PRN Pain, Mild (Pain Scale 1-3) Acetazolamide 250 mg 07/14/20 09:00 Acetazolamide 250 Mg Tablet PO BID [facility] Allopurinol 300 mg 07/14/20 09:00 Allopurinol 300 Mg Tablet PO DAILY MARIANELA Bumetanide 2 mg 07/13/20 22:00 Bumetanide 1 Mg Tablet PO BID@0800,1700 [facility] Protocol Digoxin 0.25 mg 07/14/20 09:00 Digoxin 0.25 Mg Tablet PO DAILY MARIANELA Docusate Sodium 100 mg 07/13/20 21:56 Docusate Sodium 100 Mg Capsule PO DAILY PRN Constipation Folic Acid 1 mg 07/14/20 09:00 Folic Acid 1 Mg Tablet PO DAILY [facility] Ceftriaxone Sodium 1 gm/ 50 mls @ 100 mls/hr 07/13/20 22:00 Sodium Chloride IV Q24H MARIANELA Lisinopril 2.5 mg 07/14/20 09:00 Lisinopril 2.5 Mg Tablet PO DAILY [facility] Protocol Magnesium Oxide 400 mg 07/14/20 08:30 Magnesium Oxide 400 [facility] Metoprolol Tartrate 50 mg 07/14/20 09:00 Metoprolol Tartrate 50 Mg Tablet PO BID [facility] Protocol Ondansetron HCl 4 mg 07/13/20 21:56 Ondansetron Hcl 4 Mg/2 Ml Vial IVPUSH Q8H PRN Nausea and Vomiting Oxycodone HCl 5 mg 07/13/20 21:56 Oxycodone Hcl Immed Release 5 Mg Tablet PO Q6H PRN Pain (Scale Score 7-10) Oxycodone HCl 20 mg 07/14/20 09:00 Oxycodone Hcl Er 10 Mg Tab.Er.12h PO BID [facility] Pharmacy Consult 1 each 07/13/20 19:24 Consult Rx Perform Med Rec MISCELLANE ONCE PRN Consult order Rivaroxaban 20 mg 07/14/20 09:00 Rivaroxaban 20 Mg Tablet PO DAILY [facility] Senna/Docusate Sodium 1 tab 07/14/20 09:00 Sennosides/Docusate Sodium Tablet PO DAILY [facility] Sodium Chloride 3 ml 07/14/20 00:00 0.9 % Sodium Chloride Flush 3 Ml [facility] Spironolactone 25 mg 07/14/20 09:00 Spironolactone 25 Mg Tablet PO DAILY [facility] Protocol Home Medications Medication Instructions Recorded Confirmed Last Taken Type allopurinol 300 mg PO DAILY 06/16/20 07/13/20 Unknown History metformin 500 mg PO BID 06/16/20 07/13/20 Unknown History metoprolol tartrate 50 mg PO BID 06/16/20 07/13/20 Unknown History oxycodone 5 mg PO Q6H PRN 06/16/20 07/13/20 Unknown History oxycodone [OxyContin] 20 mg PO BID 06/16/20 07/13/20 Unknown History simvastatin 1 tab PO BEDTIME 06/16/20 07/13/20 Unknown History albuterol sulfate 2 puff INHALATION QID PRN 07/13/20 07/13/20 Unknown History bumetanide 2 mg PO BID@0800,1700 07/13/20 07/13/20 Unknown History folic acid 1 mg PO DAILY 07/13/20 07/13/20 Unknown History lisinopril 2.5 mg PO DAILY 07/13/20 07/13/20 Unknown History sennosides-docusate sodium 1 tab PO DAILY 07/13/20 07/13/20 Unknown History [Stimulant Laxative Plus] Physical Exam Vital Signs and Narrative: Vital Signs: Last Vital Signs Temp 98.4 F 07/13/20 19:17 Pulse 85 07/13/20 20:12 Resp 12 07/13/20 20:12 BP 113/38 L 07/13/20 20:12 Pulse Ox 97 07/13/20 20:12 Body Mass Index 52.2 Const: Other: Shaking General: cooperative, no acute distress, ill appearing and poor hygiene Orientation/consciousness: oriented to person and oriented to place Eyes: General: appearance normal, both eyes and all related structures Resp: Effort & Inspection: normal respiratory effort and able to speak in complete sentences Cardio: Rate: regular rate Rhythm: regular rhythm GI: Palpation (GI): Soft to palpation Auscultation: normal bowel sounds Skin: General skin exam: no rashes or lesions noted Neuro: General: oriented to person and oriented to place Cognition (Neuro): normal cognition Extrem: General: Yes normal to inspection and Yes no pedal edema Results Labs CBC and Chem 7: 07/13/20 17:40 07/13/20 20:56 Labs: Laboratory Results - last 24 hr 07/13/20 07/13/20 07/13/20 16:31 17:39 17:39 MCV MCH MCHC RDW Plt Count MPV Immature Gran % (Auto) Neut % (Auto) Lymph % (Auto) Bennett % (Auto) Eos % (Auto) Baso % (Auto) Lymph # (Auto) Bennett # (Auto) Eos # (Auto) Baso # (Auto) Abs Immat Gran (auto) Absolute Neuts (auto) Absolute Nucleated RBC Nucleated RBC % (auto) Smear Tech's Comments PT INR APTT VBG pH VBG pCO2 VBG pO2 VBG HCO3 VBG O2 Saturation VBG Base Excess Anion Gap Estim Creat Clear Calc Estimated GFR POC Glucose 121 H Random Glucose Lactic Acid 1.6 Calcium Total Bilirubin Direct Bilirubin AST ALT Alkaline Phosphatase Ammonia 34 Troponin I High Sens B-Natriuretic Peptide Total Protein Albumin Urine Color Urine Appearance Urine pH Ur Specific [place] Urine Protein Urine Glucose (UA) Urine Ketones Urine Blood Urine Nitrite Ur Leukocyte Esterase Urine RBC Urine WBC Ur Squamous Epith Cells Urine Bacteria COVID-19 ([facility]) COVID-19 Clin Com 07/13/20 07/13/20 07/13/20 17:40 17:40 17:40 MCV 107.1 H MCH 33.8 H MCHC 31.6 RDW 14.2 Plt Count 148 L MPV 12.4 Immature Gran % (Auto) 0.4 Neut % (Auto) 85.8 H Lymph % (Auto) 5.5 L Bennett % (Auto) 6.2 Eos % (Auto) 1.7 Baso % (Auto) 0.4 Lymph # (Auto) 0.5 L Bennett # (Auto) 0.6 Eos # (Auto) 0.2 Baso # (Auto) 0.0 Abs Immat Gran (auto) 0.04 H Absolute Neuts (auto) 7.7 Absolute Nucleated RBC 0.000 Nucleated RBC % (auto) 0.0 Smear Tech's Comments VERIFIED PT 24.4 H D INR 2.0 H APTT 37.8 VBG pH VBG pCO2 VBG pO2 VBG HCO3 VBG O2 Saturation VBG Base Excess Anion Gap 18 Estim Creat Clear Calc 22.8 Estimated GFR 10 POC Glucose Random Glucose 124 H Lactic Acid Calcium 9.0 Total Bilirubin 0.6 Direct Bilirubin 0.3 AST 16 ALT 11 Alkaline Phosphatase 81 Ammonia Troponin I High Sens B-Natriuretic Peptide Total Protein 7.0 Albumin 3.7 Urine Color Urine Appearance Urine pH Ur Specific [place] Urine Protein Urine Glucose (UA) Urine Ketones Urine Blood Urine Nitrite Ur Leukocyte Esterase Urine RBC Urine WBC Ur Squamous Epith Cells Urine Bacteria COVID-19 ([facility]) COVID-19 Clin Com 07/13/20 07/13/20 07/13/20 17:40 17:42 17:48 MCV MCH MCHC RDW Plt Count MPV Immature Gran % (Auto) Neut % (Auto) Lymph % (Auto) Bennett % (Auto) Eos % (Auto) Baso % (Auto) Lymph # (Auto) Bennett # (Auto) Eos # (Auto) Baso # (Auto) Abs Immat Gran (auto) Absolute Neuts (auto) Absolute Nucleated RBC Nucleated RBC % (auto) Smear Tech's Comments PT INR APTT VBG pH 7.30 L VBG pCO2 57 VBG pO2 49 VBG HCO3 28 H VBG O2 Saturation 74.0 VBG Base Excess 0.9 Anion Gap Estim Creat Clear Calc Estimated GFR POC Glucose Random Glucose Lactic Acid Calcium Total Bilirubin Direct Bilirubin AST ALT Alkaline Phosphatase Ammonia Troponin I High Sens 43.3 H B-Natriuretic Peptide 130 H Total Protein Albumin Urine Color Urine Appearance Urine pH Ur Specific [place] Urine Protein Urine Glucose (UA) Urine Ketones Urine Blood Urine Nitrite Ur Leukocyte Esterase Urine RBC Urine WBC Ur Squamous Epith Cells Urine Bacteria COVID-19 ([facility]) Negative COVID-19 Clin Com See Note 07/13/20 07/13/20 07/13/20 20:17 20:27 20:56 MCV MCH MCHC RDW Plt Count MPV Immature Gran % (Auto) Neut % (Auto) Lymph % (Auto) Bennett % (Auto) Eos % (Auto) Baso % (Auto) Lymph # (Auto) Bennett # (Auto) Eos # (Auto) Baso # (Auto) Abs Immat Gran (auto) Absolute Neuts (auto) Absolute Nucleated RBC Nucleated RBC % (auto) Smear Tech's Comments PT INR APTT VBG pH VBG pCO2 VBG pO2 VBG HCO3 VBG O2 Saturation VBG Base Excess Anion Gap 13 Estim Creat Clear Calc 27.1 Estimated GFR 13 POC Glucose 131 H Random Glucose 116 H Lactic Acid Calcium 7.7 L D Total Bilirubin Direct Bilirubin AST ALT Alkaline Phosphatase Ammonia Troponin I High Sens B-Natriuretic Peptide Total Protein Albumin Urine Color YELLOW Urine Appearance CLOUDY Urine pH 5.0 Ur Specific [place] >= 1.030 H Urine Protein TRACE Urine Glucose (UA) NEG Urine Ketones 15 Urine Blood TRACE Urine Nitrite NEG Ur Leukocyte Esterase 2+ H Urine RBC 0-2 Urine WBC 5-9 H Ur Squamous Epith Cells TRACE Urine Bacteria TRACE COVID-19 ([facility]) COVID-19 Clin Com Imaging Radiologist's Impressions: Impressions Chest X-Ray 07/13/20 16:56 IMPRESSION: Improved findings when compared to prior exam. Marked cardiomegaly still persists. Head CT 07/13/20 16:56 IMPRESSION: No acute intracranial pathology. Assessment and Plan (1) UTI (urinary tract infection): Status: Acute (2) Acute alteration in mental status: Status: Acute (3) Acute renal failure: Qualifiers: Acute renal failure type: unspecified Qualified Code(s): N17.9 - Acute kidney failure, unspecified Status: Acute (4) Hyperkalemia: Status: Acute This is a 65-year-old male with past medical history of COPD, CHF with recent admission and discharged after being managed for CHF presents today with confusion found to have sepsis # encephalopathy - most likely secondary to UTI - patient alert oriented to self and place but confused to time, sign of a sed reports that this not his baseline - UA positive, no leukocytosis, afebrile - will start on ceftriaxone - follow blood and urine cultures # UTI - positive UA - afebrile, no leukocytosis, no lactic acidosis Plan: - IV antibiotics - Follow cultures # KAYLA - most likely secondary to UTI as well as dehydration - patient was dry mucosa Plan: - start on IV fluid - urine studies - will hold nephrotoxic medication including Bumex - follow BMP # hyperkalemia - most likely secondary to KAYLA - no EKG changes - improved after receiving, albuterol, as well as Kayexalate # DM - hold oral antihyperglycemic - will start him on low-dose sliding scale once - diabetic diet # CHF - patient actually appears dehydrated and has no evidence of volume overload - will hold Bumex in the setting of acute renal failure -monitor for respiratory failure/distress # AFib - will hold digoxin setting of KAYLA - continue Xarelto # hypertension - patient blood pressure on the lower side - will hold all antihypertensives DVT prophylaxis: Xarelto
--- NOTE | 2020-07-13 22:13 | PC.NURSE ---
PT WAS ADMIT/DISCHARGE FROM [facility] 1 MONTH AGO FOR CHF/COPD. PT THEN TRANSFERRED TO [facility] [place] FOR [facility], PER DAUGHTER. FAMILY REPORTS PT HAD A HX OF CONSUMING 1/2 GALLON OF VODKA DAILY, STOPPED LAST MONTH. PT CAME HOME FROM REHAB 3 DAYS AGO, LIVING WITH GIRLFRIEND. DAUGHTER DOESN;T FEEL THAT PT WAS READY TO COME HOME. PT HAS LOST 80 POUNDS IN 1 MONTH, MOSTLY FLUID. PT WAS CONFUSED EARLIER TODAY AND TRANSPORTED BACK TO ER. PT HAS NOTICIBLE TREMOR TO UPPER EXRTREMITIES AND FACE, WHICH STARTED THIS MONTH, PER FAMILY. PT AWAKE AND ALERT, HAS A DISTANT STARE AT TIME, WHICH WILL STOP WHEN ASKING PT A QUESTION. DARK DISCOLORATION TO ANKLES, NO OPEN SKIN. PT REPORTS HE HAD A POSSIBLE FUNGAL INFECTION TO SCROTAL AREA. SKIN EXAMINED AND NO REDNESS NOTED. PT UNCOMFORTABLE, ASKED TO BE REPOSITIONED SEVERAL TIMES. PT WEIGHS 410 LBS.
--- NOTE | 2020-07-13 22:36 | PC.NURSE ---
Pt BP assessed and initially read low at 82/50 then reassessed only moments later and reads 144/115. Juan nAtonio aware, this RN asked if this RN should hold bumetadine. Per Juan Antonio, hold med.
[2020-07-13] MEDS: cefTRIAXone sodium 1 GM in 0.9 % Sodium Chloride 50 ML IV (22:39)
[2020-07-13] MEDS: Lactated Ringers 500 ML IVCONT (23:14)
[2020-07-13] MEDS: Lactated Ringers 1,000 ML 100 ML IVCONT (23:14)
--- NOTE | 2020-07-13 23:18 | PC.NURSE ---
Pt transferred to and reports improvement in comfort level. Pt IVF infusing appropriately. Pt VSS on 2L NC not baseline. Urinal placed in between pt's legs in attempt to obtain additional urine sample per orders as lab is unable to run tests off of previous scant urine sample. Pt bed in lowest locked position, rails raised, call barker within reach, bed alarm active and audible.
[2020-07-14] VITALS (10 sets, daily range): BP systolic 85–117; BP diastolic 42–81; PULSE 71–115; RESP 18–24; TEMP 36.1–37.2; O2SAT 91–95
--- NOTE | 2020-07-14 00:33 | PC.NURSE ---
REPORT GIVEN TO LEDY JAMES READY FOR TRANSPORT.
[2020-07-14] MEDS: 0.9 % Sodium Chloride 500 ML 999 ML IV (04:38)
[2020-07-14 08:17] LABS: Imm Gran Abs Auto 0.03 X10*3/uL (0.00-0.03); MANUAL DIFF FLAG SCAN; Red Cell Distribution Width 14.5 % (11.0-16.0); SCAN SMEAR FLAG 1
[2020-07-14 08:19] LABS: Basophils Percent Auto 0.3 % (0-2); Eosinophils Absolute Auto 0.2 X10*3/uL (0.0-0.4); Eosinophils Percent Auto 3.3 % (0-4); Hematocrit 37.5 % (42-52); Hemoglobin 11.7 g/dl (14.0-18.0); Imm Gran Pct Auto 0.4 % (0.0-0.4); Lymphocytes Absolute Auto 0.5 X10*3/uL (1.2-4.9); Lymphocytes Percent Auto 7.5 % (20-40); Mean Corpuscular HGB Conc 31.2 g/dl (31.0-36.0); Mean Corpuscular Hemoglobin 33.4 pg (27.0-33.0); Mean Corpuscular Volume 107.1 fL (80-98); Monocytes Absolute Auto 0.6 X10*3/uL (0.1-1.2); Monocytes Percent Auto 8.3 % (2-11); Neutrophils Absolute Auto 5.4 X10*3/uL (2.0-8.3); Neutrophils Percent Auto 80.2 % (45-73); White Blood Count 6.8 X10*3/uL (4.8-10.8)
[2020-07-14 08:25] LABS: PLT ABN DIST 1
[2020-07-14 08:40] LABS: Calcium 8.6 mg/dL (8.4-10.2); Magnesium 2.4 mg/dL (1.6-2.6); Phosphorus 4.7 mg/dL (2.7-4.5)
--- NOTE | 2020-07-14 08:44 | MHC.CM.PN ---
PATIENT LIVES WITH HIS SIGNIFICANT OTHER, KELLY. KELLY IS ALSO HCP.([phone]) NO COPY FOUND IN EXPANSE, BUT RECOVERED IN PREVIOUS ALLSCRIPTS REFERRAL. COPY PRINTED AND PLACED ON CHART PATIENT REPORTS THAT HE IS ACTIVE WITH A [facility], AND BELIEVES IT IS [facility]. REFERRAL PLACED TO INQUIRE. PATIENT HAS A WALKER AND CANE IN THE HOME, WELL O2 AND CPAP. HE IS ON 3L O2 AT BASELINE. CASE MANAGEMENT FOLLOWING FOR DISCHARGE PLANS. IMM 07/14 IN CHART.
[2020-07-14 08:47] LABS: Anion Gap 18 (12-20); Blood Urea Nitrogen 71 mg/dL (9-16); Calcium 8.5 mg/dL (8.4-10.2); Carbon Dioxide 24 mmol/L (22-29); Chloride 99 mmol/L (96-108); Creatinine Clr Calc Pharmacy 23.6; Estimated Glomerular Filt Rate 11; Glucose Random 99 mg/dL (60-115); Potassium 5.4 mmol/L (3.3-5.1); Sodium 136 mmol/L (135-145)
[2020-07-14 08:50] LABS: SLIDE REVIEW VERIFIED
[2020-07-14] MEDS: 0.9 % Sodium Chloride 1,000 ML 75 ML IVCONT (09:13)
[2020-07-14] MEDS: 0.9 % Sodium Chloride Flush 3 ML SYRINGE IVFLUSH ×2 (09:14→16:07)
[2020-07-14] MEDS: Thiamine HCL 100 MG TABLET PO (09:16)
[2020-07-14] MEDS: Sennosides/Docusate Sodium TABLET 1 TAB PO (09:16)
[2020-07-14] MEDS: Folic Acid 1 MG TABLET PO (09:16)
[2020-07-14] MEDS: oxyCODONE HCl ER 10 MG TAB.ER.12H 20 MG PO ×2 (09:18→20:33)
[2020-07-14] MEDS: Metoprolol Tartrate 50 MG TABLET PO (09:18)
[2020-07-14] MEDS: Magnesium Oxide 400 MG TABLET PO (09:23)
[2020-07-14] MEDS: Rivaroxaban 20 MG TABLET PO (09:23)
[2020-07-14 12:28] LABS: Adenovirus PCR Not Detected (Not Detect.); Bordetella parapertussis PCR Not Detected (Not Detect.); Bordetella pertussis PCR Not Detected (Not Detect.); Chlamydia pneumoniae PCR Not Detected (Not Detect.); Coronavirus 229E PCR Not Detected (Not Detect.); Coronavirus HKU1 PCR Not Detected (Not Detect.); Coronavirus NL63 PCR Not Detected (Not Detect.); Coronavirus OC43 PCR Not Detected (Not Detect.); Human metapneumovirus PCR Not Detected (Not Detect.); Influenza A PCR Not Detected (Not Detect.); Influenza B PCR Not Detected (Not Detect.); Mycoplasma pneumoniae PCR Not Detected (Not Detect.); Parainfluenza 1 PCR Not Detected (Not Detect.); Parainfluenza 2 PCR Not Detected (Not Detect.); Parainfluenza 3 PCR Not Detected (Not Detect.); Parainfluenza 4 PCR Not Detected (Not Detect.); RSV PCR Not Detected (Not Detect.); Rhino/Enterovirus PCR Not Detected (Not Detect.); SARS-CoV-2 PCR Not Detected (Not Detect.)
--- NOTE | 2020-07-14 13:28 | P.PNIM_ITS ---
Subjective Subjective Date of Service: 07/14/20 Interval History: somnolent but arousable and conversant no cough ongoing dysuria Physical Exam Vital Signs: Vital Signs: Last Vital Signs Temp 98.0 F 07/14/20 07:32 Pulse 102 H 07/14/20 09:18 Resp 20 07/14/20 07:32 BP 117/81 07/14/20 09:18 Pulse Ox 92 07/14/20 07:32 Body Mass Index 52.2 Gen: NAD HEENT: sclera anicteric, moist mucus membranes Neck: supple Lungs: clear bliaterally Heart: irregular, distant heart sounds due to body habitus Abd: morbidly obese Ext: chronic venous stasis dermatitis Skin: warm/well-perfused Neuro: alert and oriented x3, no focal findings Psych: appropriate affect Objective Data Current Medications Generic Name Dose Route Start Last Admin Trade Name Freq PRN Reason Stop Dose Admin Acetaminophen 650 mg 07/13/20 21:56 Acetaminophen 325 Mg Tablet PO Q6H PRN Pain, Mild (Pain Scale 1-3) Docusate Sodium 100 mg 07/13/20 21:56 Docusate Sodium 100 Mg Capsule PO DAILY PRN Constipation Folic Acid 1 mg 07/14/20 09:00 07/14/20 09:16 Folic Acid 1 Mg Tablet PO 1 mg DAILY MARIANELA Administration Ceftriaxone Sodium 1 gm/ 50 mls @ 100 mls/hr 07/13/20 22:00 07/13/20 23:13 Sodium Chloride IV Infused Q24H MARIANELA Infusion Sodium Chloride 1,000 mls @ 75 mls/hr 07/14/20 09:00 07/14/20 09:13 Ns IVCONT 07/14/20 22:19 75 mls/hr .[id number] MARIANELA Administration Magnesium Oxide 400 mg 07/14/20 08:30 07/14/20 09:23 Magnesium Oxide 400 Mg Tablet PO 400 mg BIDPC MARIANELA Administration Metoprolol Tartrate 50 mg 07/14/20 09:00 07/14/20 09:18 Metoprolol Tartrate 50 Mg Tablet PO 50 mg BID MARIANELA Administration Protocol Ondansetron HCl 4 mg 07/13/20 21:56 Ondansetron Hcl 4 Mg/2 Ml Vial IVPUSH Q8H PRN Nausea and Vomiting Oxycodone HCl 5 mg 07/13/20 21:56 Oxycodone Hcl Immed Release 5 Mg Tablet PO Q6H PRN Pain (Scale Score 7-10) Oxycodone HCl 20 mg 07/14/20 09:00 07/14/20 09:18 Oxycodone Hcl Er 10 Mg Tab.Er.12h PO 20 mg BID MARIANELA Administration Pharmacy Consult 1 each 07/13/20 19:24 Consult Rx Perform Med Rec MISCELLANE ONCE PRN Consult order Rivaroxaban 20 mg 07/14/20 09:00 07/14/20 09:23 Rivaroxaban 20 Mg Tablet PO 20 mg DAILY MARIANELA Administration Senna/Docusate Sodium 1 tab 07/14/20 09:00 07/14/20 09:16 Sennosides/Docusate Sodium Tablet PO 1 tab DAILY MARIANELA Administration Sodium Chloride 3 ml 07/14/20 00:00 07/14/20 09:14 0.9 % Sodium Chloride Flush 3 Ml Syringe IVFLUSH 3 ml QSHIFT MARIANELA Administration Thiamine HCl 100 mg 07/14/20 09:00 07/14/20 09:16 Thiamine Hcl 100 Mg Tablet PO 100 mg DAILY MARIANELA Administration Labs CBC & Chem 7: 07/14/20 07:15 07/14/20 07:15 Labs: Laboratory Results - last 24 hr 07/13/20 07/13/20 07/13/20 16:31 17:39 17:39 WBC RBC Hgb Hct MCV MCH MCHC RDW Plt Count MPV Immature Gran % (Auto) Neut % (Auto) Lymph % (Auto) [place] % (Auto) Eos % (Auto) Baso % (Auto) Lymph # (Auto) [place] # (Auto) Eos # (Auto) Baso # (Auto) Abs Immat Gran (auto) Absolute Neuts (auto) Absolute Nucleated RBC Nucleated RBC % (auto) Smear Tech's Comments PT INR APTT VBG pH VBG pCO2 VBG pO2 VBG HCO3 VBG O2 Saturation VBG Base Excess Sodium Potassium Chloride Carbon Dioxide Anion Gap BUN Creatinine Estim Creat Clear Calc Estimated GFR POC Glucose 121 H Random Glucose Lactic Acid 1.6 Calcium Phosphorus Magnesium Total Bilirubin Direct Bilirubin AST ALT Alkaline Phosphatase Ammonia 34 Troponin I High Sens B-Natriuretic Peptide Total Protein Albumin Urine Color Urine Appearance Urine pH Ur Specific [place] Urine Protein Urine Glucose (UA) Urine Ketones Urine Blood Urine Nitrite Ur Leukocyte Esterase Urine RBC Urine WBC Ur Squamous Epith Cells Urine Bacteria Respiratory Panel [place] Adenovirus (Rapid PCR) B.pert (TEM-PCR) B.parapertussis DNA PCR C. pneumoniae DNA (PCR) Coronavirus OC43 (PCR) Coronavirus HKU1 (PCR) Coronavirus 229E (PCR) COVID-19 ([facility]) COVID-19 Clin Com Coronavirus NL63 (PCR) Human Metapneumovir PCR Influenza A (RT-PCR) Influenza B (RT-PCR) M. pneumoniae (PCR) Parainfluenza 1 (PCR) Parainfluenza 2 (PCR) Parainfluenza 3 (PCR) Parainfluenza 4 (PCR) RSV (PCR) Entero/Rhino (PCR) SARS-CoV-2 RNA (RT-PCR) 07/13/20 07/13/20 07/13/20 17:40 17:40 17:40 WBC 9.0 RBC 3.93 L Hgb 13.3 L Hct 42.1 MCV 107.1 H MCH 33.8 H MCHC 31.6 RDW 14.2 Plt Count 148 L MPV 12.4 Immature Gran % (Auto) 0.4 Neut % (Auto) 85.8 H Lymph % (Auto) 5.5 L [place] % (Auto) 6.2 Eos % (Auto) 1.7 Baso % (Auto) 0.4 Lymph # (Auto) 0.5 L [place] # (Auto) 0.6 Eos # (Auto) 0.2 Baso # (Auto) 0.0 Abs Immat Gran (auto) 0.04 H Absolute Neuts (auto) 7.7 Absolute Nucleated RBC 0.000 Nucleated RBC % (auto) 0.0 Smear Tech's Comments VERIFIED PT 24.4 H D INR 2.0 H APTT 37.8 VBG pH VBG pCO2 VBG pO2 VBG HCO3 VBG O2 Saturation VBG Base Excess Sodium 133 L Potassium 6.6 H* D Chloride 94 L Carbon Dioxide 28 Anion Gap 18 BUN 74 H D Creatinine 5.53 H* Estim Creat Clear Calc 22.8 Estimated GFR 10 POC Glucose Random Glucose 124 H Lactic Acid Calcium 9.0 Phosphorus Magnesium Total Bilirubin 0.6 Direct Bilirubin 0.3 AST 16 ALT 11 Alkaline Phosphatase 81 Ammonia Troponin I High Sens B-Natriuretic Peptide Total Protein 7.0 Albumin 3.7 Urine Color Urine Appearance Urine pH Ur Specific [place] Urine Protein Urine Glucose (UA) Urine Ketones Urine Blood Urine Nitrite Ur Leukocyte Esterase Urine RBC Urine WBC Ur Squamous Epith Cells Urine Bacteria Respiratory Panel [place] Adenovirus (Rapid PCR) B.pert (TEM-PCR) B.parapertussis DNA PCR C. pneumoniae DNA (PCR) Coronavirus OC43 (PCR) Coronavirus HKU1 (PCR) Coronavirus 229E (PCR) COVID-19 ([facility]) COVID-19 Clin Com Coronavirus NL63 (PCR) Human Metapneumovir PCR Influenza A (RT-PCR) Influenza B (RT-PCR) M. pneumoniae (PCR) Parainfluenza 1 (PCR) Parainfluenza 2 (PCR) Parainfluenza 3 (PCR) Parainfluenza 4 (PCR) RSV (PCR) Entero/Rhino (PCR) SARS-CoV-2 RNA (RT-PCR) 07/13/20 07/13/20 07/13/20 17:40 17:42 17:48 WBC RBC Hgb Hct MCV MCH MCHC RDW Plt Count MPV Immature Gran % (Auto) Neut % (Auto) Lymph % (Auto) [place] % (Auto) Eos % (Auto) Baso % (Auto) Lymph # (Auto) [place] # (Auto) Eos # (Auto) Baso # (Auto) Abs Immat Gran (auto) Absolute Neuts (auto) Absolute Nucleated RBC Nucleated RBC % (auto) Smear Tech's Comments PT INR APTT VBG pH 7.30 L VBG pCO2 57 VBG pO2 49 VBG HCO3 28 H VBG O2 Saturation 74.0 VBG Base Excess 0.9 Sodium Potassium Chloride Carbon Dioxide Anion Gap BUN Creatinine Estim Creat Clear Calc Estimated GFR POC Glucose Random Glucose Lactic Acid Calcium Phosphorus Magnesium Total Bilirubin Direct Bilirubin AST ALT Alkaline Phosphatase Ammonia Troponin I High Sens 43.3 H B-Natriuretic Peptide 130 H Total Protein Albumin Urine Color Urine Appearance Urine pH Ur Specific [place] Urine Protein Urine Glucose (UA) Urine Ketones Urine Blood Urine Nitrite Ur Leukocyte Esterase Urine RBC Urine WBC Ur Squamous Epith Cells Urine Bacteria Respiratory Panel [place] Adenovirus (Rapid PCR) B.pert (TEM-PCR) B.parapertussis DNA PCR C. pneumoniae DNA (PCR) Coronavirus OC43 (PCR) Coronavirus HKU1 (PCR) Coronavirus 229E (PCR) COVID-19 ([facility]) Negative COVID-19 Clin Com See Note Coronavirus NL63 (PCR) Human Metapneumovir PCR Influenza A (RT-PCR) Influenza B (RT-PCR) M. pneumoniae (PCR) Parainfluenza 1 (PCR) Parainfluenza 2 (PCR) Parainfluenza 3 (PCR) Parainfluenza 4 (PCR) RSV (PCR) Entero/Rhino (PCR) SARS-CoV-2 RNA (RT-PCR) 07/13/20 07/13/20 07/13/20 20:17 20:27 20:56 WBC RBC Hgb Hct MCV MCH MCHC RDW Plt Count MPV Immature Gran % (Auto) Neut % (Auto) Lymph % (Auto) [place] % (Auto) Eos % (Auto) Baso % (Auto) Lymph # (Auto) [place] # (Auto) Eos # (Auto) Baso # (Auto) Abs Immat Gran (auto) Absolute Neuts (auto) Absolute Nucleated RBC Nucleated RBC % (auto) Smear Tech's Comments PT INR APTT VBG pH VBG pCO2 VBG pO2 VBG HCO3 VBG O2 Saturation VBG Base Excess Sodium 137 Potassium 5.4 H Chloride 103 Carbon Dioxide 26 Anion Gap 13 BUN 65 H Creatinine 4.66 H* Estim Creat Clear Calc 27.1 Estimated GFR 13 POC Glucose 131 H Random Glucose 116 H Lactic Acid Calcium 7.7 L D Phosphorus Magnesium Total Bilirubin Direct Bilirubin AST ALT Alkaline Phosphatase Ammonia Troponin I High Sens B-Natriuretic Peptide Total Protein Albumin Urine Color YELLOW Urine Appearance CLOUDY Urine pH 5.0 Ur Specific [place] >= 1.030 H Urine Protein TRACE Urine Glucose (UA) NEG Urine Ketones 15 Urine Blood TRACE Urine Nitrite NEG Ur Leukocyte Esterase 2+ H Urine RBC 0-2 Urine WBC 5-9 H Ur Squamous Epith Cells TRACE Urine Bacteria TRACE Respiratory Panel [place] Adenovirus (Rapid PCR) B.pert (TEM-PCR) B.parapertussis DNA PCR C. pneumoniae DNA (PCR) Coronavirus OC43 (PCR) Coronavirus HKU1 (PCR) Coronavirus 229E (PCR) COVID-19 ([facility]) COVID-19 Clin Com Coronavirus NL63 (PCR) Human Metapneumovir PCR Influenza A (RT-PCR) Influenza B (RT-PCR) M. pneumoniae (PCR) Parainfluenza 1 (PCR) Parainfluenza 2 (PCR) Parainfluenza 3 (PCR) Parainfluenza 4 (PCR) RSV (PCR) Entero/Rhino (PCR) SARS-CoV-2 RNA (RT-PCR) 07/14/20 07/14/20 07/14/20 07:15 07:15 07:15 WBC 6.8 RBC 3.50 L Hgb 11.7 L Hct 37.5 L MCV 107.1 H MCH 33.4 H MCHC 31.2 RDW 14.5 Plt Count TNP MPV 13.0 H Immature Gran % (Auto) 0.4 Neut % (Auto) 80.2 H Lymph % (Auto) 7.5 L [place] % (Auto) 8.3 Eos % (Auto) 3.3 Baso % (Auto) 0.3 Lymph # (Auto) 0.5 L [place] # (Auto) 0.6 Eos # (Auto) 0.2 Baso # (Auto) 0.0 Abs Immat Gran (auto) 0.03 Absolute Neuts (auto) 5.4 Absolute Nucleated RBC 0.000 Nucleated RBC % (auto) 0.0 Smear Tech's Comments VERIFIED PT INR APTT VBG pH VBG pCO2 VBG pO2 VBG HCO3 VBG O2 Saturation VBG Base Excess Sodium 136 Potassium 5.4 H Chloride 99 Carbon Dioxide 24 Anion Gap 18 BUN 71 H Creatinine 5.34 H* Estim Creat Clear Calc 23.6 Estimated GFR 11 POC Glucose Random Glucose 99 Lactic Acid Calcium 8.5 D 8.6 Phosphorus 4.7 H Magnesium 2.4 Total Bilirubin Direct Bilirubin AST ALT Alkaline Phosphatase Ammonia Troponin I High Sens B-Natriuretic Peptide Total Protein Albumin Urine Color Urine Appearance Urine pH Ur Specific [place] Urine Protein Urine Glucose (UA) Urine Ketones Urine Blood Urine Nitrite Ur Leukocyte Esterase Urine RBC Urine WBC Ur Squamous Epith Cells Urine Bacteria Respiratory Panel [place] Adenovirus (Rapid PCR) B.pert (TEM-PCR) B.parapertussis DNA PCR C. pneumoniae DNA (PCR) Coronavirus OC43 (PCR) Coronavirus HKU1 (PCR) Coronavirus 229E (PCR) COVID-19 ([facility]) COVID-19 Clin Com Coronavirus NL63 (PCR) Human Metapneumovir PCR Influenza A (RT-PCR) Influenza B (RT-PCR) M. pneumoniae (PCR) Parainfluenza 1 (PCR) Parainfluenza 2 (PCR) Parainfluenza 3 (PCR) Parainfluenza 4 (PCR) RSV (PCR) Entero/Rhino (PCR) SARS-CoV-2 RNA (RT-PCR) 07/14/20 12:20 WBC RBC Hgb Hct MCV MCH MCHC RDW Plt Count MPV Immature Gran % (Auto) Neut % (Auto) Lymph % (Auto) [place] % (Auto) Eos % (Auto) Baso % (Auto) Lymph # (Auto) [place] # (Auto) Eos # (Auto) Baso # (Auto) Abs Immat Gran (auto) Absolute Neuts (auto) Absolute Nucleated RBC Nucleated RBC % (auto) Smear Tech's Comments PT INR APTT VBG pH VBG pCO2 VBG pO2 VBG HCO3 VBG O2 Saturation VBG Base Excess Sodium Potassium Chloride Carbon Dioxide Anion Gap BUN Creatinine Estim Creat Clear Calc Estimated GFR POC Glucose Random Glucose Lactic Acid Calcium Phosphorus Magnesium Total Bilirubin Direct Bilirubin AST ALT Alkaline Phosphatase Ammonia Troponin I High Sens B-Natriuretic Peptide Total Protein Albumin Urine Color Urine Appearance Urine pH Ur Specific [place] Urine Protein Urine Glucose (UA) Urine Ketones Urine Blood Urine Nitrite Ur Leukocyte Esterase Urine RBC Urine WBC Ur Squamous Epith Cells Urine Bacteria Respiratory Panel [place] See Note Adenovirus (Rapid PCR) Not Detected B.pert (TEM-PCR) Not Detected B.parapertussis DNA PCR Not Detected C. pneumoniae DNA (PCR) Not Detected Coronavirus OC43 (PCR) Not Detected Coronavirus HKU1 (PCR) Not Detected Coronavirus 229E (PCR) Not Detected COVID-19 ([facility]) COVID-19 Clin Com Coronavirus NL63 (PCR) Not Detected Human Metapneumovir PCR Not Detected Influenza A (RT-PCR) Not Detected Influenza B (RT-PCR) Not Detected M. pneumoniae (PCR) Not Detected Parainfluenza 1 (PCR) Not Detected Parainfluenza 2 (PCR) Not Detected Parainfluenza 3 (PCR) Not Detected Parainfluenza 4 (PCR) Not Detected RSV (PCR) Not Detected Entero/Rhino (PCR) Not Detected SARS-CoV-2 RNA (RT-PCR) Not Detected ITS Impressions Chest X-Ray 07/13/20 16:56 IMPRESSION: Improved findings when compared to prior exam. Marked cardiomegaly still persists. Head CT 07/13/20 16:56 IMPRESSION: No acute intracranial pathology. Assessment and Plan (1) Hyperkalemia: Status: Acute (2) UTI (urinary tract infection): Status: Acute (3) Sepsis: Status: Acute (4) Acute renal failure: Status: Acute (5) Acute alteration in mental status: Status: Acute Assessment and Plan: 65yo M with morbid obesity, CHF, AF on rivaroxaban, COPD, DM2, HTN, recent admission 06/16-06/25/20 for acute hypercapneic respiratory failure and ADHF likely secondary to NATI/OHS discharged to short-term rehab then home 07/10/20 presented to hospital with confusion, weakness, hypoxia admitted with KAYLA # KAYLA - hold diuretics and will give 1L NS, check FE urea, check renal US, consult N ephrology # hyperK - improved after SPS + albuterol, will give 1 more dose SPS; hold spironolactone # UTI - ceftriaxone d#2, follow UCx/BCx # acute encephalopathy - likely due to KAYLA + infection # AF - hold digoxin, continue metoprolol - continue rivaroxaban # CHF - hold diuretics as above; continue metoprolol # chronic hypercarbic respiratory failure - BiPAP. check on status of home Trilogy ventilator. # DM2 - correction-dose lispro # VTE ppx - rivaroxaban
[2020-07-14] MEDS: oxyCODONE HCl Immed Release 5 MG TABLET PO (15:56)
[2020-07-14] MEDS: Sodium Polystyrene Sulfon/Sorb 15 GM/60 ML ORAL.SUSP 30 GM PO (16:03)
[2020-07-14 17:16] LABS: Sodium Urine Random < 20.0 mmol/L
[2020-07-14 20:26] LABS: Glucose, Whole Blood 105 mg/dL (60-115)
[2020-07-14 20:30] LABS: Glucose, Whole Blood 108 mg/dL (60-115)
[2020-07-14] MEDS: cefTRIAXone sodium 1 GM in 0.9 % Sodium Chloride 50 ML IV (21:59)
[2020-07-15] VITALS (10 sets, daily range): BP systolic 78–157; BP diastolic 40–82; PULSE 81–99; RESP 16–21; TEMP 36.3–37.4; O2SAT 91–97
[2020-07-15] MEDS: oxyCODONE HCl Immed Release 5 MG TABLET PO ×2 (05:39→14:43)
[2020-07-15 07:21] LABS: Glucose, Whole Blood 98 mg/dL (60-115)
[2020-07-15 07:56] LABS: VBG Base Excess 2.1 mmol/L; VBG HCO3 27 mmol/L (22-26); VBG pCO2 47 mmHg; VBG pH 7.37 (7.32-7.43); VBG pO2 43 mmHg
[2020-07-15 07:58] LABS: Basophils Percent Auto 0.3 % (0-2); Eosinophils Absolute Auto 0.3 X10*3/uL (0.0-0.4); Hematocrit 34.9 % (42-52); Hemoglobin 11.2 g/dl (14.0-18.0); Imm Gran Abs Auto 0.02 X10*3/uL (0.00-0.03); Imm Gran Pct Auto 0.3 % (0.0-0.4); Lymphocytes Absolute Auto 0.5 X10*3/uL (1.2-4.9); Lymphocytes Percent Auto 7.3 % (20-40); MANUAL DIFF FLAG SCAN; Mean Corpuscular HGB Conc 32.1 g/dl (31.0-36.0); Mean Corpuscular Hemoglobin 34.1 pg (27.0-33.0); Mean Corpuscular Volume 106.4 fL (80-98); Mean Platelet Volume 12.4 fL (9.4-12.4); Monocytes Absolute Auto 0.6 X10*3/uL (0.1-1.2); Monocytes Percent Auto 9.5 % (2-11); Neutrophils Percent Auto 78.6 % (45-73); Platelet Count 107 X10*3/uL (160-400); Red Blood Count 3.28 X10*6/uL (4.60-5.80); Red Cell Distribution Width 14.4 % (11.0-16.0); SCAN SMEAR FLAG 1; White Blood Count 6.4 X10*3/uL (4.8-10.8)
[2020-07-15 08:02] LABS: Venous Blood Gas Refer to POC result
[2020-07-15 08:24] LABS: Anion Gap 18 (12-20); Blood Urea Nitrogen 70 mg/dL (9-16); Calcium 8.4 mg/dL (8.4-10.2); Carbon Dioxide 25 mmol/L (22-29); Chloride 99 mmol/L (96-108); Creatinine Clr Calc Pharmacy 33.7; Estimated Glomerular Filt Rate 16; Glucose Random 94 mg/dL (60-115); Magnesium 2.3 mg/dL (1.6-2.6); Potassium 4.6 mmol/L (3.3-5.1); Sodium 137 mmol/L (135-145)
[2020-07-15 08:27] LABS: B Type Natriuretic Peptide 408 pg/mL (<100); SLIDE REVIEW VERIFIED
--- NOTE | 2020-07-15 09:07 | PM.PNNEP ---
Subjective Subjective Date of Service: 07/15/20 Physical Exam Vital Signs: Vital Signs: Last Vital Signs Temp 99.4 F 07/15/20 08:00 Pulse 91 07/15/20 08:00 Resp 16 07/15/20 08:00 BP 107/58 L 07/15/20 08:00 Pulse Ox 96 07/15/20 08:00 Body Mass Index 52.2 Objective Data Labs CBC & Chem 7: 07/15/20 07:36 07/15/20 07:36 Labs: Laboratory Results - last 24 hr 07/14/20 07/14/20 07/14/20 12:20 15:46 20:17 WBC RBC Hgb Hct MCV MCH MCHC RDW Plt Count MPV Immature Gran % (Auto) Neut % (Auto) Lymph % (Auto) [place] % (Auto) Eos % (Auto) Baso % (Auto) Lymph # (Auto) [place] # (Auto) Eos # (Auto) Baso # (Auto) Abs Immat Gran (auto) Absolute Neuts (auto) Absolute Nucleated RBC Nucleated RBC % (auto) Smear Tech's Comments VBG pH VBG pCO2 VBG pO2 VBG HCO3 VBG O2 Saturation VBG Base Excess Sodium Potassium Chloride Carbon Dioxide Anion Gap BUN Creatinine Estim Creat Clear Calc Estimated GFR POC Glucose 105 Random Glucose Calcium Magnesium B-Natriuretic Peptide Ur Random Sodium < 20.0 Urine Creatinine 267.40 Respiratory Panel [place] See Note Adenovirus (Rapid PCR) Not Detected B.pert (TEM-PCR) Not Detected B.parapertussis DNA PCR Not Detected C. pneumoniae DNA (PCR) Not Detected Coronavirus OC43 (PCR) Not Detected Coronavirus HKU1 (PCR) Not Detected Coronavirus 229E (PCR) Not Detected Coronavirus NL63 (PCR) Not Detected Human Metapneumovir PCR Not Detected Influenza A (RT-PCR) Not Detected Influenza B (RT-PCR) Not Detected M. pneumoniae (PCR) Not Detected Parainfluenza 1 (PCR) Not Detected Parainfluenza 2 (PCR) Not Detected Parainfluenza 3 (PCR) Not Detected Parainfluenza 4 (PCR) Not Detected RSV (PCR) Not Detected Entero/Rhino (PCR) Not Detected SARS-CoV-2 RNA (RT-PCR) Not Detected 07/14/20 07/15/20 07/15/20 20:24 07:10 07:36 WBC 6.4 RBC 3.28 L Hgb 11.2 L Hct 34.9 L MCV 106.4 H MCH 34.1 H MCHC 32.1 RDW 14.4 Plt Count 107 L D MPV 12.4 Immature Gran % (Auto) 0.3 Neut % (Auto) 78.6 H Lymph % (Auto) 7.3 L [place] % (Auto) 9.5 Eos % (Auto) 4.0 Baso % (Auto) 0.3 Lymph # (Auto) 0.5 L [place] # (Auto) 0.6 Eos # (Auto) 0.3 Baso # (Auto) 0.0 Abs Immat Gran (auto) 0.02 Absolute Neuts (auto) 5.0 Absolute Nucleated RBC 0.000 Nucleated RBC % (auto) 0.0 Smear Tech's Comments VERIFIED VBG pH VBG pCO2 VBG pO2 VBG HCO3 VBG O2 Saturation VBG Base Excess Sodium Potassium Chloride Carbon Dioxide Anion Gap BUN Creatinine Estim Creat Clear Calc Estimated GFR POC Glucose 108 98 Random Glucose Calcium Magnesium B-Natriuretic Peptide Ur Random Sodium Urine Creatinine Respiratory Panel [place] Adenovirus (Rapid PCR) B.pert (TEM-PCR) B.parapertussis DNA PCR C. pneumoniae DNA (PCR) Coronavirus OC43 (PCR) Coronavirus HKU1 (PCR) Coronavirus 229E (PCR) Coronavirus NL63 (PCR) Human Metapneumovir PCR Influenza A (RT-PCR) Influenza B (RT-PCR) M. pneumoniae (PCR) Parainfluenza 1 (PCR) Parainfluenza 2 (PCR) Parainfluenza 3 (PCR) Parainfluenza 4 (PCR) RSV (PCR) Entero/Rhino (PCR) SARS-CoV-2 RNA (RT-PCR) 07/15/20 07/15/20 07/15/20 07:36 07:36 07:50 WBC RBC Hgb Hct MCV MCH MCHC RDW Plt Count MPV Immature Gran % (Auto) Neut % (Auto) Lymph % (Auto) [place] % (Auto) Eos % (Auto) Baso % (Auto) Lymph # (Auto) [place] # (Auto) Eos # (Auto) Baso # (Auto) Abs Immat Gran (auto) Absolute Neuts (auto) Absolute Nucleated RBC Nucleated RBC % (auto) Smear Tech's Comments VBG pH 7.37 VBG pCO2 47 VBG pO2 43 VBG HCO3 27 H VBG O2 Saturation 68.0 VBG Base Excess 2.1 Sodium 137 Potassium 4.6 Chloride 99 Carbon Dioxide 25 Anion Gap 18 BUN 70 H Creatinine 3.75 H Estim Creat Clear Calc 33.7 Estimated GFR 16 POC Glucose Random Glucose 94 Calcium 8.4 Magnesium 2.3 B-Natriuretic Peptide 408 H Ur Random Sodium Urine Creatinine Respiratory Panel [place] Adenovirus (Rapid PCR) B.pert (TEM-PCR) B.parapertussis DNA PCR C. pneumoniae DNA (PCR) Coronavirus OC43 (PCR) Coronavirus HKU1 (PCR) Coronavirus 229E (PCR) Coronavirus NL63 (PCR) Human Metapneumovir PCR Influenza A (RT-PCR) Influenza B (RT-PCR) M. pneumoniae (PCR) Parainfluenza 1 (PCR) Parainfluenza 2 (PCR) Parainfluenza 3 (PCR) Parainfluenza 4 (PCR) RSV (PCR) Entero/Rhino (PCR) SARS-CoV-2 RNA (RT-PCR) Microbiology Microbiology Results: Microbiology 07/13/20 17:53 Blood - Venous Blood Culture - Preliminary No growth after 24 hours. 07/13/20 17:38 Blood - Venous Blood Culture - Preliminary No growth after 24 hours. 07/13/20 Unknown Urine clean catch - Clean Catch Midstream Urine Culture - Final Strep agalactiae (Grp B) Assessment & Plan Assessment and plan (1) Acute renal failure: Problem details: KAYLA and Hyperkalemia KAYLA due to hypoperfusion r/o Obstruction Hold diuretics Keep SBP > 100 No indication for dialysis Consult dictated Status: Acute Time Spent With Patient Time: Total time spent is greater than 50% in coordination of care (as documented) at patient's floor/unit and/or counseling patient:
[2020-07-15] MEDS: Rivaroxaban 20 MG TABLET PO (10:07)
[2020-07-15] MEDS: Thiamine HCL 100 MG TABLET PO (10:07)
[2020-07-15] MEDS: oxyCODONE HCl ER 10 MG TAB.ER.12H 20 MG PO ×2 (10:07→21:47)
[2020-07-15] MEDS: Magnesium Oxide 400 MG TABLET PO ×2 (10:07→16:47)
[2020-07-15] MEDS: Folic Acid 1 MG TABLET PO (10:07)
[2020-07-15] MEDS: Metoprolol Tartrate 50 MG TABLET PO (10:07)
[2020-07-15] MEDS: 0.9 % Sodium Chloride Flush 3 ML SYRINGE IVFLUSH ×2 (10:08→21:48)
[2020-07-15 12:22] LABS: Glucose, Whole Blood 110 mg/dL (60-115)
--- NOTE | 2020-07-15 12:57 | P.PNIM_ITS ---
Subjective Subjective Date of Service: 07/15/20 Interval History: C/o dysuria Breathing improved SCr improving Physical Exam Vital Signs: Vital Signs: Last Vital Signs Temp 99.3 F 07/15/20 11:40 Pulse 87 07/15/20 11:40 Resp 18 07/15/20 11:40 BP 122/52 L 07/15/20 11:40 Pulse Ox 97 07/15/20 11:40 Body Mass Index 52.2 Gen: NAD HEENT: sclera anicteric, moist mucus membranes Neck: supple Lungs: clear bilaterally Heart: irregular, distant heart sounds due to body habitus Abd: morbidly obese Ext: chronic venous stasis dermatitis Skin: warm/well-perfused Neuro: alert and oriented x3, no focal findings Psych: appropriate affect Objective Data Current Medications Generic Name Dose Route Start Last Admin Trade Name Freq PRN Reason Stop Dose Admin Acetaminophen 650 mg 07/13/20 21:56 Acetaminophen 325 Mg Tablet PO Q6H PRN Pain, Mild (Pain Scale 1-3) Docusate Sodium 100 mg 07/13/20 21:56 Docusate Sodium 100 Mg Capsule PO DAILY PRN Constipation Folic Acid 1 mg 07/14/20 09:00 07/15/20 10:07 Folic Acid 1 Mg Tablet PO 1 mg DAILY MARIANELA Administration Ceftriaxone Sodium 1 gm/ 50 mls @ 100 mls/hr 07/13/20 22:00 07/14/20 22:38 Sodium Chloride IV Infused Q24H MARIANELA Infusion Insulin Human Lispro 0 unit 07/14/20 21:00 07/15/20 12:39 Insulin Lispro 100 Unit/Ml 3 Ml Vial SUBCUT Not Given QIDACHS [facility] Protocol Magnesium Oxide 400 mg 07/14/20 08:30 07/15/20 10:07 Magnesium Oxide 400 Mg Tablet PO 400 mg BIDPC MARIANELA Administration Metoprolol Tartrate 50 mg 07/14/20 09:00 07/15/20 10:07 Metoprolol Tartrate 50 Mg Tablet PO 50 mg BID MARIANELA Administration Protocol Ondansetron HCl 4 mg 07/13/20 21:56 Ondansetron Hcl 4 Mg/2 Ml Vial IVPUSH Q8H PRN Nausea and Vomiting Oxycodone HCl 5 mg 07/13/20 21:56 07/15/20 05:39 Oxycodone Hcl Immed Release 5 Mg Tablet PO 5 mg Q6H PRN Administration Pain (Scale Score 7-10) Oxycodone HCl 20 mg 07/14/20 09:00 07/15/20 10:07 Oxycodone Hcl Er 10 Mg Tab.Er.12h PO 20 mg BID MARIANELA Administration Pharmacy Consult 1 each 07/13/20 19:24 Consult Rx Perform Med Rec MISCELLANE ONCE PRN Consult order Rivaroxaban 20 mg 07/14/20 09:00 07/15/20 10:07 Rivaroxaban 20 Mg Tablet PO 20 mg DAILY MARIANELA Administration Senna/Docusate Sodium 1 tab 07/14/20 09:00 07/15/20 10:13 Sennosides/Docusate Sodium Tablet PO Not Given DAILY MARIANELA Sodium Chloride 3 ml 07/14/20 00:00 07/15/20 10:08 0.9 % Sodium Chloride Flush 3 Ml Syringe IVFLUSH 3 ml QSHIFT MARIANELA Administration Thiamine HCl 100 mg 07/14/20 09:00 07/15/20 10:07 Thiamine Hcl 100 Mg Tablet PO 100 mg DAILY MARIANELA Administration Labs CBC & Chem 7: 07/15/20 07:36 07/15/20 07:36 Labs: Laboratory Results - last 24 hr 07/14/20 07/14/20 07/14/20 12:20 15:46 20:17 WBC RBC Hgb Hct MCV MCH MCHC RDW Plt Count MPV Immature Gran % (Auto) Neut % (Auto) Lymph % (Auto) [place] % (Auto) Eos % (Auto) Baso % (Auto) Lymph # (Auto) [place] # (Auto) Eos # (Auto) Baso # (Auto) Abs Immat Gran (auto) Absolute Neuts (auto) Absolute Nucleated RBC Nucleated RBC % (auto) Smear Tech's Comments VBG pH VBG pCO2 VBG pO2 VBG HCO3 VBG O2 Saturation VBG Base Excess Sodium Potassium Chloride Carbon Dioxide Anion Gap BUN Creatinine Estim Creat Clear Calc Estimated GFR POC Glucose 105 Random Glucose Calcium Magnesium B-Natriuretic Peptide Ur Random Sodium < 20.0 Urine Creatinine 267.40 Respiratory Panel Weiner See Note Adenovirus (Rapid PCR) Not Detected B.pert (TEM-PCR) Not Detected B.parapertussis DNA PCR Not Detected C. pneumoniae DNA (PCR) Not Detected Coronavirus OC43 (PCR) Not Detected Coronavirus HKU1 (PCR) Not Detected Coronavirus 229E (PCR) Not Detected Coronavirus NL63 (PCR) Not Detected Human Metapneumovir PCR Not Detected Influenza A (RT-PCR) Not Detected Influenza B (RT-PCR) Not Detected M. pneumoniae (PCR) Not Detected Parainfluenza 1 (PCR) Not Detected Parainfluenza 2 (PCR) Not Detected Parainfluenza 3 (PCR) Not Detected Parainfluenza 4 (PCR) Not Detected RSV (PCR) Not Detected Entero/Rhino (PCR) Not Detected SARS-CoV-2 RNA (RT-PCR) Not Detected 07/14/20 07/15/20 07/15/20 20:24 07:10 07:36 WBC 6.4 RBC 3.28 L Hgb 11.2 L Hct 34.9 L MCV 106.4 H MCH 34.1 H MCHC 32.1 RDW 14.4 Plt Count 107 L D MPV 12.4 Immature Gran % (Auto) 0.3 Neut % (Auto) 78.6 H Lymph % (Auto) 7.3 L [place] % (Auto) 9.5 Eos % (Auto) 4.0 Baso % (Auto) 0.3 Lymph # (Auto) 0.5 L [place] # (Auto) 0.6 Eos # (Auto) 0.3 Baso # (Auto) 0.0 Abs Immat Gran (auto) 0.02 Absolute Neuts (auto) 5.0 Absolute Nucleated RBC 0.000 Nucleated RBC % (auto) 0.0 Smear Tech's Comments VERIFIED VBG pH VBG pCO2 VBG pO2 VBG HCO3 VBG O2 Saturation VBG Base Excess Sodium Potassium Chloride Carbon Dioxide Anion Gap BUN Creatinine Estim Creat Clear Calc Estimated GFR POC Glucose 108 98 Random Glucose Calcium Magnesium B-Natriuretic Peptide Ur Random Sodium Urine Creatinine Respiratory Panel Weiner Adenovirus (Rapid PCR) B.pert (TEM-PCR) B.parapertussis DNA PCR C. pneumoniae DNA (PCR) Coronavirus OC43 (PCR) Coronavirus HKU1 (PCR) Coronavirus 229E (PCR) Coronavirus NL63 (PCR) Human Metapneumovir PCR Influenza A (RT-PCR) Influenza B (RT-PCR) M. pneumoniae (PCR) Parainfluenza 1 (PCR) Parainfluenza 2 (PCR) Parainfluenza 3 (PCR) Parainfluenza 4 (PCR) RSV (PCR) Entero/Rhino (PCR) SARS-CoV-2 RNA (RT-PCR) 07/15/20 07/15/20 07/15/20 07:36 07:36 07:50 WBC RBC Hgb Hct MCV MCH MCHC RDW Plt Count MPV Immature Gran % (Auto) Neut % (Auto) Lymph % (Auto) [place] % (Auto) Eos % (Auto) Baso % (Auto) Lymph # (Auto) [place] # (Auto) Eos # (Auto) Baso # (Auto) Abs Immat Gran (auto) Absolute Neuts (auto) Absolute Nucleated RBC Nucleated RBC % (auto) Smear Tech's Comments VBG pH 7.37 VBG pCO2 47 VBG pO2 43 VBG HCO3 27 H VBG O2 Saturation 68.0 VBG Base Excess 2.1 Sodium 137 Potassium 4.6 Chloride 99 Carbon Dioxide 25 Anion Gap 18 BUN 70 H Creatinine 3.75 H Estim Creat Clear Calc 33.7 Estimated GFR 16 POC Glucose Random Glucose 94 Calcium 8.4 Magnesium 2.3 B-Natriuretic Peptide 408 H Ur Random Sodium Urine Creatinine Respiratory Panel Weiner Adenovirus (Rapid PCR) B.pert (TEM-PCR) B.parapertussis DNA PCR C. pneumoniae DNA (PCR) Coronavirus OC43 (PCR) Coronavirus HKU1 (PCR) Coronavirus 229E (PCR) Coronavirus NL63 (PCR) Human Metapneumovir PCR Influenza A (RT-PCR) Influenza B (RT-PCR) M. pneumoniae (PCR) Parainfluenza 1 (PCR) Parainfluenza 2 (PCR) Parainfluenza 3 (PCR) Parainfluenza 4 (PCR) RSV (PCR) Entero/Rhino (PCR) SARS-CoV-2 RNA (RT-PCR) 07/15/20 11:37 WBC RBC Hgb Hct MCV MCH MCHC RDW Plt Count MPV Immature Gran % (Auto) Neut % (Auto) Lymph % (Auto) [place] % (Auto) Eos % (Auto) Baso % (Auto) Lymph # (Auto) [place] # (Auto) Eos # (Auto) Baso # (Auto) Abs Immat Gran (auto) Absolute Neuts (auto) Absolute Nucleated RBC Nucleated RBC % (auto) Smear Tech's Comments VBG pH VBG pCO2 VBG pO2 VBG HCO3 VBG O2 Saturation VBG Base Excess Sodium Potassium Chloride Carbon Dioxide Anion Gap BUN Creatinine Estim Creat Clear Calc Estimated GFR POC Glucose 110 Random Glucose Calcium Magnesium B-Natriuretic Peptide Ur Random Sodium Urine Creatinine Respiratory Panel Weiner Adenovirus (Rapid PCR) B.pert (TEM-PCR) B.parapertussis DNA PCR C. pneumoniae DNA (PCR) Coronavirus OC43 (PCR) Coronavirus HKU1 (PCR) Coronavirus 229E (PCR) Coronavirus NL63 (PCR) Human Metapneumovir PCR Influenza A (RT-PCR) Influenza B (RT-PCR) M. pneumoniae (PCR) Parainfluenza 1 (PCR) Parainfluenza 2 (PCR) Parainfluenza 3 (PCR) Parainfluenza 4 (PCR) RSV (PCR) Entero/Rhino (PCR) SARS-CoV-2 RNA (RT-PCR) Microbiology Microbiology Results: Microbiology 07/13/20 17:53 Blood - Venous Blood Culture - Preliminary No growth after 24 hours. 07/13/20 17:38 Blood - Venous Blood Culture - Preliminary No growth after 24 hours. 07/13/20 Unknown Urine clean catch - Clean Catch Midstream Urine Culture - Final Strep agalactiae (Grp B) Assessment and Plan (1) Hyperkalemia: Status: Acute (2) UTI (urinary tract infection): Status: Acute (3) Sepsis: Status: Acute (4) Acute renal failure: Status: Acute (5) Acute alteration in mental status: Status: Acute Assessment and Plan: hospital d#3 65yo M with morbid obesity, CHF, AF on rivaroxaban, COPD, DM2, HTN, recent ad mission 06/16-06/25/20 for acute hypercapneic respiratory failure and ADHF likely secondary to NATI/OHS discharged to short-term rehab then home 07/10/20 presented to hospital with confusion, weakness, hypoxia admitted with KAYLA # KAYLA - improving p holding diuretics and giving 1L NS, Nephrology consulted, renal US pending # hyperK - improved after SPS + albuterol; hold spironolactone # UTI, group B strep - ceftriaxone d#3 # acute encephalopathy - likely due to KAYLA + infection; resolving # AF - hold digoxin, continue metoprolol - continue rivaroxaban # CHF - hold diuretics as above; continue metoprolol # chronic hypercarbic respiratory failure - BiPAP at night and for naps, has home Trilogy venitlator # DM2 - correction-dose lispro # VTE ppx - rivaroxaban
[2020-07-15 14:31] LABS: Creatinine Urine 141.23 mg/dL
--- NOTE | 2020-07-15 15:29 | PC.NURSE ---
In afternoon pt was dozing off mult times - RN told pt he needed to put on his CPAP if he wanted to take a nap - pt stated hes awake not napping and doesnt want it on right now as hes awake. Rn told pt if he dozes off will need CPAP. Pt continuing to say hes not napping. Rn will cont to monitor resp status and encourage CPAP if pt naps.
--- NOTE | 2020-07-15 16:18 | PC.NURSE ---
Addendum entered by Sandy Kelley RN 07/15/20 18:10: lactic acid 0.9 rechecked BP 110/66 Md aware Will report to oncoming RN Original Note: Pt BP manual and automated 78/40 Pt assessed - no complaints at this time , denying dizziness/lightheadedness. HR 80-100s afib on telemtry, to bedside to assess pt as well. Ordering fluids and labs now. Will admin fluids and recheck BP
[2020-07-15] MEDS: 0.9 % Sodium Chloride 1,000 ML 500 ML IVCONT (16:28)
[2020-07-15 16:33] LABS: Glucose, Whole Blood 97 mg/dL (60-115)
[2020-07-15 17:58] LABS: Lactic Acid 0.9 mmol/L (0.5-2.0)
[2020-07-15 20:26] LABS: Glucose, Whole Blood 89 mg/dL (60-115)
[2020-07-15] MEDS: cefTRIAXone sodium 1 GM in 0.9 % Sodium Chloride 50 ML IV (21:37)
[2020-07-16 00:13] VITALS: PULSE 74; RESP 22; O2SAT 93
[2020-07-16 03:39] VITALS: BP 118/49; PULSE 87; RESP 20; TEMP 37.1; O2SAT 95
[2020-07-16 06:49] LABS: VBG Base Excess 1.7 mmol/L; VBG HCO3 27 mmol/L (22-26); VBG pCO2 46 mmHg; VBG pH 7.37 (7.32-7.43); VBG pO2 42 mmHg
[2020-07-16 06:50] LABS: Venous Blood Gas Refer to POC result
[2020-07-16 07:25] VITALS: BP 108/48; PULSE 73; RESP 18; TEMP 36.9; O2SAT 93
[2020-07-16 07:37] LABS: Anion Gap 14 (12-20); Blood Urea Nitrogen 53 mg/dL (9-16); Calcium 8.7 mg/dL (8.4-10.2); Carbon Dioxide 27 mmol/L (22-29); Chloride 103 mmol/L (96-108); Creatinine Clr Calc Pharmacy 65.8; Estimated Glomerular Filt Rate 35; Glucose Random 87 mg/dL (60-115); Potassium 4.2 mmol/L (3.3-5.1); Sodium 140 mmol/L (135-145)
[2020-07-16 07:52] LABS: B Type Natriuretic Peptide 615 pg/mL (<100)
[2020-07-16 08:00] LABS: Glucose, Whole Blood 94 mg/dL (60-115)
[2020-07-16] MEDS: Sennosides/Docusate Sodium TABLET 1 TAB PO (08:38)
[2020-07-16] MEDS: oxyCODONE HCl ER 10 MG TAB.ER.12H 20 MG PO (08:38)
[2020-07-16 08:39] LABS: Vitamin B12 626 pg/mL (200-900)
[2020-07-16] MEDS: Thiamine HCL 100 MG TABLET PO (08:39)
[2020-07-16] MEDS: Rivaroxaban 20 MG TABLET PO (08:39)
[2020-07-16] MEDS: Magnesium Oxide 400 MG TABLET PO (08:39)
[2020-07-16] MEDS: Folic Acid 1 MG TABLET PO (08:39)
[2020-07-16 08:40] VITALS: BP 108/48; PULSE 73
[2020-07-16] MEDS: 0.9 % Sodium Chloride Flush 3 ML SYRINGE IVFLUSH (08:40)
--- NOTE | 2020-07-16 09:37 | P.CDIC_ITS ---
CDI Concurrent Query Service Date: 07/16/20 Documentation Clarification: Please clarify if you are treating a proba ble/suspected/likely or confirmed: Sepsis Sepsis due to Urinary tract infection, poa, resolved, txt, rule out Please specify if known: SEPSIS DUE TO URINARY TRACT INFECTION Provider Response: Other Other Diagnosis: sepsis due to UTI PLEASE DO NOT DELETE/MODIFY EXISTING CONTENT Additional information is needed in order to code to the highest accuracy and appropriate Severity of Illness (SOI). Please clarify the information noted below in your progress notes and discharge summary. Risk Factors/Clinical Indicators/Treatments H&P: pt found to have confusion, reports dysuria, frequency and urgency, denies fevers, chills. Dx UTI, KAYLA, Sepsis, encephalopathy Temp 98.4 Wbc 9.0 RR 24 HR 102 LA 1.6 Urine positive for leukocyte, nitrite neg, trace bacteria, cloudy CDS: Loretta Chen CCS, [facility]IS Contact Number: [phone] Please Review the information above and exercise your independent professional judgment in responding to the query. If you concur, pleas document in the PROGRESS NOTES and DISCHARGE SUMMARY. If you do not agree with the query, please document in the query above. THIS QUERY IS PART OF THE PERMANENT MEDICAL RECORD
--- NOTE | 2020-07-16 10:41 | HO.PM.IMPN ---
Subjective Subjective Date of Service: 07/16/20 Interval History: got another 1L IV fluid bolus for hypotension yesterday afternoon -> BP improved no dizziness/lightheadedness dysuria improved, renal US without signs of hydronephrosis breathing stable Physical Exam Vital Signs: Vital Signs: Last Vital Signs Temp 98.5 F 07/16/20 07:25 Pulse 73 07/16/20 08:40 Resp 18 07/16/20 07:25 BP 108/48 L 07/16/20 08:40 Pulse Ox 93 07/16/20 07:25 Body Mass Index 52.2 Gen: NAD HEENT: sclera anicteric, moist mucus membranes Neck: supple Lungs: clear bilaterally Heart: irregular, distant heart sounds due to body habitus Abd: morbidly obese Ext: chronic venous stasis dermatitis Skin: warm/well-perfused Neuro: alert and oriented x3, no focal findings Psych: appropriate affect Objective Data Current Medications Generic Name Dose Route Start Last Admin Trade Name Freq PRN Reason Stop Dose Admin Acetaminophen 650 mg 07/13/20 21:56 Acetaminophen 325 Mg Tablet PO Q6H PRN Pain, Mild (Pain Scale 1-3) Docusate Sodium 100 mg 07/13/20 21:56 Docusate Sodium 100 Mg Capsule PO DAILY PRN Constipation Folic Acid 1 mg 07/14/20 09:00 07/16/20 08:39 Folic Acid 1 Mg Tablet PO 1 mg DAILY MARIANELA Administration Cefazolin Sodium 1 gm/ Sodium 50 mls @ 100 mls/hr 07/16/20 08:00 07/16/20 09:18 Chloride IV Infused Q8H MARIANELA Infusion Insulin Human Lispro 0 unit 07/14/20 21:00 07/16/20 08:05 Insulin Lispro 100 Unit/Ml 3 Ml Vial SUBCUT Not Given QIDACHS [facility] Protocol Magnesium Oxide 400 mg 07/14/20 08:30 07/16/20 08:39 Magnesium Oxide 400 Mg Tablet PO 400 mg BIDPC MARIANELA Administration Metoprolol Tartrate 50 mg 07/14/20 09:00 07/16/20 08:40 Metoprolol Tartrate 50 Mg Tablet PO Not Given BID MARIANELA Protocol Ondansetron HCl 4 mg 07/13/20 21:56 Ondansetron Hcl 4 Mg/2 Ml Vial IVPUSH Q8H PRN Nausea and Vomiting Oxycodone HCl 5 mg 07/13/20 21:56 07/15/20 14:43 Oxycodone Hcl Immed Release 5 Mg Tablet PO 5 mg Q6H PRN Administration Pain (Scale Score 7-10) Oxycodone HCl 20 mg 07/14/20 09:00 07/16/20 08:38 Oxycodone Hcl Er 10 Mg Tab.Er.12h PO 20 mg BID MARIANELA Administration Pharmacy Consult 1 each 07/13/20 19:24 Consult Rx Perform Med Rec MISCELLANE ONCE PRN Consult order Rivaroxaban 20 mg 07/14/20 09:00 07/16/20 08:39 Rivaroxaban 20 Mg Tablet PO 20 mg DAILY MARIANELA Administration Senna/Docusate Sodium 1 tab 07/14/20 09:00 07/16/20 08:38 Sennosides/Docusate Sodium Tablet PO 1 tab DAILY MARIANELA Administration Sodium Chloride 3 ml 07/14/20 00:00 07/16/20 08:40 0.9 % Sodium Chloride Flush 3 Ml Syringe IVFLUSH 3 ml QSHIFT MARIANELA Administration Thiamine HCl 100 mg 07/14/20 09:00 07/16/20 08:39 Thiamine Hcl 100 Mg Tablet PO 100 mg DAILY MARIANELA Administration Labs CBC & Chem 7: 07/15/20 07:36 07/16/20 06:38 Labs: Laboratory Results - last 24 hr 07/14/20 07/15/20 07/15/20 07:15 11:37 14:02 VBG pH VBG pCO2 VBG pO2 VBG HCO3 VBG O2 Saturation VBG Base Excess Sodium Potassium Chloride Carbon Dioxide Anion Gap BUN Creatinine Estim Creat Clear Calc Estimated GFR POC Glucose 110 Random Glucose Lactic Acid Calcium B-Natriuretic Peptide Vitamin B12 626 Ur Random Sodium 36.0 Urine Creatinine 07/15/20 07/15/20 07/15/20 14:02 16:25 17:32 VBG pH VBG pCO2 VBG pO2 VBG HCO3 VBG O2 Saturation VBG Base Excess Sodium Potassium Chloride Carbon Dioxide Anion Gap BUN Creatinine Estim Creat Clear Calc Estimated GFR POC Glucose 97 Random Glucose Lactic Acid 0.9 Calcium B-Natriuretic Peptide Vitamin B12 Ur Random Sodium Urine Creatinine 141.23 07/15/20 07/16/20 07/16/20 20:18 06:38 06:38 VBG pH VBG pCO2 VBG pO2 VBG HCO3 VBG O2 Saturation VBG Base Excess Sodium 140 Potassium 4.2 Chloride 103 Carbon Dioxide 27 Anion Gap 14 BUN 53 H Creatinine 1.92 H Estim Creat Clear Calc 65.8 Estimated GFR 35 POC Glucose 89 Random Glucose 87 Lactic Acid Calcium 8.7 B-Natriuretic Peptide 615 H Vitamin B12 Ur Random Sodium Urine Creatinine 07/16/20 07/16/20 06:40 07:23 VBG pH 7.37 VBG pCO2 46 VBG pO2 42 VBG HCO3 27 H VBG O2 Saturation 68.0 VBG Base Excess 1.7 Sodium Potassium Chloride Carbon Dioxide Anion Gap BUN Creatinine Estim Creat Clear Calc Estimated GFR POC Glucose 94 Random Glucose Lactic Acid Calcium B-Natriuretic Peptide Vitamin B12 Ur Random Sodium Urine Creatinine Microbiology Microbiology Results: Microbiology 07/13/20 17:53 Blood - Venous Blood Culture - Preliminary No growth after 48 hours. 07/13/20 17:38 Blood - Venous Blood Culture - Preliminary No growth after 48 hours. 07/13/20 Unknown Urine clean catch - Clean Catch Midstream Urine Culture - Final Strep agalactiae (Grp B) Assessment and Plan (1) Hyperkalemia: Status: Acute (2) UTI (urinary tract infection): Status: Acute (3) Sepsis: Status: Acute (4) Acute renal failure: Status: Acute (5) Acute alteration in mental status: Status: Acute Assessment and Plan: hospital d#4 65yo M with morbid obesity, CHF, AF on rivaroxaban, COPD, DM2, HTN, recent admission 06/16-06/25/20 for acute hypercapneic respiratory failure and ADHF likely secondary to NATI/OHS discharged to short-term rehab then home 07/10/20 presented to hospital with confusion, weakness, hypoxia admitted with KAYLA and sepsis due to group B streptococcal UTI # KAYLA - continues to improve after holding diuretics and giving gentle fluid boluses. Nephrology following # hyperK - resolved after SPS + albuterol; continue to hold spironolactone # UTI, group B strep - got 3d of ceftriaxone, switch to cefazolin; will d/c on cephalexin or cefadroxil # acute encephalopathy - likely due to KAYLA + infection; resolved # AF - continue to hold digoxin, continue metoprolol - continue rivaroxaban # CHF - hold diuretics as above; continue metoprolol # chronic hypercarbic respiratory failure due to NATI/OHS - BiPAP at night and for naps, has home Trilogy venitlator # DM2 - correction-dose lispro # VTE ppx - rivaroxaban # dispo - will likely need STR; PT eval
--- NOTE | 2020-07-16 10:59 | CONS_ITS ---
DATE OF SERVICE: 07/15/2020 REASON FOR CONSULTATION: I was called to see this patient to assist in the management of acute kidney injury and hyperkalemia. HISTORY OF PRESENT ILLNESS: To summarize, Juan is a 65-year-old man with history of morbid obesity, who has a baseline creatinine of around 1.0 mg/dL, history of congestive heart failure and COPD against backdrop of diabetes mellitus, hypertension, comes in because of confusion. Prior to admission, he was on Bumex 2 mg b.i.d., spironolactone as well as a low dose of lisinopril. At the time of admission, he was found to have acute kidney injury with BUN of 74, creatinine of 5.53, potassium of 6.6. The diuretics have been held. He did receive some IV fluids. He was hypotensive on admission as well. With the above measures, the serum creatinine has already decreased to 3.5 within the last 24 hours and potassium has been normalized. This consultation has been requested for management of acute kidney injury and hyperkalemia. PAST MEDICAL HISTORY: Ongoing medical problems include morbid obesity, hypertension, diabetes mellitus, COPD, obstructive sleep apnea, history of gout, congestive heart failure, peripheral neuropathy. SOCIAL HISTORY: He does consume alcohol of about 3 drinks a day. There is no history of smoking. No history of any drug abuse. ALLERGIES: HE IS ALLERGIC TO CODEINE. HOME MEDICATIONS: Include allopurinol 300 mg, metformin 500 mg b.i.d., metoprolol, oxycodone, simvastatin, albuterol, Bumex 2 mg b.i.d., folic acid, lisinopril 2.5 mg, and spironolactone 25 mg. All the current medications were reviewed. REVIEW OF SYSTEMS: He had some confusion. He seems to be improving. No headache, nausea, or vomiting. No shortness of breath. No cough. No urinary symptoms. No fever. No rash. All other systems were reviewed. PHYSICAL EXAMINATION: GENERAL: Juan is a 65-year-old man, who is obese. He is sitting up in bed, not in any distress. NECK: Supple. No JVD. HEENT: Mucosa is dry. LUNGS: Bilateral rhonchi. HEART: S1, S2 heard. No gallop. ABDOMEN: Obese, soft, nontender. EXTREMITIES: 1+ edema with hyperpigmentation in the legs. No petechial rash. VITAL SIGNS: Blood pressure today was 107/58, pulse 91, temperature 99.4. LABORATORY DATA: As of today, sodium 137, potassium 4.6, BUN 70, creatinine 3.75, calcium 8.4. BNP of 408. ABG showed pH of 7.37, pCO2 of 47. Urine sodium was less than 20. Fraction excretion less than 1%. There was no protein or blood by dipstick. There was 5 to 9 wbc's. Hemoglobin 11.2, platelets 148,[address] head on admission was unremarkable. IMPRESSION: 65-year-old man with morbid obesity. He comes in with acute kidney injury and hyperkalemia due to hypoperfusion/volume depletion. Urine sodium was less than 20 with low fraction excretion, which supports hypoperfusion. The hyperkalemia is due to the combination of use of spironolactone in the setting of acute kidney injury. Obstructive uropathy has to be ruled out in this patient. RECOMMENDATIONS: My recommendation will be to hold the diuretics. I agree with cautious hydration with normal saline at 50 mL/hour and avoid hypotension. Continue to avoid nephrotoxic agents. Obtain renal ultrasonogram to rule out hydronephrosis/obstruction. Further workup will be based on the outcome of the baseline investigations. We will follow him along with the team. Souleymane Aleman MD BPA/MODL / [id number]
--- NOTE | 2020-07-16 11:05 | MHC.CM.PN ---
EMR REVIEWED, PER HOSPITALIST PT SLOWLY IMPROVING BUT NOT YET READY FOR D/C, ANTICIPATED D/C 1-2 DAYS TO STR, CM RECEIVED MESSAGE FROM [facility] REPORTING PT IS ACTIVE W/THEM, REFERRAL MADE VIA [employer]. DISCHARGE PLAN: HOME W/[facility] VS STR, CM WILL DISCUSS W/PT STR OPTIONS W/PT
[2020-07-16 11:30] VITALS: BP 108/50; PULSE 93; RESP 18; TEMP 36.8; O2SAT 91
[2020-07-16 11:37] LABS: Glucose, Whole Blood 111 mg/dL (60-115)
[2020-07-16 12:02] VITALS: BP 108/50; PULSE 93; O2SAT 91
--- NOTE | 2020-07-16 12:12 | PM.PNNEP ---
Subjective Subjective Date of Service: 07/16/20 Interval history: Seen and examiend Events noted SCR cont to grad decr Physical Exam Vital Signs: Vital Signs: Last Vital Signs Temp 98.3 F 07/16/20 11:30 Pulse 93 07/16/20 11:30 Resp 18 07/16/20 11:30 BP 108/50 L 07/16/20 11:30 Pulse Ox 91 L 07/16/20 11:30 Body Mass Index 52.2 Const: General: cooperative, no acute distress, ill appearing and poor hygiene Orientation/consciousness: oriented to person and oriented to place Eyes: General: appearance normal, both eyes and all related structures Resp: Effort & Inspection: normal respiratory effort and able to speak in complete sentences Cardio: Rate: regular rate Rhythm: regular rhythm GI: Palpation (GI): Soft to palpation Auscultation: normal bowel sounds Skin: General skin exam: no rashes or lesions noted Neuro: General: oriented to person and oriented to place Cognition (Neuro): normal cognition Extrem: General: Yes normal to inspection and Yes no pedal edema Objective Data Labs CBC & Chem 7: 07/15/20 07:36 07/16/20 06:38 Labs: Laboratory Results - last 24 hr 07/14/20 07/15/20 07/15/20 07:15 11:37 14:02 VBG pH VBG pCO2 VBG pO2 VBG HCO3 VBG O2 Saturation VBG Base Excess Sodium Potassium Chloride Carbon Dioxide Anion Gap BUN Creatinine Estim Creat Clear Calc Estimated GFR POC Glucose 110 Random Glucose Lactic Acid Calcium B-Natriuretic Peptide Vitamin B12 626 Ur Random Sodium 36.0 Urine Creatinine 07/15/20 07/15/20 07/15/20 14:02 16:25 17:32 VBG pH VBG pCO2 VBG pO2 VBG HCO3 VBG O2 Saturation VBG Base Excess Sodium Potassium Chloride Carbon Dioxide Anion Gap BUN Creatinine Estim Creat Clear Calc Estimated GFR POC Glucose 97 Random Glucose Lactic Acid 0.9 Calcium B-Natriuretic Peptide Vitamin B12 Ur Random Sodium Urine Creatinine 141.23 07/15/20 07/16/20 07/16/20 20:18 06:38 06:38 VBG pH VBG pCO2 VBG pO2 VBG HCO3 VBG O2 Saturation VBG Base Excess Sodium 140 Potassium 4.2 Chloride 103 Carbon Dioxide 27 Anion Gap 14 BUN 53 H Creatinine 1.92 H Estim Creat Clear Calc 65.8 Estimated GFR 35 POC Glucose 89 Random Glucose 87 Lactic Acid Calcium 8.7 B-Natriuretic Peptide 615 H Vitamin B12 Ur Random Sodium Urine Creatinine 07/16/20 07/16/20 07/16/20 06:40 07:23 11:34 VBG pH 7.37 VBG pCO2 46 VBG pO2 42 VBG HCO3 27 H VBG O2 Saturation 68.0 VBG Base Excess 1.7 Sodium Potassium Chloride Carbon Dioxide Anion Gap BUN Creatinine Estim Creat Clear Calc Estimated GFR POC Glucose 94 111 Random Glucose Lactic Acid Calcium B-Natriuretic Peptide Vitamin B12 Ur Random Sodium Urine Creatinine Microbiology Microbiology Results: Microbiology 07/13/20 17:53 Blood - Venous Blood Culture - Preliminary No growth after 48 hours. 07/13/20 17:38 Blood - Venous Blood Culture - Preliminary No growth after 48 hours. 07/13/20 Unknown Urine clean catch - Clean Catch Midstream Urine Culture - Final Strep agalactiae (Grp B) Assessment & Plan Assessment and plan (1) Hyperkalemia: Status: Acute (2) UTI (urinary tract infection): Status: Acute (3) Sepsis: Status: Acute (4) Acute renal failure: Status: Acute (5) Acute alteration in mental status: Status: Acute Assessment and Plan: 1. Non-Oliguroic KAYLA: responding to gentle IVF c/w renal hypoperfsuion and FENA < 1% bsl Scr 1.0 2. HyperK: resolved after 1 does of SPS 3. UTI 4. Obesity 5. Resp Status: stabtle 6. Vol staus: challenging to manage d/t obesity REC: cont to hold diuretics; hold IVF and track UOP/reanl func Time Spent With Patient Time: Total time spent is greater than 50% in coordination of care (as documented) at patient's floor/unit and/or counseling patient:
--- NOTE | 2020-07-16 12:26 | MHC.CM.PN ---
PT CODED, DAUGHTER CALLED TO BEDSIDE, (EX) AT BEDSIDE, HCP INFO GIVEN TO NURSING.
--- NOTE | 2020-07-16 12:29 | PM.EVENT ---
Event Note Date of Service: 07/16/20 Event Note: Altagracia gonzalez called at 11:44a for patient suddenly becoming unresponsive, apneic, and pulseless after being transferred from bed to chair. Prior to transfer per nursing staff, pt was awake, alert, in NAD, and not requiring O2. CPR initiated immediately. Monitor placed and pt found to be in VF. Pt underwent chest compressions, intubation by ED physician Brunilda Sierra, and 10 rounds of defibrillation @ 200J biphasic and received total of 10 x 1mg epinephrine, 2 x 300mg amiodarone, 1 x 100mg lidocaine with persistent VF and no ROSC. Pt's daughter Maxim came in and after 35 minutes of ACLS, resuscitative efforts were discontinued given no meaningful chance of recovery. Time of 12:19p. Condolesences offered.
[2020-07-16 17:16] LABS: Urea, Random Urine 306 mg/dL
--- NOTE | 2020-07-17 19:01 | PM.DS ---
DS: Providers Provider Date of Service: 07/18/20 Date of admission: 07/13/20 21:50 Consults: 07/14/20 01:37 Consult Respiratory Therapy Routine Reason for consultation: [employer]GRITY 07/14/20 13:29 Consult to Nephrology Routine Consulting Provider: [facility] Reason for consultation: KAYLA, R-sided HF DS: Diagnosis Discharge Diagnosis (1) Hyperkalemia: Status: Acute (2) UTI (urinary tract infection): Status: Acute (3) Sepsis: Status: Acute (4) Acute renal failure: Status: Acute (5) Acute alteration in mental status: Status: Acute (6) Cardiopulmonary arrest: Status: Acute DS: Summary Hospital Course Hospital Course: From admission history and physical by hospitalist Rosalee Benson, 07/13/20: This is a 65-year-old male with past medical history of COPD, CHF, AFib on Xarelto, morbid obesity, DM, HTN, peripheral neuropathy and osteoarthritis who presents to the hospital with confusion as well as weakness. Patient was found to be 80% on room air by EMS. Son at bedside reports that this morning his friend went to visit him and patient was delusional and therefore they were concerned and brought him into the hospital. Of note patient was discharged from the hospital on 06/25 after being managed for hypercapnic respiratory failure with acute decompensated heart failure. He was discharged to rehab and left rehab on 07/08. Son reports that on leaving rehab he was doing very well, walking, talking, his baseline is alert oriented x3 but today appeared to be confused . Pt is oriented to self and place but not to time, his nausea was happening to him, why he is in the hospital. But he otherwise able to give good history. reports dysuria, frequency, and urgency. He otherwise denies any fever or chills, no abdominal pain nausea or vomiting, no diarrhea constipation, no lower extremity edema. Denies any increased cough or sputum production On arrival to the ED hemodynamically stable with temp of 98.4, heart rate of 86, blood pressure of 118/81, respiratory rate of 20, satting 99% on his baseline 3 L of oxygen Labs are significant for WBC count of 9.0, hemoglobin 13.3, PT of 24, INR of 2.0, pH of 7.3, pCO2 of 57, sodium of one hundred thirty-three, potassium 6.6, BUN of 74, creatinine of 5.53, UA that is positive for urine leukocyte Estrace as well as WBC COVID-19 negative The patient was admitted in acute renal failure with hyperkalemia, and septic from what turned out to be a group B streptococcal urinary tract infection. Potassium normalized after giving Kayexalate and albuterol and holding spironolactone. Acute kidney injury was attributed to prerenal azotemia with possible contribution of septic ATN. Creatinine improved after gentle fluid boluses. Encephalopathy was attributed to infection and KAYLA and improved over the course of hospitalization. He was treated with BiPAP at night and during naps for chronic hypercarbic respiratory failure. Quite suddenly, he became unresponsive, apneic, and pulseless on 07/16/2020 after being transferred from his bed to a chair. Prior to that, he had been awake, alert, and in no acute distress with normal oxygen saturation on room air. A code blue was called. CPR was initiated immediately. Patient was found to be in ventricular fibrillation. He underwent 10 rounds of defibrillation at 200 joules and received a total of 10 rounds of epinephrine along with 2 doses of amiodarone and 1 dose of lidocaine without return of spontaneous circulation. After 35 minutes of ACLS, resuscitative efforts were discontinued giving no meaningful chance of recovery. His daughter was at the bedside at the time the code was ended. Time of was 12:19pm. Time Spent with Patient Discharge coordination time: Greater than 30 minutes Physical Exam Vital Signs: Vital Signs: Patient unresponsive, apneic, pulseless, no reflexes. Pronounced at 12:19pm. DS: Data Data Completed and Pending Completed studies during hospitalization [Text1]: Procedures Assistance with Respiratory Ventilation, Less than 24 Consecutive Hours, Continuous Positive Airway Pressure (06/16/20) Insertion of Endotracheal Airway into Trachea, Via Natural or Artificial Opening (07/13/20) Performance of Cardiac Output, Single, Manual (07/13/20) Transfusion of Nonautologous Frozen Plasma into Peripheral Vein, Percutaneous Approach (06/16/20) Labs on day of discharge: Preliminary micro results at discharge 07/13/20 17:53 Blood Culture - Preliminary Blood - Venous No growth after 48 hours. 07/13/20 17:38 Blood Culture - Preliminary Blood - Venous No growth after 48 hours. Discharge Plan Discharge Date/Time: 07/16/20 12:18 Patient Disposition: Discharge Medications: No Action bumetanide 2 mg Tablet 2 mg PO BID@0800,1700 RF: 0 sennosides-docusate sodium [Stimulant Laxative Plus] 8.6-50 mg Tablet 1 tab PO DAILY RF: 0 folic acid 1 mg Tablet 1 mg PO DAILY RF: 0 albuterol sulfate 90 mcg/actuation HFA aerosol inhaler 2 puff inhalation QID PRN (Reason: Shortness Of Breath) RF: 0 lisinopril 2.5 mg Tablet 2.5 mg PO DAILY RF: 0 metformin 500 mg tablet 500 mg PO BID RF: 0 simvastatin 40 mg tablet 1 tab PO BEDTIME RF: 0 metoprolol tartrate 50 mg tablet 50 mg PO BID RF: 0 allopurinol 300 mg tablet 300 mg PO DAILY RF: 0 oxycodone 5 mg tablet 5 mg PO Q6H PRN (Reason: Pain (Scale Score 7-10)) RF: 0 oxycodone [OxyContin] 20 mg tablet,oral only,ext.rel.12 hr 20 mg PO BID RF: 0 Xarelto 20 mg Tablet 20 mg PO DAILY Qty: 30 RF: 0 digoxin 250 mcg (0.25 mg) Tablet 250 mcg PO DAILY Qty: 30 RF: 0 spironolactone 25 mg Tablet 25 mg PO DAILY Qty: 30 RF: 0 acetazolamide 250 mg Tablet 250 mg PO BID Qty: 60 RF: 0 magnesium oxide 400 mg (241.3 mg magnesium) Tablet 400 mg PO BIDPC Qty: 60 RF: 0 Discharge Date/Time: 07/16/20 12:18
[2020-07-19 06:22] LABS: Vitamin B1 8 nmol/L (8-30)
== END 2020-07-16 12:18 | disposition expired | DRG 872 ==
LOC: HO.ED 21:01 → HO.EDOVER 22:02 → HO.S3 23:20
PROVIDERS: Admitting Provider Internal Medicine; Emergency Provider Internal Medicine; Visit Provider Family Medicine
DX: A41.9 Sepsis, unspecified organism (principal); N17.9 Acute kidney failure, unspecified; N39.0 Urinary tract infection, site not specified; Z68.43 Body mass index [BMI] 50.0-59.9, adult; J96.12 Chronic respiratory failure with hypercapnia; E66.2 Morbid (severe) obesity with alveolar hypoventilation; E87.5 Hyperkalemia; E86.0 Dehydration; B95.1 Streptococcus, group B, as the cause of diseases classified elsewhere; I48.91 Unspecified atrial fibrillation; E11.42 Type 2 diabetes mellitus with diabetic polyneuropathy; Z20.822 Contact with and (suspected) exposure to COVID-19; Z88.5 Allergy status to narcotic agent; Z79.01 Long term (current) use of anticoagulants; Z79.84 Long term (current) use of oral hypoglycemic drugs; Z79.899 Other long term (current) drug therapy
CPT/HCPCS: 36415; 70450; 71045; 76775; 80048; 80076; 81001; 81003; 82140; 82310; 82607; 82947; 83605; 83735; 83880; 84100; 84300; 84425; 84484; 84540; 85025; 85610; 85730; 87040; 87086; 87147; 87633; 87635; 93005; 94660; 94799; 96365; 96366; 96375; 97162; 99284; 99291; J0171; J0282; J0610; J0690; J0696